=== PATIENT | female | born 1960 | race Caucasian/White ===

== ENCOUNTER 2019-12-24 09:25 | Outpatient (CLI) | payer MEDICARE, BC, SELFPAY ==
--- NOTE | 2019-12-24 | ECHO_ITS ---
Patient Info Name: Ronel Salinas Age: 59 years : 1960 Gender: Female Ht: 63 in Wt: 280 lbs BSA: 2.46 m2 HR: 52 bpm BP: 170 / 73 mmHg Heart Rhythm: Sinus Rhythm Technical Quality: Fair Exam Date: 12/24/2019 9:55 AM Exam Location: [facility] Patient Status: Outpatient Admit Date: 12/24/2019 Staff Ordering Physician: Fabián, Smiley AGUIRRE Receiver: Jessica Joseph RDCS Attending Provider: Willy, Smiley AGUIRRE Exam Type: CA echo doppler color flow Study Info Indications - chf on continuous 02 Complete two-dimensional, color flow and Doppler transthoracic echocardiogram is performed. Summary 1. Left ventricular chamber dimension is mildly enlarged. 2. Left ventricular systolic function is normal, estimated at Empty. 3. LV contraction is dyssynchronous due to intraventricular conduction delay/bundle branch block. 4. Left atrial chamber dimension is moderately enlarged. 5. There is mild aortic valve sclerosis. 6. There is mild mitral valve regurgitation. Left Ventricle Left ventricular chamber dimension is mildly enlarged. Left ventricular systolic function is normal, estimated at Empty. There is mild concentric increased left ventricular wall thickness. The left ventricular diastolic function is grade I diastolic dysfunction. LV contraction is dyssynchronous due to intraventricular conduction delay/bundle branch block. Right Ventricle Right ventricular chamber dimension is normal. Left Atria Left atrial chamber dimension is moderately enlarged. Right Atria Right atrial chamber dimension is normal. Aortic Valve The aortic valve is trileaflet. There is mild aortic valve sclerosis. Pulmonic Valve The pulmonic valve is not well visualized. Mitral Valve The mitral valve has normal leaflets. There is mild mitral valve regurgitation. Tricuspid Valve The tricuspid valve leaflets are normal. There is mild to moderate tricuspid valve regurgitation. Moderate pulmonary hypertension, estimated pulmonary arterial systolic pressure is 51 mmHg. Pericardium/Pleural The pericardium appears normal. Aorta The aortic root size at the sinus of Valsalva is normal. Left Ventricular Outflow Tract Name Value Normal LVOT 2D LVOT Diameter 2.0 cm LVOT Doppler LVOT Peak Gradient 5 mmHg LVOT Mean Gradient 3 mmHg LVOT VTI 20 cm LVOT VTI/AV VTI Ratio 0.7 LVOT Stroke Volume 62 ml LVOT CO 15.2 l/min LVOT CI 6.2 l/min/m2 Pulmonic Valve Name Value Normal PV Doppler PV Peak Gradient 4 mmHg Mitral Valve Name
== END 2019-12-24 09:26 | disposition home or self-care (01) ==
PROVIDERS: PCP Emergency Medicine; Visit Provider Nurse Practitioner
DX: I50.9 Heart failure, unspecified (principal); I34.0 Nonrheumatic mitral (valve) insufficiency
CPT/HCPCS: 93306

== ENCOUNTER 2019-12-24 10:34 | Emergency (ER) | payer MEDICARE, MEDICAID, SELFPAY ==
--- NOTE | ~2019-12-24 | XR_ITS ---
EXAMINATION: XR chest 2V EXAM DATE: 12/24/2019 11:19 INDICATION: Shortness of breath. TECHNIQUE: Portable AP frontal chest x-ray was obtained. Comparison is made to prior examination from 06/18/2019. FINDINGS: The lungs are clear. There are no pleural effusions. The cardiomediastinal silhouette is within normal limits. There is no pneumothorax suspected. The bones and soft tissues are unremarkab le. IMPRESSION: No acute cardiopulmonary findings. Reviewed, dictated and finalized at location A.
[2019-12-24 10:45] VITALS: BP 170/78; PULSE 77; RESP 24; TEMP 36.5; O2SAT 96
--- NOTE | 2019-12-24 10:55 | ECG_ITS ---
SINUS RHYTHM NORMAL ECG Electronically Signed On 12-24-2019 13:40:58 CDT by Rodrick Magallanes D.O. COMPARED TO ECG 06/18/2019 14:22:04 NO SIGNIFICANT CHANGES MTDD
--- NOTE | 2019-12-24 11:02 | ED.SOB ---
HPI - SOB/Dyspnea General Chief Complaint: Shortness of Breath/Dyspnea Stated Complaint: back and chest pain Time Seen by Provider: 12/24/19 11:02 Source: patient Mode of arrival: ambulatory Limitations: no limitations History of Present Illness HPI Narrative: A 59 y/o female, with a PMHx of COPD, presents to the ED with c/o increased SOB for 3 days. Pt states that she is on 3L of oxygen but her breathing has become more erratic . Pt's SOB is worse when laying flat, which is not normal for her. Pt had an echocardiogram scheduled for today so she figured she should come to the ED for evaluation while she is here. Pt also c/o chest heaviness, right rib pain, right-sided mid back pain, and left shoulder pain. Pt states that the rib pain and back pain are worse when laying down and alleviated when sitting up. She denies a cough, a fever, N/V, and a recent injury. Pertinent past history: COPD Onset (ago): day(s) (3) Exacerbating factors: lying flat Related Data Allergies Allergy/AdvReac Type Severity Reaction Status Date / Time Penicillins Allergy Unknown Verified 06/27/15 15:30 Review of Systems Review of Systems: All systems reviewed & are unremarkable except as noted in HPI and below Constitutional: Constitutional: Denies fever(s) Comments: Denies: a recent injury Cardiovascular: Comments: Reports: chest heaviness Respiratory: Respiratory: Denies cough and Reports dyspnea Gastrointestinal: Gastrointestinal: Denies nausea and Denies vomiting Musculoskeletal: Comments: Reports: right rib pain, right-sided mid back pain, left shoulder pain [facility] Past Medical History Medical History (Updated 12/24/19 @ 13:02 by Dwight Fernando MD) COPD (chronic obstructive pulmonary disease) Oxygen dependent 3L Family History Family History Father Cerebrovascular accident Mother Family history of malignant neoplasm of ovary Social History Social History Smoking status: Smoker, status unknown Alcohol intake: never Comments No PCP on file. Exam Const: General: no acute distress, alert and ill appearing chronically Orientation/consciousness: patient oriented x3 HENMT: Head: normal to inspection Chest: Chest palpation & inspection: tenderness (right inferiorlateral ) Resp: Effort & Inspection: normal respiratory effort Auscultation: wheezes Cardio: Rate: regular rate Rhythm: regular rhythm GI: GI Palp: Yes Soft to palpation and No Tenderness to palpation present (GI) Skin: General skin exam: normal color Neuro: General: patient oriented x3, moves all extremities and no focal motor deficits Speech: normal speech Extrem: General: no edema Course Vital Signs Vital signs: Vital Signs Temperature 36.5 C 12/24/19 10:45 Pulse Rate 77 12/24/19 10:45 Respiratory Rate 24 H 12/24/19 10:45 Blood Pressure 170/78 H 12/24/19 10:45 Pulse Oximetry 96 12/24/19 10:45 Temperature 36.5 C 12/24/19 10:45 Pulse Rate 77 12/24/19 13:20 Respiratory Rate 24 H 12/24/19 13:20 Blood Pressure 123/90 12/24/19 13:20 Pulse Oximetry 99 12/24/19 13:20 MDM - SOB/Dyspnea Medical Records Attestation: I reviewed the patient's medical records. Lab Data Attestation: I reviewed the patient's lab results. Result diagrams: 12/24/19 11:03 12/24/19 11:03 Labs: Lab Results 12/24/19 12/24/19 Range/Units 11:03 11:03 WBC 12.9 H (4.5-10.0) K/mm3 RBC 4.67 (4.2-5.4) M/mm3 Hgb 13.8 (12.0-15.0) g/dL Hct 43.7 (37.0-47.0) % MCV 93.6 (80-100) fl MCH 29.6 (26-34) pg MCHC 31.6 L (32-36) g/dl RDW 12.8 (11.5-14.5) % Plt Count 267 (150-375) k/mm3 MPV 11.2 H (7.4-10.4) fl Immature Gran % (Auto) 0.5 (0-0.5) % Neut % (Auto) 72.4 (45.5-73.1) % Lymph % (Auto) 14.5 L (18.3-44.2) % [place] % (Auto) 6.6 (2.6-8.5) % Eos % (Auto) 5.6 H
[2019-12-24 11:09] LABS: Basophils Absolute Auto 0.1 K/mm3 (0.0-0.1); Basophils Percent Auto 0.4 % (0.2-1.2); Eosinophils Absolute Auto 0.7 K/mm3 (0-0.3); Eosinophils Percent Auto 5.6 % (0-4.4); Hematocrit 43.7 % (37.0-47.0); Hemoglobin 13.8 g/dL (12.0-15.0); Immature Granulocyte Absolute 0.07 K/mm3 (0.00-0.031); Immature Granulocyte Percent A 0.5 % (0-0.5); Lymphocytes Absolute Auto 1.87 K/mm3 (0.9-3.2); Lymphocytes Percent Auto 14.5 % (18.3-44.2); Mean Corpuscular HGB Conc 31.6 g/dl (32-36); Mean Corpuscular Hemoglobin 29.6 pg (26-34); Mean Corpuscular Volume 93.6 fl (80-100); Mean Platelet Volume 11.2 fl (7.4-10.4); Monocytes Absolute Auto 0.9 K/mm3 (0.1-0.6); Monocytes Percent Auto 6.6 % (2.6-8.5); Neutrophils Absolute Auto 9.3 K/mm3 (1.3-6.7); Neutrophils Percent Auto 72.4 % (45.5-73.1); Platelet Count Result 267 k/mm3 (150-375); Red Blood Count 4.67 M/mm3 (4.2-5.4); Red Cell Distribution Width 12.8 % (11.5-14.5); White Blood Count 12.9 K/mm3 (4.5-10.0)
[2019-12-24 11:20] LABS: Blood Urea Nitrogen 10 mg/dL (7-17); Calcium 9.4 mg/dL (8.4-10.2); Carbon Dioxide 36 mmol/L (22-30); Chloride 102 mmol/L (98-107); Estimated CRCL calculation 134 ml/min; Estimated Glomerular Filt Rate > 60; Glucose 116 mg/dL (65-105); Potassium 4.2 mmol/L (3.4-5.0); Sodium 139 mmol/L (137-145)
[2019-12-24] MEDS: ALBUTEROL SULFATE NEB 2.5 MG/0.5 ML INH 5 MG INHALATION (11:30)
[2019-12-24 11:31] VITALS: PULSE 110; RESP 18
[2019-12-24] MEDS: IPRATROPIUM BR 0.02% INH SOLN 0.5 MG/2.5 ML VIAL INHALATION (11:31)
[2019-12-24 11:37] VITALS: PULSE 115; RESP 18
[2019-12-24 12:00] VITALS: BP 150/76; PULSE 77; RESP 24; O2SAT 98
[2019-12-24] MEDS: predniSONE 20 MG TABLET 60 MG PO (13:17)
[2019-12-24 13:20] VITALS: BP 123/90; PULSE 77; RESP 24; O2SAT 99
== END 2019-12-24 13:20 | disposition home or self-care (01) ==
PROVIDERS: Emergency Provider Emergency Medicine; PCP Emergency Medicine
DX: J44.1 Chronic obstructive pulmonary disease with (acute) exacerbation (principal); Z99.81 Dependence on supplemental oxygen
CPT/HCPCS: 36415; 71046; 80048; 85025; 93005; 93306; 94640; 99284; J7512

== ENCOUNTER 2020-03-27 16:51 | Outpatient (CLI) | payer MEDICARE, MEDICAID, SELFPAY ==
--- NOTE | ~2020-03-27 | CT_ITS ---
EXAMINATION: CT lung screening DATE: 03/27/2020 17:17 INDICATION: Personal history of nicotine dependence, prior smoker with 30 pack year history TECHNIQUE: Computed tomography (CT) of the chest was performed without intravenous contrast. The dose -length product (DLP) was 393.66 mGy-cm. 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 COMPARISON: 08/03/2018 FINDINGS: There is a stable 4 mm nodule of the right upper lobe on image 37. There are stable, adjace nt 6 mm and 4 mm nodules in the medial aspect of the right upper lobe on image 36. No new pulmonary n odule is identified. There is no pleural effusion or pneumothorax. Mild atelectasis is noted in the l ower lobes, lingula, and right middle lobe. No pathologically enlarged thoracic lymph nodes are ident ified. The heart size is normal. Calcified coronary artery atherosclerosis is noted. There is mild em physema. Punctate calcifications in an otherwise normal spleen likely represent healed granulomatous disease. Calcified pulmonary nodules and calcified left hilar lymph nodes are consistent with old gra nulomatous disease. There is mild thoracic spondylosis. IMPRESSION: 1. Lung-RADS category 2: Benign appearance or behavior. Continue annual screening with noncontrast lo w-dose chest CT in 12 months. Reviewed, dictated and finalized at location A. IMPRESSION: 1. Lung-RADS category 2: Benign appearance or behavior. Continue annual screeni ng with noncontrast low-dose chest CT in 12 months.
== END 2020-03-27 16:52 | disposition home or self-care (01) ==
PROVIDERS: PCP Emergency Medicine; Visit Provider Emergency Medicine
DX: Z12.2 Encounter for screening for malignant neoplasm of respiratory organs (principal); Z87.891 Personal history of nicotine dependence
CPT/HCPCS: G0297

== ENCOUNTER 2020-04-22 00:32 | Outpatient (CLI) | payer MEDICARE, MEDICAID, SELFPAY ==
[2020-04-22 18:31] LABS: SARS-CoV-2 RNA PCR Negative
== END 2020-04-22 00:33 | disposition home or self-care (01) ==
LOC: ANHCOVIDDT 00:32
PROVIDERS: PCP Emergency Medicine; Visit Provider Internal Medicine Cardiovascular Disease
DX: Z01.812 Encounter for preprocedural laboratory examination (principal); Z11.59 Encounter for screening for other viral diseases
CPT/HCPCS: 87635; C9803; U0003

== ENCOUNTER 2020-04-25 05:27 | Day surgery (SDC) | payer MEDICARE, MEDICAID, SELFPAY ==
[2020-04-24 16:30] VITALS: BMI 49.7
[2020-04-25] VITALS (9 sets, daily range): BP systolic 112–134; BP diastolic 56–80; PULSE 62–80; RESP 14–25; TEMP 36.6; O2SAT 91–100; BMI 51.5
[2020-04-25 10:12] LABS: Basophils Percent Auto 0.4 % (0.2-1.2); Eosinophils Absolute Auto 0.1 K/mm3 (0-0.3); Eosinophils Percent Auto 1.1 % (0-4.4); Immature Granulocyte Absolute 0.05 K/mm3 (0.00-0.031); Immature Granulocyte Percent A 0.5 % (0-0.5); Lymphocytes Absolute Auto 2.08 K/mm3 (0.9-3.2); Lymphocytes Percent Auto 19.2 % (18.3-44.2); Mean Corpuscular HGB Conc 32.6 g/dl (32-36); Mean Corpuscular Hemoglobin 30.4 pg (26-34); Mean Corpuscular Volume 93.1 fl (80-100); Mean Platelet Volume 11.2 fl (7.4-10.4); Monocytes Absolute Auto 0.9 K/mm3 (0.1-0.6); Monocytes Percent Auto 8.1 % (2.6-8.5); Neutrophils Absolute Auto 7.7 K/mm3 (1.3-6.7); Neutrophils Percent Auto 70.7 % (45.5-73.1); Platelet Count Result 340 k/mm3 (150-375); Red Blood Count 4.94 M/mm3 (4.2-5.4); White Blood Count 10.8 K/mm3 (4.5-10.0)
[2020-04-25 10:16] LABS: INR 0.9; Prothrombin Time 12.3 Seconds (11.1-14.7)
[2020-04-25 10:18] LABS: Blood Urea Nitrogen 20 mg/dL (7-17); Calcium 9.4 mg/dL (8.4-10.2); Carbon Dioxide 34 mmol/L (22-30); Chloride 98 mmol/L (98-107); Estimated CRCL calculation 102 ml/min; Estimated Glomerular Filt Rate > 60; Glucose 118 mg/dL (65-105); Sodium 138 mmol/L (137-145)
--- NOTE | 2020-04-25 10:46 | WPDMODSED ---
Moderate Sedation Note-Pt Data Patient Data Allergies Allergy/AdvReac Type Severity Reaction Status Date / Time Penicillins Allergy Unknown Swelling Verified 04/24/20 16:38 Home Medications Medication Instructions Recorded Confirmed Type Excedrin Migraine 2 tab-cap BYMOUTH PRN 04/24/20 04/24/20 History albuterol sulfate [Ventolin HFA] 2 puff INHALATION Q6H 04/24/20 04/24/20 History alprazolam 0.5 mg PO TID 04/24/20 04/24/20 History aspirin 325 mg PO DAILY 04/24/20 04/24/20 History baclofen 10 mg PO TID 04/24/20 04/24/20 History bupropion HCl 150 mg PO DAILY 04/24/20 04/24/20 History ergocalciferol (vitamin D2) 1 unit PO WEEKLY 04/24/20 04/24/20 History [Vitamin D2] escitalopram oxalate 10 mg PO DAILY 04/24/20 04/24/20 History fluticasone furoate-vilanterol 1 inh INHALATION DAILY 04/24/20 04/24/20 History [Breo Ellipta] furosemide 40 mg PO BID 04/24/20 04/24/20 History gabapentin 100 mg PO DIRECTED 04/24/20 04/24/20 History hydrocodone-acetaminophen 1 tablet PO Q6H PRN 04/24/20 04/24/20 History levothyroxine 1 mcg PO DAILY 04/24/20 04/24/20 History losartan 100 mg PO DAILY 04/24/20 04/24/20 History metformin 500 mg PO BIDPC 04/24/20 04/24/20 History omeprazole 20 mg PO BID 04/24/20 04/24/20 History promethazine 25 mg PO Q6H PRN 04/24/20 04/24/20 History roflumilast [Daliresp] 500 mcg PO DAILY 04/24/20 04/24/20 History rosuvastatin 20 mg PO DAILY 04/24/20 04/24/20 History tiotropium bromide [Spiriva with 1 cap INHALATION DAILY 04/24/20 04/24/20 History HandiHaler] verapamil 360 mg PO HS 04/24/20 04/24/20 History Current Medications: Active Medications Sodium Chloride (Normal Saline Iv) 500 mls @ 100 mls/hr IV CONT .Q5H PERLA Sedation/Anesthesia: No previous sedation/anesthesia problems (including family history). [facility] Past Medical History Medical History (Updated 12/25/19 @ 00:00 by Pardeep Esquivel) COPD (chronic obstructive pulmonary disease) Oxygen dependent 3L Social History Social History Years smoked: 48 Smoking status: Former smoker Tobacco type: cigarettes Second hand tobacco smoke exposure: Yes Alcohol intake: never Substance use: never Last use: 04/14/20 Living arrangements: with family Gender identity (if verbalized by the patient): Female Spiritual care concerns: No Mod Sed Physical Exam Physical Exam Pre Procedural Exam: Normal: Airway Hours since solid foods: 10 Hours since liquid intake: 10 Internal Medicine - PN: Obj Da Vital Signs Vital Signs: Vital Signs - 24 hr 04/25/20 09:49 Temperature 36.6 C Pulse Rate 80 Respiratory Rate 14 Blood Pressure 112/70 Pulse Oximetry 100 Meds/Results Medications: Active Medications Generic Name Dose Route Start Last Admin Trade Name Freq PRN Reason Stop Dose Admin Sodium Chloride 500 mls @ 100 mls/hr 04/25/20 06:00 Normal Saline Iv IV CONT .Q5H [facility] Labs CBC & Chem 7: 04/25/20 09:37 04/25/20 09:37 Labs: Laboratory Results - last 24 hr 04/25/20 04/25/20 04/25/20 09:37 09:37 09:37 WBC 10.8 H RBC 4.94 Hgb 15.0 Hct 46.0 MCV 93.1 MCH 30.4 MCHC 32.6 RDW 12.0 Plt Count 340 MPV 11.2 H Immature Gran % (Auto) 0.5 Neut % (Auto) 70.7 Lymph % (Auto) 19.2 [place] % (Auto) 8.1 Eos % (Auto) 1.1 Baso % (Auto) 0.4 Lymph # (Auto) 2.08 [place] # (Auto) 0.9 H Eos # (Auto) 0.1 Baso # (Auto) 0.0 Abs Immat Gran (auto) 0.05 H Absolute Neuts (auto) 7.7 H Absolute Nucleated RBC 0.0 Nucleated RBC % 0.0 PT 12.3 INR 0.9 Sodium 138 Potassium 4.0 Chloride 98 Carbon Dioxide 34 H BUN 20 H D Creatinine 0.70 Estim Creat Clear Calc 102 Estimated GFR > 60 Glucose 118 H Calcium 9.4 ASA Classification/Sedation ASA Classification/Sedation Risks: Risks, benefits and alternatives explained and patient/family accep
--- NOTE | 2020-04-25 10:54 | PM.IMHP ---
H&P: HPI History of Present Illness Chief complaint: Chest Pain,Abnormal Stress Test,SOB Narrative: Ronel Salinas is a 59 year old female with hypertension, CHF with preserved ejection fraction, diabetes mellitus, COPD, pulmonary hypertension, dyslipidemia, morbid obesity, obstructive sleep apnea, hypothyroidism on thyroxine replacement. Patient has ongoing dyspnea on exertion which is multifactorial from chronic respiratory failure from underlying COPD/emphysema, CHF with preserved ejection fraction based on recent echocardiogram, pulmonary hypertension, morbid obesity. She has also been experiencing episodes of chest discomfort and palpitations. She is being brought to the photographic laboratory technician for right and left heart catheterization in the setting of shortness of breath, chest discomfort and abnormal MPI which was performed on 02/23/2020, and reported LVEF 63%, chano-infarct ischemia at the apex particularly apical inferior wall, inferior perfusion defect in the mid-basal inferior wall. [facility] Past Medical History Medical History COPD (chronic obstructive pulmonary disease) Oxygen dependent 3L Family History Family History Father Cerebrovascular accident Mother Family history of malignant neoplasm of ovary Social History Social History Years smoked: 48 Smoking status: Former smoker Tobacco type: cigarettes Second hand tobacco smoke exposure: Yes Alcohol intake: never Substance use: never Last use: 04/14/20 Living arrangements: with family Gender identity (if verbalized by the patient): Female Spiritual care concerns: No Meds Home Medications and Allergies Home Medications Medication Instructions Recorded Confirmed Type Excedrin Migraine 2 tab-cap BYMOUTH PRN 04/24/20 04/24/20 History albuterol sulfate [Ventolin HFA] 2 puff INHALATION Q6H 04/24/20 04/24/20 History alprazolam 0.5 mg PO TID 04/24/20 04/24/20 History aspirin 325 mg PO DAILY 04/24/20 04/24/20 History baclofen 10 mg PO TID 04/24/20 04/24/20 History bupropion HCl 150 mg PO DAILY 04/24/20 04/24/20 History ergocalciferol (vitamin D2) 1 unit PO WEEKLY 04/24/20 04/24/20 History [Vitamin D2] escitalopram oxalate 10 mg PO DAILY 04/24/20 04/24/20 History fluticasone furoate-vilanterol 1 inh INHALATION DAILY 04/24/20 04/24/20 History [Breo Ellipta] furosemide 40 mg PO BID 04/24/20 04/24/20 History gabapentin 100 mg PO DIRECTED 04/24/20 04/24/20 History hydrocodone-acetaminophen 1 tablet PO Q6H PRN 04/24/20 04/24/20 History levothyroxine 1 mcg PO DAILY 04/24/20 04/24/20 History losartan 100 mg PO DAILY 04/24/20 04/24/20 History metformin 500 mg PO BIDPC 04/24/20 04/24/20 History omeprazole 20 mg PO BID 04/24/20 04/24/20 History promethazine 25 mg PO Q6H PRN 04/24/20 04/24/20 History roflumilast [Daliresp] 500 mcg PO DAILY 04/24/20 04/24/20 History rosuvastatin 20 mg PO DAILY 04/24/20 04/24/20 History tiotropium bromide [Spiriva with 1 cap INHALATION DAILY 04/24/20 04/24/20 History HandiHaler] verapamil 360 mg PO HS 04/24/20 04/24/20 History Allergies Allergy/AdvReac Type Severity Reaction Status Date / Time Penicillins Allergy Unknown Swelling Verified 04/24/20 16:38 Vital Signs Vital Signs - 24 hr 04/25/20 09:49 Temperature 36.6 C Pulse Rate 80 Respiratory Rate 14 Blood Pressure 112/70 Pulse Oximetry 100 Exam Const: General: no acute distress, alert, awake and other ( Obese) HENMT: Head: normocephalic and atraumatic Ears: hearing grossly normal bilaterally and external ears normal General nose exam: Normal external nose present and no epistaxis Face and sinus: normal facial exam and no ecchymosis Mouth: Yes tongue normal and Yes moist mucous membranes Teeth and gingiva: dentition normal Eyes: Conjunctivae: conjunctivae normal Sclera: sclerae normal Pupils: Equal, ro
--- NOTE | 2020-04-25 11:48 | WPDCARDPROC ---
Cardiac Cath Procedure Note Date of procedure:: 04/25/20 Performing physician:: Delbert Sparrow MD Procedure Procedure note:: LEFT AND RIGHT HEART CATHETERIZATION AND CORONARY ANGIOGRAM REPORT DATE OF PROCEDURE: 04/25/2020 INDICATION FOR PROCEDURE: SHORTNESS OF BREATH, CHEST PRESSURE, ABNORMAL MPI BRIEF CLINICAL HISTORY:59 year old female with hypertension, CHF with preserved ejection fraction, diabetes mellitus, COPD, pulmonary hypertension, dyslipidemia, morbid obesity, obstructive sleep apnea, hypothyroidism on thyroxine replacement. Patient has ongoing dyspnea on exertion which is multifactorial from chronic respiratory failure from underlying COPD/emphysema, CHF with preserved ejection fraction based on recent echocardiogram, pulmonary hypertension, morbid obesity. She has also been experiencing episodes of chest discomfort and palpitations. She is being brought to the labor relations consultant for right and left heart catheterization in the setting of shortness of breath, chest discomfort and abnormal MPI which was performed on 02/23/2020, and reported LVEF 63%, chano-infarct ischemia at the apex particularly apical inferior wall, inferior perfusion defect in the mid-basal inferior wall. Benefits and risks of the procedure were discussed with the patient in depth, and informed consent was obtained prior to the procedure. Risks of the procedure include but are not limited to vascular complications including groin hematoma, retroperitoneal bleed, vessel perforation; periprocedural DC, cardiac arrhythmias, stroke, contrast induced nephropathy, and . After discussing all the benefits, risks and alternatives, patient was willing to proceed with the procedure. PROCEDURES PERFORMED: 1. Left heart catheterization- Selective left and right coronary angiogram; left ventriculogram and hemodynamic assessment 2. Right heart catheterization with hemodynamic assessment 3. Selective right common femoral angiogram and deployment of Angio-Seal hemostatic device 4. Moderate sedation-CPT code 80214 MODERATE SEDATION: Midazolam 3 mg; fentanyl 75 mcg; Start time 1113 , Stop time 1139 ; Total [id number] time 26 minutes; Mireille Mcnair RN was trained observer for moderate sedation. ACCESS SITE: Right common femoral artery & vein PROCEDURE NOTE: After obtaining informed consent, patient was brought to catheterization lab and prepped and draped in a usual sterile manner. After local anesthesia with lidocaine, right common femoral artery access was taken with micropuncture needle followed by insertion of a 5 [place] sheath. Selective right common femoral venous access was taken micropuncture needle followed by insertion of a 7 [place] sheath. Right heart catheterization was performed using C [place] catheter under fluoroscopic guidance. Pressures were measured in the RA, RV, pulmonary artery and pulmonary capillary. O2 saturations were taken from the femoral artery, RA, RV, pulmonary artery. Cardiac output was measured using Wilman method. After completion of right heart catheterization, attention was shifted to the left heart catheterization. Selective left and right coronary angiogram was performed using 5 [place] JL4 and JR4 catheters respectively. Orthogonal views were taken. Next, 5 [place] JR catheter was advanced in the LV cavity and was flushed with normal saline. LV pressure measurement was performed. After this, left ventriculogram was performed. The catheter was flushed again, and gradient across the aortic valve was measured on the pullback of the catheter. Finally, selective right common femoral angiogram was performed followed by successful deployment of Angio-Seal vascular closure device. Patient tolerated procedure well without any immediate procedure related complications. FINDINGS: LEFT MAIN CORONARY: the left main coronary artery is a medium caliber vessel, no significant focal stenosis seen. LEFT ANTERIOR DESCENDING ARTERY: The LAD is a medium
--- NOTE | 2020-04-25 15:11 | SUR.PHASEII ---
04/25/20: 1445: up to bedside recliner. no hematoma or bleeding noted. pulses palpated strong. patient was instructed on what signs and symptoms to monitor for and when to call the nurse. call light and belongings within reach.
== END 2020-04-25 17:00 | disposition home or self-care (01) ==
PROVIDERS: PCP Emergency Medicine; Visit Provider Internal Medicine Cardiovascular Disease
PROC: 4A023N8 Measurement of Cardiac Sampling and Pressure, Bilateral, Percutaneous Approach (ICD-10-PCS; CPT 93453; principal; 2020-04-25 10:00)
DX: I25.10 Atherosclerotic heart disease of native coronary artery without angina pectoris (principal); R94.39 Abnormal result of other cardiovascular function study; R06.02 Shortness of breath; R07.89 Other chest pain; I27.20 Pulmonary hypertension, unspecified; J44.9 Chronic obstructive pulmonary disease, unspecified; Z79.82 Long term (current) use of aspirin; Z79.84 Long term (current) use of oral hypoglycemic drugs; Z99.81 Dependence on supplemental oxygen; Z87.891 Personal history of nicotine dependence; E66.01 Morbid (severe) obesity due to excess calories; Z68.43 Body mass index [BMI] 50.0-59.9, adult
CPT/HCPCS: 36415; 80048; 85025; 85610; 93460; C1760; C1769; C1887; C1894; G0269; J1644; J2250; J3010; J7040

== ENCOUNTER 2020-06-28 15:04 | Outpatient (CLI) | payer MEDICARE, MEDICAID, SELFPAY ==
--- NOTE | ~2020-06-28 | MM_ITS ---
EXAMINATION: MM screening lainey BI w adela HISTORY: Screening mammogram TECHNIQUE: Craniocaudal and mediolateral oblique 3-D tomosynthesis images were obtained and synthetic 2-D images were generated. CAD analysis was submitted and interpreted. COMPARISON: 02/15/2019, 07/29/2014 bilateral digital screening mammogram examinations BREAST PARENCHYMAL COMPOSITION: The breasts are almost entirely fatty. FINDINGS: There is no evidence of suspicious mass, calcification, or architectural distortion to sugg est malignancy in either breast. There has been no suspicious interval change. IMPRESSION: 1. No mammographic evidence of malignancy. 2. Recommend routine screening mammography in one year. BI-RADS Category 1: Negative Reviewed, dictated and finalized at location A.
== END 2020-06-28 15:05 | disposition home or self-care (01) ==
PROVIDERS: PCP Emergency Medicine; Visit Provider Emergency Medicine
DX: Z12.31 Encounter for screening mammogram for malignant neoplasm of breast (principal)
CPT/HCPCS: 77063; 77067

== ENCOUNTER 2020-08-15 15:23 | Outpatient (CLI) | payer MEDICARE, BC, SELFPAY ==
--- NOTE | ~2020-08-15 | DEXA_ITS ---
Bone Density Report Name: Ronel Salinas Age: 59 Sex: Female Ethnicity: White Date of : 1960 Indication: postmenopausal; height loss; Referring Provider: DEZ HERNANDEZ Study: Bone densitometry was performed. Exam Date: August 15, 2020 Accession number: [id number] Bone Density: Region BMD T-score Z-score Classification AP Spine (L1-L4) 0.949 -0.9 0.4 Normal Femoral Neck (Left) 0.700 -1.3 -0.2 Osteopenia Total Hip (Left) 0.886 -0.5 0.4 Normal Total Hip Bilateral Avg 0.883 -0.5 0.4 Normal Femoral Neck (Right) 0.704 -1.3 -0.1 Osteopenia Total Hip (Right) 0.880 -0.5 0.3 Normal World Health Organization criteria for BMD impression classify patients as: Normal (T-score at or above -1.0), Osteopenia (T-score between -1.0 and -2.5), or Osteoporosis (T-score at or below -2.5). 10-year Fracture Risk(1): Major Osteoporotic Fracture 5.8% Hip Fracture 0.6% Reported Risk Factors: [place] (), Neck BMD=0.704, BMI=47.3, smoking Input outside FRAX(R) limits. Adjusted to:Pfrnzb=558 kg (1) FRAX(R) Version 3.08. Fracture probability calculated for an untreated patient. Fracture probability may be lower if the patient has received treatment. Clinical Information Provided by Patient: Smokes Patient maximum height was 65 Menopause Age: 54 No regular weight bearing exercise Drinks caffeinated beverages Onset of menses at age 14 Number of children 3 Impression: The patient has low bone mass, based on the Left Femoral Neck T-score. The patient has an estimated ten-year risk of hip fracture of 0.6% and an estimated ten-year risk of major fracture of 5.8%, based on the WHO FRAX algorithm. The patient has risk factors, including: smoking. Discussion: BONE DENSITY IS LOW AT ONE OR MORE SKELETAL SITES. This patient's lowest T-score is low at one or more skeletal sites. It meets the World Health Organization's (WHO) criteria for ?low bone mass? (T-score between -1.0 and -2.5). The patient's 10-year risk of fracture as calculated by FRAX is less than the threshold where pharmacological therapy is recommended by the National Osteoporosis Foundation (NOF). However, all treatment decisions require clinical judgment and consideration of individual patient factors, including patient preferences, comorbidities, previous drug use, risk factors not captured in the FRAX model (e.g., frailty, falls, vitamin D deficiency, increased bone turnover, interval significant decline in bone density) and possible under or overestimation of fracture risk by FRAX. The patient should follow a healthful lifestyle (good nutrition with adequate calcium and vitamin D, and appropriate weight-bearing exercise). Follow-Up: Consider repeating this study in 2 to 3 years to reassess this patient's status, or sooner if there is some new clinical ind
== END 2020-08-15 15:24 | disposition home or self-care (01) ==
LOC: ANHIMG 15:24
PROVIDERS: PCP Emergency Medicine; Visit Provider Emergency Medicine
DX: Z78.0 Asymptomatic menopausal state (principal); M85.852 Other specified disorders of bone density and structure, left thigh; M85.851 Other specified disorders of bone density and structure, right thigh
CPT/HCPCS: 77080

== ENCOUNTER 2021-02-16 13:02 | Outpatient (CLI) | payer MEDICARE, MEDICAID, SELFPAY ==
[2021-02-16] VITALS (7 sets, daily range): O2SAT 87–92
--- NOTE | 2021-02-16 16:49 | WPDPFTINT ---
PFT Procedure Performed PFT Procedure Performed Spirometry with Pre/Post Bronchodilator Plethysmography (Lung Vol) Diffusing Cap (DLCO) Flow Vol Loop PFT Interpretation This is a pulmonary function test with pre and post-bronchodilator spirometry, plethysmography and diffusing capacity. The test was performed and results interpreted in accordance with the 2019 and 2005 ATS/ERS Task Force guidelines respectively using the Global Lung Function Initiative-2012 reference equations. Patient demonstrated good effort and cooperation. Reproducibility criteria were met. The quality of the pre bronchodilator spirometry maneuver was Grade B and post bronchodilator spirometry maneuver was Grade A. Findings: Spirometry: There is decreased maximal expiratory airflow at low lung volumes with concave expiratory flow tracing. The pre bronchodilator FVC is 1.57 L, 53% predicted. The pre bronchodilator FEV1 is 0.93 L, 39% predicted. The FEV1: FVC ratio is 59%. The post bronchodilator FVC is 1.63 L, representing a 4% increase. The post bronchodilator FEV1 is 1.02 L, representing a 10% increase. Plethysmography: The total lung capacity is 4.43 L, 94% predicted. Functional residual capacity is 3.13 L, 118% predicted. The residual volume is 2.86 L, 156% predicted. Diffusion capacity: The absolute diffusion capacity is 13.8, 66% predicted. The diffusing capacity corrected for alveolar volume is 4.43, 97% predicted. Impression: There is a severe obstructive abnormality without significant improvement after inhaling a single dose of albuterol. The increase in residual volume is consistent with air trapping from an obstructive abnormality. The absolute diffusing capacity is mildly decreased and normalizes when corrected for alveolar volume. There are no prior studies for comparison
--- NOTE | 2021-02-16 17:28 | HOMEO2EVAL ---
Evaluation was performed at [facility] Home Oxygen Evaluation RC: Home Oxygen (O2) Evaluation Start: 02/16/21 17:23 Freq: Status: Active Protocol: RPE Activity Type Activity Date Activity User E-Sign Co-Sign Detail Recorded Client Recorded Date Recorded By Document 02/16/21 13:30 ISABELLA [id number] 02/16/21 17:28 ISABELLA Document 02/16/21 13:31 ISABELLA [email or web address] 02/16/21 17:28 ISABELLA Document 02/16/21 13:32 ISABELLA [id number] 02/16/21 17:28 ISABELLA Document 02/16/21 13:33 ISABELLA [id number] 02/16/21 17:28 ISABELLA Document 02/16/21 13:35 ISABELLA [email or web address] 02/16/21 17:28 ISABELLA Document 02/16/21 13:37 ISABELLA [id number] 02/16/21 17:28 ISABELLA Document 02/16/21 13:45 ISABELLA [id number] 02/16/21 17:28 ISABELLA 02/16/21 02/16/21 02/16/21 13:30 13:31 13:32 Home O2 Evaluation Test Phase Resting Resting Resting Oxygen Delivery Room Air Nasal Cannula Nasal Cannula Oxygen Flow Rate (L/min) 1 2 Pulse Oximetry (90-100 %) 87 L 87 L 87 L Ambulation Distance (feet) Home Oxygen Evaluation Comments Treatment Charges O2 Evaluation - Inpatient 02/16/21 02/16/21 02/16/21 13:33 13:35 13:37 Home O2 Evaluation Test Phase Resting Exercise Exercise Oxygen Delivery Nasal Cannula Nasal Cannula Nasal Cannula Oxygen Flow Rate (L/min) 3 3 4 Pulse Oximetry (90-100 %) 91 87 L 89 L Ambulation Distance (feet) 300 Home Oxygen Evaluation Comments PT REQUIRES 3L PULSE DOSE O2 AT REST AND PULSE DOSE O2 AT 4L EXERTION. PT WALKED 6 MINUTES WITH 1 BREAK AND NO WALKING AIDS. Treatment Charges 02/16/21 13:45 Home O2 Evaluation Test Phase Resting Oxygen Delivery Nasal Cannula Oxygen Flow Rate (L/min) 3 Pulse Oximetry (90-100 %) 92 Ambulation Distance (feet) Home Oxygen Evaluation Comments Treatment Charges
== END 2021-02-16 13:03 | disposition home or self-care (01) ==
LOC: ANHPFT 13:06
PROVIDERS: PCP Emergency Medicine; Visit Provider Nurse Practitioner
DX: J44.9 Chronic obstructive pulmonary disease, unspecified (principal); R94.2 Abnormal results of pulmonary function studies
CPT/HCPCS: 94060; 94618; 94726; 94729

== ENCOUNTER 2021-02-26 14:36 | Outpatient (CLI) | payer MEDICARE, MEDICAID, SELFPAY ==
--- NOTE | ~2021-02-26 | CT_ITS ---
EXAMINATION: CT diagnostic chest wo con DATE: 02/26/2021 15:05 INDICATION: Lung nodule follow-up TECHNIQUE: Computed tomography (CT) of the chest was performed without intravenous contrast. The dose -length product was 591.15 mGy-cm. Automated exposure control and iterative reconstruction technique were employed. COMPARISON: CT dated 03/27/2020 FINDINGS: Stable 4 mm right upper lobe nodule. Stable 6 and 4 mm nodules medial aspect right upper lo be, image 32. No new pulmonary nodules or masses. There is a calcified granuloma the right middle lob e. Stable mildly enlarged mediastinal lymph nodes in the prevascular space and right paratracheal loc ations. Right paratracheal lymph node measures 1.4 cm short axis. These are likely reactive. Calcifie d granulomas of the spleen. Cardiomegaly. Trace pericardial effusion. No significant pleural effusion . There is coronary atherosclerosis. Mild emphysema. Mild thoracic spondylosis. IMPRESSION: 1. Stable pulmonary nodules of the right upper lobe, largest measuring 6 mm, likely benign. Follow-up CT chest in 12 months recommended. 2: Stable mediastinal lymphadenopathy, likely reactive. 3: Trace pericardial effusion. Reviewed, dictated and finalized at location A. IMPRESSION: 1. Stable pulmonary nodules of the right upper lobe, largest measuring 6 mm, li anupama benign. Follow-up CT chest in 12 months recommended. 2: Stable mediastinal lymphadenopathy, likely reactive. 3: Trace pericardial effusion.
== END 2021-02-26 14:37 | disposition home or self-care (01) ==
LOC: ANHIMG 14:39
PROVIDERS: PCP Emergency Medicine; Visit Provider Nurse Practitioner
DX: R91.1 Solitary pulmonary nodule (principal)
CPT/HCPCS: 71250

== ENCOUNTER 2021-09-26 08:43 | Emergency (ER) | payer MEDICARE, MEDICAID, SELFPAY ==
[2021-09-26] VITALS (15 sets, daily range): BP systolic 132–149; BP diastolic 77–79; PULSE 76–101; RESP 13–29; TEMP 36.2; O2SAT 92–95
--- NOTE | ~2021-09-26 | XR_ITS ---
EXAMINATION: XR chest 2V DATE: 09/26/2021 09:11 INDICATION: Shortness of breath. Chest pain. TECHNIQUE: Frontal and lateral views of the chest were obtained. COMPARISON: Chest 2 views 12/24/2019, chest CT 02/26/2021 FINDINGS: Sensitivity is decreased by obesity. There is a diffuse interstitial pattern in the lungs. No pleural effusion or pneumothorax. Cardiomegaly is noted. IMPRESSION: 1. Diffuse interstitial pattern in the lungs, consistent with mild pulmonary edema versus atypical pn eumonia. 2. Cardiomegaly. Reviewed, dictated and finalized at location A. MERCE MERCHANDISING MANAGER IMPRESSION: 1. Diffuse interstitial pattern in the lungs, consistent with mild pulmonary ed shona versus atypical pneumonia. 2. Cardiomegaly.
--- NOTE | 2021-09-26 08:53 | ECG_ITS ---
Measurements Intervals [place] Rate: 97 P: 64 CT: 160 QRS: 51 QRSD: 97 T: 48 QT: 358 QTc: 456 Interpretive Statements SINUS RHYTHM BORDERLINE ST-T WAVE ABNORMALITY- INF/LAT LEADS BASELINE WANDER- V1, V3 BORDERLINE ECG Electronically Signed On 09-26-2021 10:41:02 BALLROOM DANCER by Rodrick Magallanes D.O.
[2021-09-26 09:25] LABS: Basophils Percent Auto 0.3 % (0.2-1.2); Hemoglobin 14.6 g/dL (12.0-15.0); Immature Granulocyte Absolute 0.03 K/mm3 (0.00-0.031); Immature Granulocyte Percent A 0.4 % (0-0.5); Lymphocytes Absolute Auto 1.05 K/mm3 (0.9-3.2); Lymphocytes Percent Auto 13.3 % (18.3-44.2); Mean Corpuscular HGB Conc 31.1 g/dl (32-36); Mean Corpuscular Hemoglobin 29.6 pg (26-34); Mean Corpuscular Volume 95.1 fl (80-100); Mean Platelet Volume 10.8 fl (7.4-10.4); Monocytes Absolute Auto 0.6 K/mm3 (0.1-0.6); Monocytes Percent Auto 8.1 % (2.6-8.5); Neutrophils Absolute Auto 6.1 K/mm3 (1.3-6.7); Neutrophils Percent Auto 77.9 % (45.5-73.1); Platelet Count Result 239 k/mm3 (150-375); Red Blood Count 4.94 M/mm3 (4.2-5.4); Red Cell Distribution Width 12.8 % (11.5-14.5); White Blood Count 7.9 K/mm3 (4.5-10.0)
[2021-09-26 09:31] LABS: INR 0.9; Prothrombin Time 12.3 Seconds (11.1-14.7)
[2021-09-26] MEDS: ASPIRIN 81 MG CHEWABLE TABLET 324 MG PO (09:41)
--- NOTE | 2021-09-26 13:46 | ED.GENADULT ---
HPI - General Adult General Chief complaint: Shortness of Breath/Dyspnea <Anabela Duffy PA-C - Last Filed: 09/26/21 16:21> Stated complaint: sob <RODRIGO Sin Last Filed: 09/26/21 16:21> Time Seen by Provider: 09/26/21 13:44 <Anabela Duffy PA-C - Last Filed: 09/26/21 16:21> Source: patient <RODRIGO Sin Last Filed: 09/26/21 16:21> Mode of arrival: ambulatory <RODRIGO Sin Last Filed: 09/26/21 16:21> Limitations: no limitations <RODRIGO Sin Last Filed: 09/26/21 16:21> History of Present Illness HPI narrative: 52-year-old female who is here for evaluation of worsening shortness of breath. States that this episode began approximately 5 days ago. She called her physician she was prescribed steroids and an antibiotic, she is completed both of those and is no better she states that last night she became excessively short of breath while sleeping with her CPAP on and had to get out of bed moved to the couch, gave herself 2 breathing treatments in a row and increased her oxygen she felt a little bit better. She states that she is also had a low-grade fever at home sometimes up to 101. She is taking all of her home medications as prescribed. She is on baseline 3 L/min at home. She is fully vaccinated. <Anabela Duffy PA-C - Last Filed: 09/26/21 16:21> Onset (ago): day(s) <RODRIGO Sin Last Filed: 09/26/21 16:21> Related Data Home medications: Home Medications Medication Instructions Recorded Confirmed Breo Ellipta 1 inh INHALATION DAILY 04/24/20 04/24/20 Daliresp 500 mcg PO DAILY 04/24/20 04/24/20 Excedrin Migraine 2 tab-cap BYMOUTH PRN 04/24/20 04/24/20 Spiriva with HandiHaler 1 cap INHALATION DAILY 04/24/20 04/24/20 albuterol sulfate [Ventolin HFA] 2 puff INHALATION Q6H 04/24/20 04/24/20 alprazolam 0.5 mg PO TID 04/24/20 04/24/20 baclofen 10 mg PO TID 04/24/20 04/24/20 bupropion HCl 150 mg PO DAILY 04/24/20 04/24/20 ergocalciferol (vitamin D2) 1 unit PO WEEKLY 04/24/20 04/24/20 [Vitamin D2] escitalopram oxalate 10 mg PO DAILY 04/24/20 04/24/20 furosemide 40 mg PO BID 04/24/20 04/24/20 gabapentin 100 mg PO DIRECTED 04/24/20 04/24/20 hydrocodone-acetaminophen 1 tablet PO Q6H PRN 04/24/20 04/24/20 levothyroxine 1 mcg PO DAILY 04/24/20 04/24/20 losartan 100 mg PO DAILY 04/24/20 04/24/20 metformin 500 mg PO BIDPC 04/24/20 04/24/20 omeprazole 20 mg PO BID 04/24/20 04/24/20 promethazine 25 mg PO Q6H PRN 04/24/20 04/24/20 rosuvastatin 20 mg PO DAILY 04/24/20 04/24/20 verapamil 360 mg PO HS 04/24/20 04/24/20 <Anabela Duffy PA-C - Last Filed: 09/26/21 16:21> Allergies/adverse reactions: Allergies Allergy/AdvReac Type Severity Reaction Status Date / Time Penicillins Allergy Unknown Swelling Verified 04/24/20 16:38 <Anabela Duffy PA-C - Last Filed: 09/26/21 16:21> Review of Systems Review of Systems: All systems reviewed & are unremarkable except as noted in HPI and below <Anabela Duffy PA-C - Last Filed: 09/26/21 16:21> [facility] Past Medical History Medical History: Medical History (Updated 09/26/21 @ 16:11 by Anabela Duffy PA-C) COPD (chronic obstructive pulmonary disease) Oxygen dependent 3L <Anabela Duffy PA-C - Last Filed: 09/26/21 16:21> Family History Family History: Family History Father Cerebrovascular accident Mother Family history of malignant neoplasm of ovary <Anabela Duffy PA-C - Last Filed: 09/26/21 16:21> Social History Social History: Social History Years smoked: 48 Smoking status: Former smoker Tobacco type: cigarettes Second hand tobacco smoke exposure: Yes Alcohol intake: never Substance use: never Last use: 04/14/20 Gender identity (if verbalized by the patient): Female Spiritual care concerns: No <S
[2021-09-26] MEDS: ALBUTEROL SULFATE NEB 2.5 MG/0.5 ML INH 5 MG INHALATION (14:12)
[2021-09-26] MEDS: IPRATROPIUM BR 0.02% INH SOLN 0.5 MG/2.5 ML VIAL INHALATION (14:13)
[2021-09-26 14:14] LABS: Alanine Aminotransferase 22 U/L (4-35); Albumin Level 4.5 g/dL (3.5-5.1); Alkaline Phosphatase 91 U/L (38-126); Anion Gap 7 mmol/L (8-16); Aspartate Amino Transferase 32 U/L (14-36); Bilirubin,Total 0.3 mg/dL (0.2-1.3); Blood Urea Nitrogen 16 mg/dL (7-17); Carbon Dioxide 37 mmol/L (22-30); Chloride 91 mmol/L (98-107); Estimated CRCL calculation 118 ml/min; Estimated Glomerular Filt Rate > 60; Glucose 155 mg/dL (65-110); Lipase 49 U/L (23-300); Potassium 4.6 mmol/L (3.4-5.0); Sodium 135 mmol/L (137-145)
[2021-09-26] MEDS: FUROSEMIDE INJ 40 MG/4 ML VIAL IV PUSH (14:21)
[2021-09-26 14:25] LABS: Troponin I < 0.012 ng/mL (0.000-0.034)
[2021-09-26] MEDS: HYDROcodone/acetaminophen (*CRX) 7.5-325 MG TABLET 1 TAB PO (15:20)
== END 2021-09-26 17:39 | disposition home or self-care (01) ==
PROVIDERS: General Practice; Emergency Provider Family Medicine; PCP Emergency Medicine
DX: I50.9 Heart failure, unspecified (principal); J18.9 Pneumonia, unspecified organism; J44.9 Chronic obstructive pulmonary disease, unspecified; Z99.81 Dependence on supplemental oxygen; Z87.891 Personal history of nicotine dependence; R94.31 Abnormal electrocardiogram [ECG] [EKG]
CPT/HCPCS: 36415; 71046; 80053; 83690; 84484; 85025; 85610; 85730; 93005; 94640; 96374; 99284; A9270; J1940

== ENCOUNTER 2021-10-03 15:44 | Inpatient (IN) | payer MEDICARE, MEDICAID, SELFPAY ==
[2021-10-03] VITALS (19 sets, daily range): BP systolic 144–190; BP diastolic 75–137; PULSE 85–100; RESP 19–32; TEMP 36.5–37.2; O2SAT 90–100; BMI 50.5
--- NOTE | ~2021-10-03 | XR_ITS ---
EXAMINATION: XR chest 1V portable INDICATION: Increased shortness of breath TECHNIQUE: Portable AP chest at 1615 hours COMPARISON: 09/26/2021 FINDINGS: Patchy opacities persist throughout all lung zones with interval worsening. There is no ple ural effusion or pneumothorax. Cardiomegaly is noted. IMPRESSION: 1. Diffuse lung disease with interval worsening, in a pattern consistent with COVID 19 pneumonia. 2. Cardiomegaly. Reviewed, dictated and finalized at location F. TER IMPRESSION: 1. Diffuse lung disease with interval worsening, in a pattern consistent with C OVID 19 pneumonia. 2. Cardiomegaly.
--- NOTE | ~2021-10-03 | CT_ITS ---
EXAMINATION: CTA chest PE protocol DATE: 10/03/2021 17:46 INDICATION: Shortness of breath TECHNIQUE: Computed tomography angiography (CTA) of the chest was performed with 100 mL Omnipaque-350 intravenous contrast timed to evaluate the pulmonary arteries. Coronal maximum intensity projection 3D-reconstructions were created by the technologist. The dose-length product (DLP) was 1030.71 mGy-cm . Automated exposure control and iterative reconstruction technique were employed. COMPARISON: 02/26/2021 FINDINGS: The pulmonary arteries are well-opacified. Respiratory motion artifact limits the examinati on. No central pulmonary embolus is identified. There is no pleural effusion or pneumothorax. There a re patchy groundglass opacities throughout the lungs, right greater than left. Cardiomegaly is noted. There is mediastinal and bilateral hilar lymphadenopathy. A small pericardial effusion is noted. Pun ctate calcifications in otherwise normal appearing liver and spleen likely represent healed granuloma tous disease. A stable mass of the left adrenal gland is consistent with an adenoma. There is mild th oracic spondylosis. IMPRESSION: 1. Diffuse lung disease, right greater than left, in a pattern consistent with COVID 19 pneumonia. 2. No central pulmonary embolus identified, sensitivity limited by respiratory motion artifact. 3. Cardiomegaly. 4. Mediastinal and bilateral hilar lymphadenopathy, likely reactive. Reviewed, dictated and finalized at location F. ODIAGNOSTIC TECHNICIAN
--- NOTE | 2021-10-03 15:58 | ECG_ITS ---
Measurements Intervals [place] Rate: 92 P: 58 HI: 168 QRS: 50 QRSD: 93 T: 34 QT: 387 QTc: 480 Interpretive Statements SINUS RHYTHM BORDERLINE ST-T WAVE ABNORMALITY- INFERIOR LEADS BASELINE ARTIFACT- I, II, III, AVR, AVL, AVF, V1-V6 BORDERLINE ECG Electronically Signed On 10-03-2021 19:14:53 DEVELOPMENT ADMINISTRATOR by Rodrick Magallanes D.O.
[2021-10-03 16:11] LABS: Basophils Percent Auto 0.2 % (0.2-1.2); Eosinophils Absolute Auto 0.1 K/mm3 (0-0.3); Eosinophils Percent Auto 1.1 % (0-4.4); Hematocrit 42.3 % (37.0-47.0); Hemoglobin 13.3 g/dL (12.0-15.0); Immature Granulocyte Absolute 0.05 K/mm3 (0.00-0.031); Immature Granulocyte Percent A 0.5 % (0-0.5); Lymphocytes Absolute Auto 1.41 K/mm3 (0.9-3.2); Lymphocytes Percent Auto 13.1 % (18.3-44.2); Mean Corpuscular HGB Conc 31.4 g/dl (32-36); Mean Corpuscular Hemoglobin 29.6 pg (26-34); Mean Platelet Volume 10.8 fl (7.4-10.4); Monocytes Absolute Auto 0.9 K/mm3 (0.1-0.6); Monocytes Percent Auto 8.5 % (2.6-8.5); Neutrophils Absolute Auto 8.2 K/mm3 (1.3-6.7); Neutrophils Percent Auto 76.6 % (45.5-73.1); Platelet Count Result 285 k/mm3 (150-375); Red Cell Distribution Width 12.2 % (11.5-14.5); White Blood Count 10.8 K/mm3 (4.5-10.0)
[2021-10-03 16:22] LABS: Alanine Aminotransferase 21 U/L (4-35); Albumin Level 3.6 g/dL (3.5-5.1); Alkaline Phosphatase 93 U/L (38-126); Anion Gap 3 mmol/L (8-16); Aspartate Amino Transferase 23 U/L (14-36); Bilirubin,Total 0.4 mg/dL (0.2-1.3); Blood Urea Nitrogen 6 mg/dL (7-17); Carbon Dioxide 39 mmol/L (22-30); Chloride 98 mmol/L (98-107); Estimated CRCL calculation 150 ml/min; Estimated Glomerular Filt Rate > 60; Glucose 106 mg/dL (65-110); Sodium 140 mmol/L (137-145)
[2021-10-03 16:31] LABS: NT Pro B Type Natriuretic Pept 108 pg/mL (5-100)
[2021-10-03 17:12] LABS: Alveolar/Arterial O2 Gradient 111.5 mmHg; Base Excess ABG 6.9 mEq/l (+/-2.0); Fractional Inspired Oxygen 32 %; HCO3 ABG 33.4 mEq/l (22.0-26.0); Oxygen Content ABG 17.2 %vol (16.0-22.0); PCO2 ABG 54.7 mmHg (35.0-45.0); PO2 ABG 52.7 mmHg (80.0-100.0); PO2 FiO2 Ratio Arterial Blood 1.65 %; Total Hemoglobin 14.1 g/dL (12.0-18.0); pH ABG 7.403 (7.350-7.450)
[2021-10-03 17:14] LABS: Oxygen Saturation ABG 86.7 % (95.0-100.0)
[2021-10-03 17:15] LABS: Device NASAL CANNULA; Oxyhemoglobin 86.7 % THb (90.0-100.0); Site Drawn LEFT BRACHIAL
[2021-10-03 17:27] LABS: EDCOVIDSCREEN Negative (Negative)
[2021-10-03] MEDS: ALBUTEROL SULFATE NEB 2.5 MG/0.5 ML INH 5 MG INHALATION (18:00)
--- NOTE | 2021-10-03 18:02 | ED.GENADULT ---
HPI - General Adult General Chief complaint: Shortness of Breath/Dyspnea Stated complaint: SOB Time Seen by Provider: 10/03/21 16:30 Source: patient Limitations: no limitations History of Present Illness HPI narrative: Patient presents with increased shortness of breath over the last few days. Had a diagnosis of pneumonia 5 days ago, but her shortness of breath got worse over the last 2 to 3 days. History of COPD, CHF, patient on chronic 3 L nasal cannula. Last Covid vaccine February 2021. Related Data Home Medications Medication Instructions Recorded Confirmed Breo Ellipta 1 inh INHALATION DAILY 04/24/20 04/24/20 Daliresp 500 mcg PO DAILY 04/24/20 04/24/20 Excedrin Migraine 2 tab-cap BYMOUTH PRN 04/24/20 04/24/20 Spiriva with HandiHaler 1 cap INHALATION DAILY 04/24/20 04/24/20 albuterol sulfate [Ventolin HFA] 2 puff INHALATION Q6H 04/24/20 04/24/20 alprazolam 0.5 mg PO TID 04/24/20 04/24/20 baclofen 10 mg PO TID 04/24/20 04/24/20 bupropion HCl 150 mg PO DAILY 04/24/20 04/24/20 ergocalciferol (vitamin D2) 1 unit PO WEEKLY 04/24/20 04/24/20 [Vitamin D2] escitalopram oxalate 10 mg PO DAILY 04/24/20 04/24/20 furosemide 40 mg PO BID 04/24/20 04/24/20 gabapentin 100 mg PO DIRECTED 04/24/20 04/24/20 hydrocodone-acetaminophen 1 tablet PO Q6H PRN 04/24/20 04/24/20 levothyroxine 1 mcg PO DAILY 04/24/20 04/24/20 losartan 100 mg PO DAILY 04/24/20 04/24/20 metformin 500 mg PO BIDPC 04/24/20 04/24/20 omeprazole 20 mg PO BID 04/24/20 04/24/20 promethazine 25 mg PO Q6H PRN 04/24/20 04/24/20 rosuvastatin 20 mg PO DAILY 04/24/20 04/24/20 verapamil 360 mg PO HS 04/24/20 04/24/20 Allergies Allergy/AdvReac Type Severity Reaction Status Date / Time Penicillins Allergy Unknown Swelling Verified 04/24/20 16:38 Review of Systems Review of Systems: CONSTITUTIONAL: Denies fever, chills, or sweats. EYES: Denies visual changes, redness, or discharge. ENT: Denies rhinorrhea, congestion, sore throat, or otalgia. CARDIOVASCULAR: Denies chest pain, palpitations, or edema. RESPIRATORY: Denies cough or dyspnea. GASTROINTESTINAL: Denies abdominal pain, nausea, vomiting, or diarrhea. GENITOURINARY: Denies dysuria or hematuria. SKIN: Denies rash or itching. MUSCULOSKELETAL: Denies back pain, joint pain, or myalgia. NEUROLOGIC: Denies headache, numbness, or weakness. PSYCHIATRIC: Denies anxiety or depression. [facility] Past Medical History Medical History (Updated 10/03/21 @ 18:38 by Maryellen Wilson MD) COPD (chronic obstructive pulmonary disease) Oxygen dependent 3L Family History Family History Father Cerebrovascular accident Mother Family history of malignant neoplasm of ovary Social History Social History Years smoked: 48 Smoking status: Former smoker Tobacco type: cigarettes Second hand tobacco smoke exposure: Yes Alcohol intake: never Substance use: never Last use: 04/14/20 Gender identity (if verbalized by the patient): Female Spiritual care concerns: No Exam Narrative: General appearance: Well-developed, well-nourished Skin: Normal color Head: Normocephalic, nontraumatic Eyes: Clear conjunctiva ENT: Oropharynx normal, ears normal, nose normal Neck: Supple, nontender Chest and respiratory: Diminution of air entry bilaterally, few rhonchi and rales bilaterally Heart: Regular rate/rhythm Abdomen: Soft, nontender, no organomegaly, quiet bowel sounds Vascular: Normal peripheral pulses, normal capillary refill. Musculoskeletal: Normal range of motion, nontender back Neurologic: Alert and oriented ?3, Course Course Emergency Cour
[2021-10-03] MEDS: IPRATROPIUM BR 0.02% INH SOLN 0.5 MG/2.5 ML VIAL INHALATION (18:05)
[2021-10-03] MEDS: ONDANSETRON INJ 4 MG/2 ML VIAL 8 MG IV PUSH (18:35)
[2021-10-03] MEDS: methylPREDNISolone SOD SUCC 125 MG VIAL IV PUSH (19:14)
--- NOTE | 2021-10-03 21:00 | ADMGEN ---
This patient, Ronel Salinas, was admitted to 3 [facility] Room 305-02. Patient/family oriented to hospital policies and general routines including ID bracelet, bed and alarms, visiting hours, pain management, procedures, bathroom and other care routines, personal items, smoking policy, room service/diet, and visiting hours. Information on how to activate the Rapid Response Team has been discussed. Patient/Family are encouraged to report perceived risks to care and to ask questions if they do not understand what they are told or what they should do.
--- NOTE | 2021-10-03 21:07 | PM.IMHP ---
H&P: HPI History of Present Illness Date/Time: 10/03/21 21:07 Chief Complaint: Increased shortness of breath Narrative: 60-year-old female with history of chronic hypoxic hypercapnic respiratory failure since 2018, emphysema, CHF, pulmonary hypertension, morbid obesity with BMI greater than 60, diabetes mellitus and nonobstructive coronary artery disease who presented to the ER from home with increased shortness of breath for the last 2.5 days. The the patient reports that she was diagnosed with pneumonia 7 days ago and started on Levaquin on the and also received 5 days of prednisone. Despite these medications her symptoms have worsen. She reports that she has been having increased wheezing for the last 3 weeks. She has had new development of a productive cough over the last 7-10 days. Her cough is productive of white to yellowish sputum. She denies any recent ill contacts. She has not been having any known fevers or chills. She has been having generalized body aches and headache ?similar to when she has the flu.? She did have a couple of loose stools yesterday and started having some nausea with 1 episode of vomiting today will while in the ER. She denies any abdominal pain. She has had generalized decreased appetite has not been able to drink much in the way of fluids. She does report that she actually feels hungry now which is an improvement over the last 2-3 days. She noticed increased shortness of breath at night and actually increased her supplemental oxygen through her CPAP to 4 L nasal cannula. Despite doing this it did not help her shortness of breath. She did not increase her daytime insulin. She has been compliant with her home inhalers. She does have chronic diabetic neuropathy but her symptoms are unchanged. She has chronic urge urinary incontinence and wears depends at all times. She denies having any dysuria or hematuria. She denies having any chest pain but has been having progressive shortness of breath even at rest. She has not had any lower extremity edema. She does have a history of hypothyroidism and reports increased hair loss. She recently had outpatient labs including TSH and hemoglobin A1c sent to [facility]. She does not know what her results are as of yet. She is vaccinated against COVID with her last vaccine February 2021. She has also received her flu vaccine, pneumonia vaccine and shingles and pertussis vaccine. Review of Systems Review of Systems: 12 systems were reviewed with pertinent positives and negatives per HPI. Except as documented in the HPI, all other systems were reviewed and are negative. [facility] Past Medical History Medical History (Updated 10/03/21 @ 22:44 by Megha Nicole DO) Bipolar disorder Chronic respiratory failure with hypoxia and hypercapnia On chronic home O2 since 2012. With history of intubation November 2018 due to influenza associated pneumonia COPD (chronic obstructive pulmonary disease) Severe obstructive ventilatory disease noted on PFTs 02/2021 Diabetes mellitus Diabetic neuropathy Diastolic CHF Essential hypertension GERD (gastroesophageal reflux disease) With distant history of GI bleed Hyperlipidemia Hypothyroidism Kidney stones Major depressive disorder Migraines Moderate pulmonary hypertension Noted on cardiac catheterization April 2020 Normal colonoscopy (~2016) Obesity, morbid, BMI 50 or higher Obstructive sleep apnea (~2016) Uses CPAP of 13 even though her BP polysomnogram in 2016 demonstrated no evidence of obstructive sleep apnea. Oxygen dependent 3L Surgical History Surgical History (Updated 10/03/21 @ 22:46 by Megha Nicole DO) History of History of cardiac catheterization (04/2020) Mild coronary artery disease of ostial and proximal left circumflex, diffuse plaquing of the obtuse marginal 2 History of dilation and curettage History of laparoscopy History of tonsillectomy History of tubal ligation Status post cataract ex
[2021-10-04] VITALS (15 sets, daily range): BP systolic 145–177; BP diastolic 65–85; PULSE 75–100; RESP 17–28; TEMP 36.2–36.8; O2SAT 90–99
--- NOTE | 2021-10-04 | ECHO_ITS ---
Patient Info Name: Ronel Salinas Age: 60 years : 1960 Gender: Female Ht: 63 in Wt: 285 lbs BSA: 2.48 m2 HR: 98 bpm BP: 145 / 65 mmHg Heart Rhythm: Sinus Rhythm Technical Quality: Fair Exam Date: 10/04/2021 2:30 PM Exam Location: [facility] Pulmonary Patient Status: Inpatient Admit Date: 10/03/2021 Staff Ordering Physician: Garth Kelly MD Leather Cutter: Cheryl Shafer RDCS Attending Provider: Gerardo Blake MD Exam Type: CA echo doppler color flow Study Info Indications R06.02 - Shortness of breath - CHF Complete two-dimensional, color flow and Doppler transthoracic echocardiogram is performed. Summary 1. Complete two-dimensional, color flow and Doppler transthoracic echocardiogram is performed. 2. There is mild concentric increased left ventricular wall thickness. 3. Left ventricular systolic function is normal, estimated at 65-70%. 4. Right ventricular chamber dimension is normal. 5. Left atrial chamber dimension is moderately enlarged. 6. There is mild aortic valve sclerosis. 7. There is trace mitral valve regurgitation. Left Ventricle Left ventricular chamber dimension is normal. Left ventricular systolic function is normal, estimated at 65-70%. There is mild concentric increased left ventricular wall thickness. The left ventricular diastolic function is grade I diastolic dysfunction. Right Ventricle Right ventricular chamber dimension is normal. Left Atria Left atrial chamber dimension is moderately enlarged. Right Atria Right atrial chamber dimension is normal. Aortic Valve The aortic valve is trileaflet. There is mild aortic valve sclerosis. Pulmonic Valve The pulmonic valve is not well visualized. Mitral Valve The mitral valve has normal leaflets. There is trace mitral valve regurgitation. Tricuspid Valve The tricuspid valve leaflets are normal. Pericardium/Pleural The pericardium appears normal. Aorta The aortic root size at the sinus of Valsalva is normal. Left Ventricular Outflow Tract Name Value Normal LVOT 2D LVOT Diameter 2.0 cm LVOT Doppler LVOT Peak Gradient 7 mmHg LVOT Mean Gradient 4 mmHg LVOT VTI 29 cm LVOT VTI/AV VTI Ratio 1.1 LVOT Stroke Volume 93 ml LVOT CO 9.1 l/min LVOT CI 3.7 l/min/m2 Pulmonic Valve Name Value Normal RVOT Doppler RVOT Peak Gradient 5 mmHg PV Doppler PV Peak Gradient 7 mmHg Mitral Valve Name Value Normal
[2021-10-04] MEDS: methylPREDNISolone SOD SUCC 125 MG VIAL 60 MG IV PUSH ×3 (01:42→12:15)
[2021-10-04] MEDS: HYDROcodone/acetaminophen (*CRX) 5-325 MG TABLET 1 TAB PO ×2 (01:43→10:14)
[2021-10-04] MEDS: LEVOTHYROXINE SODIUM 50 MCG TABLET PO (06:56)
[2021-10-04 07:57] LABS: Hematocrit 43.1 % (37.0-47.0); Hemoglobin 13.5 g/dL (12.0-15.0); Mean Corpuscular HGB Conc 31.3 g/dl (32-36); Mean Corpuscular Hemoglobin 29.7 pg (26-34); Mean Corpuscular Volume 94.9 fl (80-100); Mean Platelet Volume 11.1 fl (7.4-10.4); Platelet Count Result 326 k/mm3 (150-375); Red Blood Count 4.54 M/mm3 (4.2-5.4); Red Cell Distribution Width 12.2 % (11.5-14.5); White Blood Count 6.8 K/mm3 (4.5-10.0)
[2021-10-04 08:12] LABS: Alanine Aminotransferase 21 U/L (4-35); Albumin Level 3.9 g/dL (3.5-5.1); Alkaline Phosphatase 98 U/L (38-126); Anion Gap 7 mmol/L (8-16); Aspartate Amino Transferase 19 U/L (14-36); Bilirubin,Total 0.3 mg/dL (0.2-1.3); Blood Urea Nitrogen 11 mg/dL (7-17); Calcium 9.2 mg/dL (8.4-10.2); Carbon Dioxide 36 mmol/L (22-30); Chloride 96 mmol/L (98-107); Estimated CRCL calculation 164 ml/min; Estimated Glomerular Filt Rate > 60; Glucose 287 mg/dL (65-110); Lactate Dehydrogenase 527 U/L (313-618); Potassium 4.5 mmol/L (3.4-5.0); Sodium 139 mmol/L (137-145)
[2021-10-04 08:25] LABS: CRP 11.1 mg/dL (<1.0)
[2021-10-04] MEDS: IPRATROPIUM BR 0.02% INH SOLN 0.5 MG/2.5 ML VIAL INHALATION (08:26)
[2021-10-04] MEDS: ALBUTEROL SULFATE NEB 2.5 MG/0.5 ML INH 5 MG INHALATION (08:26)
[2021-10-04 09:02] LABS: Glucose Point of Care 225 mg/dl (65-105)
[2021-10-04] MEDS: INSULIN ASPART (*BKC) 100 UNITS/ML SUB-Q ×3 (09:48→17:57)
[2021-10-04] MEDS: BACLOFEN 10 MG TABLET PO ×3 (09:50→17:55)
[2021-10-04] MEDS: ENOXAPARIN 40 MG/0.4 ML SYRINGE SUB-Q ×2 (09:50→21:29)
[2021-10-04] MEDS: ALPRAZolam (*CRX) 0.5 MG TABLET PO ×3 (09:50→21:26)
[2021-10-04] MEDS: ROSUVASTATIN 10 MG TABLET 20 MG PO (09:50)
[2021-10-04] MEDS: ACETAMINOPHEN/ASPIRIN/CAFFEINE 250-250-65 MG TABLET 2 TABLET BY MOUTH (09:50)
[2021-10-04] MEDS: GABAPENTIN 100 MG CAPSULE PO ×2 (09:52→17:55)
[2021-10-04] MEDS: buPROPion HCL XL (24 HR) 150 MG TABCR PO (09:52)
[2021-10-04] MEDS: LOSARTAN POTASSIUM 100 MG TABLET PO (09:52)
[2021-10-04] MEDS: ESCITALOPRAM OXALATE 10 MG TABLET PO (09:52)
[2021-10-04] MEDS: ASPIRIN 81 MG ENTERIC TABLET PO (09:52)
[2021-10-04] MEDS: ROFLUMILAST 500 MCG TABLET PO (09:52)
[2021-10-04] MEDS: PANTOPRAZOLE 40 MG TABLET PO ×2 (09:52→17:56)
[2021-10-04 12:27] LABS: SARS-CoV-2 RNA PCR Positive
[2021-10-04 12:41] LABS: Glucose Point of Care 341 mg/dl (65-105)
--- NOTE | 2021-10-04 13:15 | PM.IMPN ---
Progress Note: A&P Assessment and Plan (1) Acute on chronic respiratory failure with hypoxia and hypercapnia: Code(s): J96.21 - Acute and chronic respiratory failure with hypoxia; J96.22 - Acute and chronic respiratory failure with hypercapnia Status: Acute Assessment and Plan: Patient normally wears 3 L of oxygen at home. ABG 7.40/55/53 on 3 L. currently on 6 L. CTA of the chest was negative for PE but was consistent with COVID. Rapid COVID test was negative but the PCR was positive today. She was started on Solu-Medrol, Rocephin and azithromycin as well as nebulizer treatments. Will change her steroids to dexamethasone. Will add remdesivir. Change nebulizer treatments to inhalers. Wean oxygen as tolerated. Pulmonary consult. CRP is 11. Add baricitinib. Consider also a component of aspiration. ST to evaluate. Discussed with patient about the pros and cons of remdesivir and baricitinib. she was agreeable to start these medications. (2) Pneumonia due to COVID-19 virus: Code(s): U07.1 - COVID-19; J12.82 - Pneumonia due to coronavirus disease 2018 Status: Acute Assessment and Plan: Rapid COVID test was negative but PCR positive. Imaging consistent with COVID pneumonia. CRP 11. Ferritin and LDH are normal. As above. (3) Pneumonia: Qualifiers: Laterality: bilateral Lung location: unspecified part of lung Pneumonia type: due to unspecified organism Qualified Code(s): J18.9 - Pneumonia, unspecified organism Code(s): J18.9 - Pneumonia, unspecified organism Status: Acute Assessment and Plan: There is question the patient may have bacterial pneumonia although felt less likely. No fevers and white count essentially normal. Will stop antibiotics. (4) Acute exacerbation of chronic obstructive pulmonary disease (COPD): Code(s): J44.1 - Chronic obstructive pulmonary disease with (acute) exacerbation Status: Acute Assessment and Plan: Possible COPD exacerbation. Treatment as above. (5) Diabetes mellitus: Code(s): E11.9 - Type 2 diabetes mellitus without complications Status: Acute Assessment and Plan: The patient's blood glucose was reviewed on 10/04 Glucose values are higher related to the steroids. Continue AccuCheks covering with sliding scale. Hypoglycemia protocol available as needed. Continue to monitor (6) Diastolic CHF: Code(s): I50.30 - Unspecified diastolic (congestive) heart failure Status: Acute Assessment and Plan: Chest x-ray and CT scan more consistent with COVID pneumonia. BNP 100. Doubt CHF exacerbation. No recent echocardiogram. (7) Obstructive sleep apnea: Onset Date: ~2016 Code(s): G47.33 - Obstructive sleep apnea (adult) (pediatric) Status: Acute Assessment and Plan: Resume CPAP at night. (8) Pulmonary hypertension: Code(s): I27.20 - Pulmonary hypertension, unspecified Status: Acute Assessment and Plan: Right heart catheterization in April 2020 showing moderate pulmonary hypertension. Repeat echocardiogram today. (9) Morbid obesity: Code(s): E66.01 - Morbid (severe) obesity due to excess calories Status: Acute Assessment and Plan: BMI 50.6. Her morbid obesity is contributing to her other medical problems. Healthy lifestyle choices were encouraged. (10) DVT prophylaxis: Code(s): Z29.9 - Encounter for prophylactic measures, unspecified Status: Acute Assessment and Plan: Lovenox Additional Plan Patient has bilateral pneumonia noted on CT. CT is highly suspicious for COVID pneumonia. Patient's COVID antigen testing has been negative. COVID PCR is pending. The patient remains on isolation. The patient has been started on empiric antibiotic therapy with Rocephin and azithromycin for possible underlying bacterial pneumonia however bacterial pneumonia less likely. Th
--- NOTE | 2021-10-04 14:24 | PM.CNPUL ---
Assessment and Plan Assessment and plan (1) Pneumonia due to COVID-19 virus: Code(s): U07.1 - COVID-19; J12.82 - Pneumonia due to coronavirus disease 2019 Status: Acute Assessment and Plan: Patient tested positive for COVID-19 on and started on remdesivir, dexamethasone and baricitinib on 10/04 as she required BiPAP last night. - Remdesivir for 10 days Unless she should recover and tolerate her usual 3 L NC with rest, ambulation and while sleeping. - Dexamethasone 6 mg IV for 10 days - Prone positioning as tolerated. - Avoid any fluid overload. - Albuterol inhaler Q 4 and incruse ellipta for now, no wheezes. - Will check influenza swab. Keep saturations are 90-94% with nasal cannula up to 15 L, if fails then Airvo high flow nasal cannula and if fails then BiPAP and if fails then intubation during day. I discussed code status with patient and she does wish to be intubated if needed. At night she should wear BiPAP given her long history of obstructive sleep apnea and her blood gas of 7.40-50 5-53 on 3 L nasal cannula demonstrating some chronic hyper Sineff Walker be a. (2) Acute respiratory failure with hypoxia: Code(s): J96.01 - Acute respiratory failure with hypoxia Status: Acute Assessment and Plan: Etiology of hypoxic respiratory failure is likely COVID pneumonia. Echo pending 10/03 15:30 12 L NRB sats 98% 10/03 16:45 3 L NC sats 96%. ABG7.40/55/53 10/03 17:30 6L NC sats 94% 00:30 BiPAP 75% sats 97% 10/04 06:45 6 L NC sats 93% 10/04 12:00 6 L NC sats 91% Keep saturations are 90-94% as above Will follow with you. (3) Obstructive sleep apnea: Onset Date: ~2016 Code(s): G47.33 - Obstructive sleep apnea (adult) (pediatric) Status: Acute Assessment and Plan: Patient tells me she has obstructive sleep apnea and uses CPAP 13 at night with 3 L bleed in. I will attempt to obtain a download from her [employer], [employer] At this time I will use BiPAP rate of 16, pressures 14/8, inspiratory time 1.0 with 50% FiO2 when sleeping with titration of FiO2 to maintain sats greater than 90. Patient told me that the BiPAP pressures with a fullface mask felt comfortable and she would be able to sleep with the settings. History of Present Illness History of Present Illness Consult date: 10/04/21 Requesting physician: Garth Kelly MD Reason for consult: hypoxemia and other (COVID pneumonia) Chief complaint: Pneumonia,COPD exacerbation Narrative: this is a new pulmonary consult for COVID pneumonia with hypoxemic respiratory failure 60-year-old woman with a history of chronic hypoxemic and hypercarbic respiratory failure, COPD with severe obstruction on PFTs 02/26/21 (FEV1 0.93 L = 39% predicted with airtrapping), and mild apical predominant centrilobular and paraseptal emphysema on CT scan from 03/27/2020, Obstructive sleep apnea on CPAP, congestive heart failure, pulmonary hypertension, morbid obesity, diabetes who presented to the ER with 3 days worsening shortness of breath. Patient is at been having wheezing for 3 we weeks, a cough for 7-10 days and was treated with Levaquin and a 5 day prednisone taper. patient presented to the emergency department with a white blood cell count of 10.8, BNP 108, chest x-ray with diffuse interstitial infiltrates and a CT angiogram of the chest that was negative for PE but consistent with COVID pneumonia. Patient is COVID RT PCR test is positive and she was started on REM de severe, dexamethasone and baracitinib on 10/04. Patient developed worsening hypoxemia and was placed on BiPAP last night and I was consulted. 10/04 Patient states that overall she is improved from yesterday. Patient states that her breathing is better and she is able to eat and drink today which she could not do yesterday. Patient still has some shortness of breath. Patient is currently on 6 L nasal cannula oxygen with saturations 91% and has b
--- NOTE | 2021-10-04 15:26 | PCSTNOTE ---
Please refer to the Bedside Swallow Evaluation in the EMR. Please note, silent aspiration cannot be ruled out at bedside.
[2021-10-04] MEDS: BARICITINIB 2 MG TABLET 4 MG PO (15:54)
[2021-10-04] MEDS: guaiFENesin 12 HR 600 MG TABCR PO ×2 (15:57→21:26)
[2021-10-04 16:47] LABS: Prothrombin Time 13.5 Seconds (11.1-14.7)
[2021-10-04 17:47] LABS: Glucose Point of Care 370 mg/dl (65-105)
[2021-10-04] MEDS: REMDESIVIR 200 MG/NS 250 ML 200 MG/250 ML BAG 250 MG IVPB (18:17)
[2021-10-04] MEDS: ALBUTEROL SULFATE (*SP) AEROSOL 1 PUFF 2 PUFF INHALATION ×2 (18:17→20:28)
[2021-10-04] MEDS: FLUTICASONE/SALMETEROL 230-21 MCG INHALER 1 PUFF 2 PUFF INHALATION (20:28)
[2021-10-04 21:01] LABS: Glucose Point of Care 290 mg/dl (65-105)
[2021-10-04] MEDS: INSULIN GLARGINE (*BKC) 100 UNITS/ML 10 UNITS SUB-Q (21:22)
[2021-10-04] MEDS: GABAPENTIN 300 MG CAPSULE PO (21:27)
[2021-10-04] MEDS: VERAPAMIL HCL 180 MG TABLET ER 360 MG PO (21:27)
[2021-10-05] VITALS (7 sets, daily range): BP systolic 121–164; BP diastolic 64–86; PULSE 61–93; RESP 18–20; TEMP 36.1–36.6; O2SAT 90–95
[2021-10-05] MEDS: ALBUTEROL SULFATE (*SP) AEROSOL 1 PUFF 2 PUFF INHALATION (00:16)
[2021-10-05] MEDS: LEVOTHYROXINE SODIUM 50 MCG TABLET PO (06:45)
[2021-10-05 06:54] LABS: Basophils Percent Auto 0.2 % (0.2-1.2); Hemoglobin 12.9 g/dL (12.0-15.0); Immature Granulocyte Absolute 0.22 K/mm3 (0.00-0.031); Immature Granulocyte Percent A 1.3 % (0-0.5); Lymphocytes Absolute Auto 1.28 K/mm3 (0.9-3.2); Lymphocytes Percent Auto 7.6 % (18.3-44.2); Mean Corpuscular HGB Conc 31.5 g/dl (32-36); Mean Corpuscular Hemoglobin 29.7 pg (26-34); Mean Corpuscular Volume 94.3 fl (80-100); Mean Platelet Volume 11.2 fl (7.4-10.4); Monocytes Percent Auto 5.7 % (2.6-8.5); Neutrophils Absolute Auto 14.5 K/mm3 (1.3-6.7); Neutrophils Percent Auto 85.2 % (45.5-73.1); Platelet Count Result 401 k/mm3 (150-375); Red Blood Count 4.35 M/mm3 (4.2-5.4); Red Cell Distribution Width 11.9 % (11.5-14.5)
[2021-10-05 07:00] LABS: INR 1.2; Prothrombin Time 14.7 Seconds (11.1-14.7)
[2021-10-05 07:11] LABS: Alanine Aminotransferase 26 U/L (4-35); Albumin Level 3.5 g/dL (3.5-5.1); Alkaline Phosphatase 86 U/L (38-126); Aspartate Amino Transferase 23 U/L (14-36); Bilirubin,Total 0.2 mg/dL (0.2-1.3); Blood Urea Nitrogen 16 mg/dL (7-17); CRP 4.2 mg/dL (<1.0); Calcium 9.2 mg/dL (8.4-10.2); Carbon Dioxide > 40 mmol/L (22-30); Chloride 100 mmol/L (98-107); Estimated CRCL calculation 134 ml/min; Estimated Glomerular Filt Rate > 60; Glucose 231 mg/dL (65-110); Potassium 4.6 mmol/L (3.4-5.0); Sodium 139 mmol/L (137-145)
[2021-10-05 07:52] LABS: Glucose Point of Care 199 mg/dl (65-105)
--- NOTE | 2021-10-05 10:40 | PM.PNPUL ---
Progress Note: A&P Assessment and Plan (1) Pneumonia due to COVID-19 virus: Code(s): U07.1 - COVID-19; J12.82 - Pneumonia due to coronavirus disease 2019 Status: Acute Assessment and Plan: Patient tested positive for COVID-19 on and started on remdesivir, dexamethasone and baricitinib on 10/04 as she required BiPAP last night. - Remdesivir for 10 days Unless she should recover and tolerate her usual 3 L NC with rest, ambulation and while sleeping. - Dexamethasone 6 mg IV for 10 days - Prone positioning as tolerated. - Avoid any fluid overload. - Albuterol inhaler Q 4 and incruse ellipta for now, no wheezes. - Will check influenza swab. Keep saturations are 90-94% with nasal cannula up to 15 L, if fails then Airvo high flow nasal cannula and if fails then BiPAP and if fails then intubation during day. I discussed code status with patient and she does wish to be intubated if needed. At night she should wear BiPAP given her long history of obstructive sleep apnea and her blood gas of 7.40-50 5-53 on 3 L nasal cannula demonstrating some chronic hypercarbia. 10/05 patient tells me that her breathing is better, her cough is better her fatigue is the same. Patient wore no BiPAP last night and remains on 6 L nasal cannula saturations 95%. Prior to discharge patient should have formal home O2 assessment, An overnight oximetry and a chest x-ray to serve as a new baseline. Discussed with Dr. Kelly, we will sign off, call with questions. (2) Acute respiratory failure with hypoxia: Code(s): J96.01 - Acute respiratory failure with hypoxia Status: Acute Assessment and Plan: Etiology of hypoxic respiratory failure is likely COVID pneumonia. Echo pending 10/03 15:30 12 L NRB sats 98% 10/03 16:45 3 L NC sats 96%. ABG7.40/55/53 10/03 17:30 6L NC sats 94% : 00:30 BiPAP 75% sats 97% 10/04 06:45 6 L NC sats 93% 10/04 12:00 6 L NC sats 91% 10/04 20:00 6 L NC sats 92% 10/05 08:00 6 L NC sats 91% Keep saturations are 90-94% as above (3) Obstructive sleep apnea: Onset Date: ~2016 Code(s): G47.33 - Obstructive sleep apnea (adult) (pediatric) Status: Acute Assessment and Plan: 10/04 Patient tells me she has obstructive sleep apnea and uses CPAP 13 at night with 3 L bleed in. I will attempt to obtain a download from her [employer], [place]. patient tells me she is unable to bring her home machine to the hospital. 10/05 At this time I will use BiPAP rate of 16, pressures 14/8, inspiratory time 1.0 with 50% FiO2 when sleeping with titration of FiO2 to maintain sats greater than 90. Patient told me that the BiPAP pressures with a fullface mask felt comfortable and she would be able to sleep with the settings. Subjective Date/time seen: 10/05/21 10:41 Interval history: 10/04/21 Requesting physician: Garth Kelly MD Reason for consult: hypoxemia and other (COVID pneumonia) Chief complaint: Pneumonia,COPD exacerbation Narrative: this is a new pulmonary consult for COVID pneumonia with hypoxemic respiratory failure 60-year-old woman with a history of chronic hypoxemic and hypercarbic respiratory failure, COPD with severe obstruction on PFTs 02/26/21 (FEV1 0.93 L = 39% predicted with airtrapping), and mild apical predominant centrilobular and paraseptal emphysema on CT scan from 03/27/2020, Obstructive sleep apnea on CPAP, congestive heart failure, pulmonary hypertension, morbid obesity, diabetes who presented to the ER with 3 days worsening shortness of breath. Patient is at been having wheezing for 3 we weeks, a cough for 7-10 days and was treated with Levaquin and a 5 day prednisone taper. patient presented to the emergency department with a white blood cell count of 10.8, BNP 108, chest x-ray with diffuse interstitial infiltrates and a CT angiogram of the chest that was negative for PE but consistent with COVID pneumonia. Patient is COVID RT PCR test
[2021-10-05] MEDS: ALBUTEROL SULFATE (*SP) INHALER 2 PUFF INHALATION ×3 (11:27→19:20)
[2021-10-05] MEDS: ALPRAZolam (*CRX) 0.5 MG TABLET PO ×3 (11:38→16:55)
[2021-10-05] MEDS: ENOXAPARIN 40 MG/0.4 ML SYRINGE SUB-Q ×2 (11:38→21:29)
[2021-10-05] MEDS: ESCITALOPRAM OXALATE 10 MG TABLET PO (11:38)
[2021-10-05] MEDS: BARICITINIB 2 MG TABLET 4 MG PO (11:38)
[2021-10-05] MEDS: ASPIRIN 81 MG ENTERIC TABLET PO (11:39)
[2021-10-05] MEDS: ROSUVASTATIN 10 MG TABLET 20 MG PO (11:39)
[2021-10-05] MEDS: PANTOPRAZOLE 40 MG TABLET PO ×2 (11:39→16:53)
[2021-10-05] MEDS: BACLOFEN 10 MG TABLET PO ×3 (11:39→16:54)
[2021-10-05] MEDS: buPROPion HCL XL (24 HR) 150 MG TABCR PO (11:40)
[2021-10-05] MEDS: LOSARTAN POTASSIUM 100 MG TABLET PO (11:40)
[2021-10-05] MEDS: GABAPENTIN 100 MG CAPSULE PO ×2 (11:40→16:54)
[2021-10-05] MEDS: ROFLUMILAST 500 MCG TABLET PO (11:40)
[2021-10-05 13:01] LABS: Glucose Point of Care 233 mg/dl (65-105)
[2021-10-05] MEDS: INSULIN ASPART (*BKC) 100 UNITS/ML SUB-Q ×2 (13:37→16:53)
[2021-10-05] MEDS: guaiFENesin 12 HR 600 MG TABCR PO ×2 (13:38→21:28)
[2021-10-05 16:16] LABS: Glucose Point of Care 285 mg/dl (65-105)
--- NOTE | 2021-10-05 17:03 | PM.IMPN ---
Progress Note: A&P Assessment and Plan (1) Acute on chronic respiratory failure with hypoxia and hypercapnia: Code(s): J96.21 - Acute and chronic respiratory failure with hypoxia; J96.22 - Acute and chronic respiratory failure with hypercapnia Status: Acute Assessment and Plan: Patient normally wears 3 L of oxygen at home. ABG 7.40/55/53 on 3 L. currently on 6 L. CTA of the chest was negative for PE but was consistent with COVID. Rapid COVID test was negative but the PCR was positive today. She was started on Solu-Medrol, Rocephin and azithromycin as well as nebulizer treatments. Steroids changed to dexamethasone and abx stopped. Remdesivir and baricitinib added. Changed nebulizer treatments to inhalers. CRP better at 4.2. Elevated WBC from the steroids. ST evaluation okay. Pulmonary consult appreciated. Wean oxygen as tolerated. (2) Pneumonia due to COVID-19 virus: Code(s): U07.1 - COVID-19; J12.82 - Pneumonia due to coronavirus disease 2019 Status: Acute Assessment and Plan: Rapid COVID test was negative but PCR positive. Imaging consistent with COVID pneumonia. CRP down to 4.2. As above. (3) Pneumonia: Qualifiers: Laterality: bilateral Lung location: unspecified part of lung Pneumonia type: due to unspecified organism Qualified Code(s): J18.9 - Pneumonia, unspecified organism Code(s): J18.9 - Pneumonia, unspecified organism Status: Acute Assessment and Plan: There is question the patient may have bacterial pneumonia although felt less likely. No fevers and white count essentially normal. Antibiotics stopped. (4) Acute exacerbation of chronic obstructive pulmonary disease (COPD): Code(s): J44.1 - Chronic obstructive pulmonary disease with (acute) exacerbation Status: Acute Assessment and Plan: Possible COPD exacerbation. Treatment as above. (5) Diabetes mellitus: Code(s): E11.9 - Type 2 diabetes mellitus without complications Status: Acute Assessment and Plan: The patient's blood glucose was reviewed on 10/05 Glucose values are still elevated. Continue AccuCheks covering with sliding scale. Hypoglycemia protocol available as needed. Advance lantus (6) Diastolic CHF: Code(s): I50.30 - Unspecified diastolic (congestive) heart failure Status: Acute Assessment and Plan: Chest x-ray and CT scan more consistent with COVID pneumonia. BNP 100. Repeat echo 10/04 showing EF 65-70% with grade I diastolic dysfunction; the RVSP is normal. Doubt CHF exacerbation. (7) Obstructive sleep apnea: Onset Date: ~2016 Code(s): G47.33 - Obstructive sleep apnea (adult) (pediatric) Status: Acute Assessment and Plan: Tolerating CPAP at night. (8) Pulmonary hypertension: Code(s): I27.20 - Pulmonary hypertension, unspecified Status: Acute Assessment and Plan: Right heart catheterization in April 2020 showing moderate pulmonary hypertension. Echo as mentioned above (9) Morbid obesity: Code(s): E66.01 - Morbid (severe) obesity due to excess calories Status: Acute Assessment and Plan: BMI 50.6. Her morbid obesity is contributing to her other medical problems. Healthy lifestyle choices were encouraged. (10) DVT prophylaxis: Code(s): Z29.9 - Encounter for prophylactic measures, unspecified Status: Acute Assessment and Plan: Lovenox Subjective Date/time seen: 10/05/21 17:03 Interval history: 60yo female with chronic resp failure (3L), COPD and CHF here for cough and shortness of breath and found to have COVID. She is vaccinated against COVID with her last vaccine February 2021. She has also received her flu vaccine. No CP. SOB better. Slight lightheadedness with standing but better since admission. Exam Narrative: AF 97.2 145/75 64 20 93% 6L Gen - NARD siting up in bed Chest - distatn BS
[2021-10-05 21:15] LABS: Glucose Point of Care 315 mg/dl (65-105)
[2021-10-05] MEDS: GABAPENTIN 300 MG CAPSULE PO (21:28)
[2021-10-05] MEDS: VERAPAMIL HCL 180 MG TABLET ER 360 MG PO (21:28)
[2021-10-05] MEDS: REMDESIVIR 100 MG/NS 250 ML 100 MG/250 ML BAG 250 MG IVPB (21:28)
[2021-10-05] MEDS: INSULIN GLARGINE (*BKC) 100 UNITS/ML 14 UNITS SUB-Q (21:29)
[2021-10-06] VITALS (9 sets, daily range): BP systolic 116–176; BP diastolic 67–86; PULSE 68–97; RESP 18–20; TEMP 36.4–37.1; O2SAT 92–98
[2021-10-06] MEDS: LEVOTHYROXINE SODIUM 50 MCG TABLET PO (05:40)
[2021-10-06] MEDS: HYDROcodone/acetaminophen (*CRX) 5-325 MG TABLET 1 TAB PO ×2 (06:57→17:11)
[2021-10-06 07:08] LABS: Basophils Percent Auto 0.1 % (0.2-1.2); Hematocrit 41.9 % (37.0-47.0); Hemoglobin 12.8 g/dL (12.0-15.0); Immature Granulocyte Absolute 0.16 K/mm3 (0.00-0.031); Lymphocytes Absolute Auto 0.99 K/mm3 (0.9-3.2); Lymphocytes Percent Auto 6.1 % (18.3-44.2); Mean Corpuscular HGB Conc 30.5 g/dl (32-36); Mean Corpuscular Hemoglobin 29.2 pg (26-34); Mean Corpuscular Volume 95.4 fl (80-100); Mean Platelet Volume 10.6 fl (7.4-10.4); Monocytes Percent Auto 6.3 % (2.6-8.5); Neutrophils Percent Auto 86.5 % (45.5-73.1); Platelet Count Result 428 k/mm3 (150-375); Red Blood Count 4.39 M/mm3 (4.2-5.4); Red Cell Distribution Width 11.8 % (11.5-14.5); White Blood Count 16.2 K/mm3 (4.5-10.0)
[2021-10-06 07:16] LABS: INR 1.1; Prothrombin Time 13.9 Seconds (11.1-14.7)
[2021-10-06 07:35] LABS: Alanine Aminotransferase 27 U/L (4-35); Albumin Level 3.6 g/dL (3.5-5.1); Anion Gap 6 mmol/L (8-16); Aspartate Amino Transferase 22 U/L (14-36); Blood Urea Nitrogen 19 mg/dL (7-17); CRP 1.9 mg/dL (<1.0); Calcium 8.8 mg/dL (8.4-10.2); Carbon Dioxide 36 mmol/L (22-30); Chloride 96 mmol/L (98-107); Estimated CRCL calculation 114 ml/min; Estimated Glomerular Filt Rate > 60; Glucose 302 mg/dL (65-110); Lactate Dehydrogenase 455 U/L (313-618); Phosphorus 3.4 mg/dL (2.5-4.5); Potassium 4.1 mmol/L (3.4-5.0); Sodium 138 mmol/L (137-145)
[2021-10-06 09:00] LABS: Glucose Point of Care 222 mg/dl (65-105)
[2021-10-06] MEDS: ALBUTEROL SULFATE (*SP) INHALER 2 PUFF INHALATION ×2 (09:33→20:02)
[2021-10-06] MEDS: guaiFENesin 12 HR 600 MG TABCR PO ×2 (09:42→20:44)
[2021-10-06] MEDS: ASPIRIN 81 MG ENTERIC TABLET PO (09:42)
[2021-10-06] MEDS: LOSARTAN POTASSIUM 100 MG TABLET PO (09:42)
[2021-10-06] MEDS: GABAPENTIN 100 MG CAPSULE PO ×2 (09:42→17:12)
[2021-10-06] MEDS: ROSUVASTATIN 10 MG TABLET 20 MG PO (09:42)
[2021-10-06] MEDS: PANTOPRAZOLE 40 MG TABLET PO ×2 (09:42→17:11)
[2021-10-06] MEDS: ESCITALOPRAM OXALATE 10 MG TABLET PO (09:42)
[2021-10-06] MEDS: BARICITINIB 2 MG TABLET 4 MG PO (09:43)
[2021-10-06] MEDS: buPROPion HCL XL (24 HR) 150 MG TABCR PO (09:43)
[2021-10-06] MEDS: ROFLUMILAST 500 MCG TABLET PO (09:43)
[2021-10-06] MEDS: BACLOFEN 10 MG TABLET PO ×3 (09:43→17:11)
[2021-10-06] MEDS: ENOXAPARIN 40 MG/0.4 ML SYRINGE SUB-Q (09:44)
[2021-10-06] MEDS: INSULIN ASPART (*BKC) 100 UNITS/ML SUB-Q ×3 (09:44→17:12)
[2021-10-06] MEDS: ACETAMINOPHEN/ASPIRIN/CAFFEINE 250-250-65 MG TABLET 2 TABLET BY MOUTH (09:45)
[2021-10-06] MEDS: ALPRAZolam (*CRX) 0.5 MG TABLET PO ×3 (09:51→17:11)
--- NOTE | 2021-10-06 10:35 | PM.IMPN ---
Progress Note: A&P Assessment and Plan (1) Acute on chronic respiratory failure with hypoxia and hypercapnia: Code(s): J96.21 - Acute and chronic respiratory failure with hypoxia; J96.22 - Acute and chronic respiratory failure with hypercapnia Status: Acute Assessment and Plan: Patient normally wears 3 L of oxygen at home. ABG 7.40/55/53 on 3 L. CTA of the chest was negative for PE but was consistent with COVID. Rapid COVID test was negative but the PCR was positive. She was started on Solu-Medrol, Rocephin and azithromycin as well as nebulizer treatments. Steroids changed to dexamethasone and abx stopped once COVID test returned postive. Remdesivir and baricitinib added. Changed nebulizer treatments to inhalers. CRP better at 1.9 and LDH normal. Elevated WBC from the steroids. ST evaluation okay. Pulmonary consult appreciated. Wean oxygen as tolerated. (2) Pneumonia due to COVID-19 virus: Code(s): U07.1 - COVID-19; J12.82 - Pneumonia due to coronavirus disease 2018 Status: Acute Assessment and Plan: Rapid COVID test was negative but PCR positive. Imaging consistent with COVID pneumonia. CRP down to 1.9 and LDH remains normal. As above. (3) Pneumonia: Qualifiers: Laterality: bilateral Lung location: unspecified part of lung Pneumonia type: due to unspecified organism Qualified Code(s): J18.9 - Pneumonia, unspecified organism Code(s): J18.9 - Pneumonia, unspecified organism Status: Acute Assessment and Plan: There is question the patient may have bacterial pneumonia although felt less likely. No fevers and white count was essentially normal (higher now due to steroids). Antibiotics stopped. (4) Acute exacerbation of chronic obstructive pulmonary disease (COPD): Code(s): J44.1 - Chronic obstructive pulmonary disease with (acute) exacerbation Status: Acute Assessment and Plan: Possible COPD exacerbation. Treatment as above. (5) Diabetes mellitus: Code(s): E11.9 - Type 2 diabetes mellitus without complications Status: Acute Assessment and Plan: The patient's blood glucose was reviewed on 10/06 Glucose values are still elevated. Continue AccuCheks covering with sliding scale. Hypoglycemia protocol available as needed. Advance lantus again (6) Diastolic CHF: Code(s): I50.30 - Unspecified diastolic (congestive) heart failure Status: Acute Assessment and Plan: Chest x-ray and CT scan more consistent with COVID pneumonia. BNP 100. Repeat echo 10/04 showing EF 65-70% with grade I diastolic dysfunction; the RVSP is normal. Doubt CHF exacerbation. (7) Obstructive sleep apnea: Onset Date: ~2016 Code(s): G47.33 - Obstructive sleep apnea (adult) (pediatric) Status: Acute Assessment and Plan: Refusing noninvasive ventilation. (8) Pulmonary hypertension: Code(s): I27.20 - Pulmonary hypertension, unspecified Status: Acute Assessment and Plan: Right heart catheterization in April 2020 showing moderate pulmonary hypertension. Echo as mentioned above (9) Morbid obesity: Code(s): E66.01 - Morbid (severe) obesity due to excess calories Status: Acute Assessment and Plan: BMI 50.6. Her morbid obesity is contributing to her other medical problems. Healthy lifestyle choices were encouraged. (10) DVT prophylaxis: Code(s): Z29.9 - Encounter for prophylactic measures, unspecified Status: Acute Assessment and Plan: Lovenox but decrease to daily Subjective Date/time seen: 10/06/21 10:35 Interval history: 60yo female with chronic resp failure (3L), COPD and CHF here for cough and shortness of breath and found to have COVID. She is vaccinated against COVID with her last vaccine February 2021. She has also received her flu vaccine. No chest pain. Shortness of breath is better. She denies nausea or vom
[2021-10-06 13:44] LABS: Glucose Point of Care 234 mg/dl (65-105)
[2021-10-06 17:14] LABS: Glucose Point of Care 311 mg/dl (65-105)
--- NOTE | 2021-10-06 18:04 | PCRCNOTE ---
Window of time for administration has passed. See next scheduled administration.
[2021-10-06] MEDS: GABAPENTIN 300 MG CAPSULE PO (20:45)
[2021-10-06] MEDS: VERAPAMIL HCL 180 MG TABLET ER 360 MG PO (20:45)
[2021-10-06] MEDS: INSULIN GLARGINE (*BKC) 100 UNITS/ML 20 UNITS SUB-Q (20:46)
[2021-10-06] MEDS: INSULIN ASPART (*BKC) 100 UNITS/ML 10 UNITS SUB-Q (21:27)
[2021-10-06 21:43] LABS: Glucose Point of Care 393 mg/dl (65-105)
[2021-10-06] MEDS: REMDESIVIR 100 MG/NS 250 ML 100 MG/250 ML BAG 250 MG IVPB (22:43)
[2021-10-07] VITALS (9 sets, daily range): BP systolic 164–186; BP diastolic 79–94; PULSE 79–100; RESP 18–20; TEMP 36.2–36.7; O2SAT 93–96
[2021-10-07 00:15] LABS: Glucose Point of Care 311 mg/dl (65-105)
[2021-10-07] MEDS: LEVOTHYROXINE SODIUM 50 MCG TABLET PO (05:42)
[2021-10-07] MEDS: hydrALAZINE HCL 20 MG/ML VIAL 10 MG IV PUSH ×2 (05:43→21:03)
[2021-10-07 08:05] LABS: Basophils Percent Auto 0.2 % (0.2-1.2); Hematocrit 43.2 % (37.0-47.0); Hemoglobin 13.6 g/dL (12.0-15.0); Immature Granulocyte Absolute 0.08 K/mm3 (0.00-0.031); Immature Granulocyte Percent A 0.7 % (0-0.5); Lymphocytes Absolute Auto 1.07 K/mm3 (0.9-3.2); Lymphocytes Percent Auto 9.2 % (18.3-44.2); Mean Corpuscular HGB Conc 31.5 g/dl (32-36); Mean Corpuscular Hemoglobin 29.5 pg (26-34); Mean Corpuscular Volume 93.7 fl (80-100); Mean Platelet Volume 10.7 fl (7.4-10.4); Monocytes Absolute Auto 1.1 K/mm3 (0.1-0.6); Neutrophils Absolute Auto 9.4 K/mm3 (1.3-6.7); Neutrophils Percent Auto 80.9 % (45.5-73.1); Platelet Count Result 445 k/mm3 (150-375); Red Blood Count 4.61 M/mm3 (4.2-5.4); Red Cell Distribution Width 11.8 % (11.5-14.5); White Blood Count 11.6 K/mm3 (4.5-10.0)
[2021-10-07 08:07] LABS: Alanine Aminotransferase 28 U/L (4-35); Anion Gap 7 mmol/L (8-16); Aspartate Amino Transferase 21 U/L (14-36); Blood Urea Nitrogen 19 mg/dL (7-17); Calcium 8.6 mg/dL (8.4-10.2); Carbon Dioxide 38 mmol/L (22-30); Chloride 93 mmol/L (98-107); Estimated CRCL calculation 134 ml/min; Estimated Glomerular Filt Rate > 60; Glucose 202 mg/dL (65-110); Potassium 3.9 mmol/L (3.4-5.0); Sodium 138 mmol/L (137-145)
[2021-10-07 08:14] LABS: Glucose Point of Care 211 mg/dl (65-105)
[2021-10-07] MEDS: PANTOPRAZOLE 40 MG TABLET PO ×2 (08:25→17:36)
[2021-10-07] MEDS: buPROPion HCL XL (24 HR) 150 MG TABCR PO (08:25)
[2021-10-07] MEDS: LOSARTAN POTASSIUM 100 MG TABLET PO (08:25)
[2021-10-07] MEDS: BACLOFEN 10 MG TABLET PO ×3 (08:25→17:36)
[2021-10-07] MEDS: ASPIRIN 81 MG ENTERIC TABLET PO (08:25)
[2021-10-07] MEDS: guaiFENesin 12 HR 600 MG TABCR PO ×2 (08:25→20:07)
[2021-10-07] MEDS: BARICITINIB 2 MG TABLET 4 MG PO (08:25)
[2021-10-07] MEDS: GABAPENTIN 100 MG CAPSULE PO ×2 (08:25→17:36)
[2021-10-07] MEDS: ESCITALOPRAM OXALATE 10 MG TABLET PO (08:25)
[2021-10-07] MEDS: ROFLUMILAST 500 MCG TABLET PO (08:25)
[2021-10-07] MEDS: ENOXAPARIN 40 MG/0.4 ML SYRINGE SUB-Q (08:26)
[2021-10-07] MEDS: ROSUVASTATIN 10 MG TABLET 20 MG PO (08:26)
[2021-10-07] MEDS: INSULIN ASPART (*BKC) 100 UNITS/ML SUB-Q ×2 (08:28→17:34)
[2021-10-07] MEDS: ALPRAZolam (*CRX) 0.5 MG TABLET PO ×3 (08:28→17:37)
[2021-10-07] MEDS: HYDROcodone/acetaminophen (*CRX) 5-325 MG TABLET 1 TAB PO ×2 (08:41→17:43)
[2021-10-07 08:50] LABS: Prothrombin Time 13.1 Seconds (11.1-14.7)
[2021-10-07] MEDS: ALBUTEROL SULFATE (*SP) INHALER 2 PUFF INHALATION ×2 (10:23→13:45)
--- NOTE | 2021-10-07 11:43 | PM.IMPN ---
Progress Note: A&P Assessment and Plan (1) Acute on chronic respiratory failure with hypoxia and hypercapnia: Code(s): J96.21 - Acute and chronic respiratory failure with hypoxia; J96.22 - Acute and chronic respiratory failure with hypercapnia Status: Acute Assessment and Plan: Patient normally wears 3 L of oxygen at home. ABG 7.40/55/53 on 3 L. CTA of the chest was negative for PE but was consistent with COVID. Rapid COVID test was negative but the PCR was positive. She was started on Solu-Medrol, Rocephin and azithromycin as well as nebulizer treatments. Steroids changed to dexamethasone and abx stopped once COVID test returned postive. Remdesivir and baricitinib added. Changed nebulizer treatments to inhalers. CRP better at 1.9 and LDH normal. Elevated WBC from the steroids. ST evaluation okay. Pulmonary consult appreciated. Wean oxygen as tolerated. (2) Pneumonia due to COVID-19 virus: Code(s): U07.1 - COVID-19; J12.82 - Pneumonia due to coronavirus disease 2018 Status: Acute Assessment and Plan: Rapid COVID test was negative but PCR positive. Imaging consistent with COVID pneumonia. CRP down to 1.9 and LDH remains normal. As above. (3) Pneumonia: Qualifiers: Laterality: bilateral Lung location: unspecified part of lung Pneumonia type: due to unspecified organism Qualified Code(s): J18.9 - Pneumonia, unspecified organism Code(s): J18.9 - Pneumonia, unspecified organism Status: Acute Assessment and Plan: There is question the patient may have bacterial pneumonia although felt less likely. No fevers and white count was essentially normal (higher now due to steroids). Antibiotics stopped. (4) Acute exacerbation of chronic obstructive pulmonary disease (COPD): Code(s): J44.1 - Chronic obstructive pulmonary disease with (acute) exacerbation Status: Acute Assessment and Plan: Possible COPD exacerbation. Treatment as above. (5) Diabetes mellitus: Code(s): E11.9 - Type 2 diabetes mellitus without complications Status: Acute Assessment and Plan: The patient's blood glucose was reviewed on 10/06 Glucose values are still elevated. Continue AccuCheks covering with sliding scale. Hypoglycemia protocol available as needed. Advance lantus again (6) Diastolic CHF: Code(s): I50.30 - Unspecified diastolic (congestive) heart failure Status: Acute Assessment and Plan: Chest x-ray and CT scan more consistent with COVID pneumonia. BNP 100. Repeat echo 10/04 showing EF 65-70% with grade I diastolic dysfunction; the RVSP is normal. Doubt CHF exacerbation. (7) Obstructive sleep apnea: Onset Date: ~2016 Code(s): G47.33 - Obstructive sleep apnea (adult) (pediatric) Status: Acute Assessment and Plan: Refusing noninvasive ventilation. (8) Pulmonary hypertension: Code(s): I27.20 - Pulmonary hypertension, unspecified Status: Acute Assessment and Plan: Right heart catheterization in April 2020 showing moderate pulmonary hypertension. Echo as mentioned above (9) Morbid obesity: Code(s): E66.01 - Morbid (severe) obesity due to excess calories Status: Acute Assessment and Plan: BMI 50.6. Her morbid obesity is contributing to her other medical problems. Healthy lifestyle choices were encouraged. (10) DVT prophylaxis: Code(s): Z29.9 - Encounter for prophylactic measures, unspecified Status: Acute Assessment and Plan: Lovenox but decrease to daily Additional Plan October 07, 2021 Patient is gradually improving. Breathing is better. Plan is to continue current treatment. Monitor oxygen. Weaned off oxygen as tolerated. Will continue with remdesivir and steroids. Last dose of remdesivir is on 10/08/2021 Subjective Date/time seen: 10/07/21 11:43 Patient was seen during the morning rounds today. 5
[2021-10-07 12:22] LABS: Glucose Point of Care 221 mg/dl (65-105)
[2021-10-07 16:45] LABS: Glucose Point of Care 342 mg/dl (65-105)
[2021-10-07] MEDS: INSULIN GLARGINE (*BKC) 100 UNITS/ML 20 UNITS SUB-Q (20:06)
[2021-10-07] MEDS: VERAPAMIL HCL 180 MG TABLET ER 360 MG PO (20:07)
[2021-10-07] MEDS: GABAPENTIN 300 MG CAPSULE PO (20:09)
[2021-10-07 20:31] LABS: Glucose Point of Care 306 mg/dl (65-105)
[2021-10-07] MEDS: REMDESIVIR 100 MG/NS 250 ML 100 MG/250 ML BAG 250 MG IVPB (21:03)
[2021-10-07 22:46] LABS: Glucose Point of Care 222 mg/dl (65-105)
--- NOTE | 2021-10-07 23:30 | PCRCNOTE ---
Window of time for administration has passed. See next scheduled administration.
[2021-10-08] VITALS (11 sets, daily range): BP systolic 128–174; BP diastolic 61–87; PULSE 68–106; RESP 18–22; TEMP 36.1–36.7; O2SAT 93–99
[2021-10-08] MEDS: hydrALAZINE HCL 20 MG/ML VIAL 10 MG IV PUSH (05:10)
[2021-10-08] MEDS: HYDROcodone/acetaminophen (*CRX) 5-325 MG TABLET 1 TAB PO ×3 (05:13→22:15)
[2021-10-08] MEDS: LEVOTHYROXINE SODIUM 50 MCG TABLET PO (05:14)
[2021-10-08 07:58] LABS: Glucose Point of Care 151 mg/dl (65-105)
[2021-10-08] MEDS: PANTOPRAZOLE 40 MG TABLET PO ×2 (08:31→17:09)
[2021-10-08] MEDS: ENOXAPARIN 40 MG/0.4 ML SYRINGE SUB-Q (08:31)
[2021-10-08] MEDS: LOSARTAN POTASSIUM 100 MG TABLET PO (08:31)
[2021-10-08] MEDS: ROFLUMILAST 500 MCG TABLET PO (08:31)
[2021-10-08] MEDS: ALPRAZolam (*CRX) 0.5 MG TABLET PO ×3 (08:31→17:09)
[2021-10-08] MEDS: ASPIRIN 81 MG ENTERIC TABLET PO (08:31)
[2021-10-08] MEDS: buPROPion HCL XL (24 HR) 150 MG TABCR PO (08:31)
[2021-10-08] MEDS: GABAPENTIN 100 MG CAPSULE PO ×2 (08:31→17:09)
[2021-10-08] MEDS: BACLOFEN 10 MG TABLET PO ×3 (08:31→17:09)
[2021-10-08] MEDS: ROSUVASTATIN 10 MG TABLET 20 MG PO (08:31)
[2021-10-08] MEDS: guaiFENesin 12 HR 600 MG TABCR PO ×2 (08:31→22:12)
[2021-10-08] MEDS: ESCITALOPRAM OXALATE 10 MG TABLET PO (08:31)
[2021-10-08] MEDS: BARICITINIB 2 MG TABLET 4 MG PO (08:34)
[2021-10-08] MEDS: ALBUTEROL SULFATE (*SP) INHALER 2 PUFF INHALATION ×4 (08:40→23:50)
[2021-10-08 09:50] LABS: Basophils Percent Auto 0.1 % (0.2-1.2); Eosinophils Percent Auto 0.1 % (0-4.4); Hematocrit 44.9 % (37.0-47.0); Hemoglobin 14.3 g/dL (12.0-15.0); Immature Granulocyte Absolute 0.11 K/mm3 (0.00-0.031); Immature Granulocyte Percent A 0.8 % (0-0.5); Lymphocytes Absolute Auto 1.89 K/mm3 (0.9-3.2); Lymphocytes Percent Auto 12.9 % (18.3-44.2); Mean Corpuscular HGB Conc 31.8 g/dl (32-36); Mean Corpuscular Hemoglobin 29.5 pg (26-34); Mean Corpuscular Volume 92.8 fl (80-100); Mean Platelet Volume 10.5 fl (7.4-10.4); Monocytes Percent Auto 6.6 % (2.6-8.5); Neutrophils Absolute Auto 11.6 K/mm3 (1.3-6.7); Neutrophils Percent Auto 79.5 % (45.5-73.1); Platelet Count Result 475 k/mm3 (150-375); Red Blood Count 4.84 M/mm3 (4.2-5.4); White Blood Count 14.6 K/mm3 (4.5-10.0)
[2021-10-08 10:05] LABS: INR 1.1; Prothrombin Time 13.6 Seconds (11.1-14.7)
[2021-10-08 10:18] LABS: Alanine Aminotransferase 31 U/L (4-35); Aspartate Amino Transferase 29 U/L (14-36); Estimated CRCL calculation 114 ml/min; Estimated Glomerular Filt Rate > 60
[2021-10-08 12:18] LABS: Glucose Point of Care 222 mg/dl (65-105)
[2021-10-08] MEDS: INSULIN ASPART (*BKC) 100 UNITS/ML SUB-Q ×2 (12:30→17:09)
--- NOTE | 2021-10-08 13:26 | PM.IMPN ---
Progress Note: A&P Assessment and Plan (1) Acute on chronic respiratory failure with hypoxia and hypercapnia: Code(s): J96.21 - Acute and chronic respiratory failure with hypoxia; J96.22 - Acute and chronic respiratory failure with hypercapnia Status: Acute Assessment and Plan: Patient normally wears 3 L of oxygen at home. ABG 7.40/55/53 on 3 L. CTA of the chest was negative for PE but was consistent with COVID. Rapid COVID test was negative but the PCR was positive. She was started on Solu-Medrol, Rocephin and azithromycin as well as nebulizer treatments. Steroids changed to dexamethasone and abx stopped once COVID test returned postive. Remdesivir and baricitinib added. Changed nebulizer treatments to inhalers. CRP better at 1.9 and LDH normal. Elevated WBC from the steroids. ST evaluation okay. (2) Pneumonia due to COVID-19 virus: Code(s): U07.1 - COVID-19; J12.82 - Pneumonia due to coronavirus disease 2018 Status: Acute Assessment and Plan: Rapid COVID test was negative but PCR positive. Imaging consistent with COVID pneumonia. CRP down to 1.9 and LDH remains normal. As above. (3) Pneumonia: Qualifiers: Laterality: bilateral Lung location: unspecified part of lung Pneumonia type: due to unspecified organism Qualified Code(s): J18.9 - Pneumonia, unspecified organism Code(s): J18.9 - Pneumonia, unspecified organism Status: Acute Assessment and Plan: There is question the patient may have bacterial pneumonia although felt less likely. No fevers and white count was essentially normal (higher now due to steroids). Antibiotics stopped. (4) Acute exacerbation of chronic obstructive pulmonary disease (COPD): Code(s): J44.1 - Chronic obstructive pulmonary disease with (acute) exacerbation Status: Acute Assessment and Plan: Possible COPD exacerbation. Treatment as above. (5) Diabetes mellitus: Code(s): E11.9 - Type 2 diabetes mellitus without complications Status: Acute Assessment and Plan: The patient's blood glucose was reviewed on 10/06 Glucose values are still elevated. Continue AccuCheks covering with sliding scale. Hypoglycemia protocol available as needed. Advance lantus again. Accu-Cheks are improving in the 151-260 range. (6) Diastolic CHF: Code(s): I50.30 - Unspecified diastolic (congestive) heart failure Status: Acute Assessment and Plan: Chest x-ray and CT scan more consistent with COVID pneumonia. BNP 100. Repeat echo 10/04 showing EF 65-70% with grade I diastolic dysfunction; the RVSP is normal. Doubt CHF exacerbation. (7) Obstructive sleep apnea: Onset Date: ~2016 Code(s): G47.33 - Obstructive sleep apnea (adult) (pediatric) Status: Acute Assessment and Plan: Refusing noninvasive ventilation. Encourage BiPAP at night. And with naps. (8) Pulmonary hypertension: Code(s): I27.20 - Pulmonary hypertension, unspecified Status: Acute Assessment and Plan: Right heart catheterization in April 2020 showing moderate pulmonary hypertension. Echo as mentioned above (9) Morbid obesity: Code(s): E66.01 - Morbid (severe) obesity due to excess calories Status: Acute Assessment and Plan: BMI 50.6. Her morbid obesity is contributing to her other medical problems. Healthy lifestyle choices were encouraged. (10) DVT prophylaxis: Code(s): Z29.9 - Encounter for prophylactic measures, unspecified Status: Acute Assessment and Plan: Lovenox but decrease to daily Additional Plan Patient is stable. The continue remdesivir steroid. Encourage out of bed to chair. Subjective Date/time seen: 10/08/21 14:21 S: Patient was seen and examined at the bedside. She complains of nasal congestion. She reports cough. Currently oxygen requirement down from 6 L to 5 L. Interval history: 5
[2021-10-08 16:38] LABS: Glucose Point of Care 260 mg/dl (65-105)
[2021-10-08] MEDS: FLUTICASONE PROPIONATE 0.05% NA SPR 16 GM BTL (*BKC) 2 SPRAY NASAL (18:36)
[2021-10-08] MEDS: BENZONATATE 100 MG CAPSULE 200 MG PO (18:36)
[2021-10-08] MEDS: VERAPAMIL HCL 180 MG TABLET ER 360 MG PO (22:12)
[2021-10-08] MEDS: GABAPENTIN 300 MG CAPSULE PO (22:12)
[2021-10-08] MEDS: REMDESIVIR 100 MG/NS 250 ML 100 MG/250 ML BAG 250 MG IVPB (22:13)
[2021-10-08] MEDS: INSULIN GLARGINE (*BKC) 100 UNITS/ML 20 UNITS SUB-Q (22:13)
[2021-10-09] VITALS (8 sets, daily range): BP systolic 127–152; BP diastolic 56–78; PULSE 57–95; RESP 18–21; TEMP 36.3–36.6; O2SAT 92–99
[2021-10-09 03:54] LABS: Glucose Point of Care 323 mg/dl (65-105)
[2021-10-09 03:54] LABS: Glucose Point of Care 421 mg/dl (65-105)
[2021-10-09] MEDS: LEVOTHYROXINE SODIUM 50 MCG TABLET PO (06:38)
[2021-10-09] MEDS: HYDROcodone/acetaminophen (*CRX) 5-325 MG TABLET 1 TAB PO ×2 (06:41→20:41)
[2021-10-09 07:23] LABS: Aspartate Amino Transferase 24 U/L (14-36)
[2021-10-09 07:34] LABS: Basophils Percent Auto 0.1 % (0.2-1.2); Hematocrit 44.7 % (37.0-47.0); Hemoglobin 13.8 g/dL (12.0-15.0); Immature Granulocyte Percent A 1.5 % (0-0.5); Lymphocytes Absolute Auto 1.33 K/mm3 (0.9-3.2); Lymphocytes Percent Auto 9.9 % (18.3-44.2); Mean Corpuscular HGB Conc 30.9 g/dl (32-36); Mean Corpuscular Hemoglobin 29.4 pg (26-34); Mean Corpuscular Volume 95.1 fl (80-100); Mean Platelet Volume 10.7 fl (7.4-10.4); Monocytes Absolute Auto 1.1 K/mm3 (0.1-0.6); Monocytes Percent Auto 7.9 % (2.6-8.5); Neutrophils Absolute Auto 10.8 K/mm3 (1.3-6.7); Neutrophils Percent Auto 80.6 % (45.5-73.1); Platelet Count Result 481 k/mm3 (150-375); Red Cell Distribution Width 12.2 % (11.5-14.5); White Blood Count 13.4 K/mm3 (4.5-10.0)
[2021-10-09] MEDS: ALBUTEROL SULFATE (*SP) INHALER 2 PUFF INHALATION ×4 (08:45→21:15)
[2021-10-09 09:11] LABS: Alanine Aminotransferase 33 U/L (4-35); Estimated CRCL calculation 114 ml/min; Estimated Glomerular Filt Rate > 60
[2021-10-09] MEDS: ALPRAZolam (*CRX) 0.5 MG TABLET PO ×3 (09:12→18:03)
[2021-10-09] MEDS: INSULIN ASPART (*BKC) 100 UNITS/ML SUB-Q ×4 (09:12→18:02)
[2021-10-09] MEDS: BACLOFEN 10 MG TABLET PO ×3 (09:13→18:04)
[2021-10-09] MEDS: BARICITINIB 2 MG TABLET 4 MG PO (09:14)
[2021-10-09] MEDS: ENOXAPARIN 40 MG/0.4 ML SYRINGE SUB-Q (09:14)
[2021-10-09] MEDS: FLUTICASONE PROPIONATE 0.05% NA SPR 16 GM BTL (*BKC) 2 SPRAY NASAL (09:14)
[2021-10-09] MEDS: BENZONATATE 100 MG CAPSULE 200 MG PO ×3 (09:14→18:03)
[2021-10-09] MEDS: buPROPion HCL XL (24 HR) 150 MG TABCR PO (09:15)
[2021-10-09] MEDS: ROFLUMILAST 500 MCG TABLET PO (09:15)
[2021-10-09] MEDS: LOSARTAN POTASSIUM 100 MG TABLET PO (09:15)
[2021-10-09] MEDS: PANTOPRAZOLE 40 MG TABLET PO ×2 (09:15→18:04)
[2021-10-09 10:21] LABS: Glucose Point of Care 106 mg/dl (65-105)
[2021-10-09] MEDS: ASPIRIN 81 MG ENTERIC TABLET PO (11:21)
[2021-10-09] MEDS: guaiFENesin 12 HR 600 MG TABCR PO ×2 (11:21→20:34)
[2021-10-09] MEDS: ROSUVASTATIN 10 MG TABLET 20 MG PO (11:21)
[2021-10-09] MEDS: GABAPENTIN 100 MG CAPSULE PO ×2 (11:21→18:04)
[2021-10-09] MEDS: ESCITALOPRAM OXALATE 10 MG TABLET PO (11:21)
--- NOTE | 2021-10-09 11:26 | PM.IMPN ---
Progress Note: A&P Assessment and Plan (1) Acute on chronic respiratory failure with hypoxia and hypercapnia: Code(s): J96.21 - Acute and chronic respiratory failure with hypoxia; J96.22 - Acute and chronic respiratory failure with hypercapnia Status: Acute Assessment and Plan: Patient normally wears 3 L of oxygen at home. Home O2 evaluation in a.m. CTA of the chest was negative for PE but was consistent with COVID. Rapid COVID test was negative but the PCR was positive. She was started on Solu-Medrol, Rocephin and azithromycin as well as nebulizer treatments. Steroids changed to dexamethasone and abx stopped once COVID test returned postive. Remdesivir and steroids were completed. Changed nebulizer treatments to inhalers. CRP better at 1.9 and LDH normal. Elevated WBC from the steroids. ST evaluation okay. (2) Pneumonia due to COVID-19 virus: Code(s): U07.1 - COVID-19; J12.82 - Pneumonia due to coronavirus disease 2018 Status: Acute Assessment and Plan: Rapid COVID test was negative but PCR positive. Imaging consistent with COVID pneumonia. CRP down to 1.9 and LDH remains normal. As above. (3) Pneumonia: Qualifiers: Laterality: bilateral Lung location: unspecified part of lung Pneumonia type: due to unspecified organism Qualified Code(s): J18.9 - Pneumonia, unspecified organism Code(s): J18.9 - Pneumonia, unspecified organism Status: Acute Assessment and Plan: There is question the patient may have bacterial pneumonia although felt less likely. No fevers and white count was essentially normal (higher now due to steroids). Antibiotics stopped. (4) Acute exacerbation of chronic obstructive pulmonary disease (COPD): Code(s): J44.1 - Chronic obstructive pulmonary disease with (acute) exacerbation Status: Acute Assessment and Plan: Possible COPD exacerbation. Treatment as above. (5) Diabetes mellitus: Code(s): E11.9 - Type 2 diabetes mellitus without complications Status: Acute Assessment and Plan: The patient's blood glucose was reviewed on 10/06 Glucose values are improving. Continue AccuCheks covering with sliding scale. Hypoglycemia protocol available as needed. Advance lantus again. Accu-Cheks are improving in the 106-189 range. (6) Diastolic CHF: Code(s): I50.30 - Unspecified diastolic (congestive) heart failure Status: Acute Assessment and Plan: Chest x-ray and CT scan more consistent with COVID pneumonia. BNP 100. Repeat echo 10/04 showing EF 65-70% with grade I diastolic dysfunction; the RVSP is normal. Doubt CHF exacerbation. (7) Obstructive sleep apnea: Onset Date: ~2016 Code(s): G47.33 - Obstructive sleep apnea (adult) (pediatric) Status: Acute Assessment and Plan: Refusing noninvasive ventilation. Encourage BiPAP at night. And with naps. (8) Pulmonary hypertension: Code(s): I27.20 - Pulmonary hypertension, unspecified Status: Acute Assessment and Plan: Right heart catheterization in April 2020 showing moderate pulmonary hypertension. Echo as mentioned above (9) Morbid obesity: Code(s): E66.01 - Morbid (severe) obesity due to excess calories Status: Acute Assessment and Plan: BMI 50.6. Her morbid obesity is contributing to her other medical problems. Healthy lifestyle choices were encouraged. (10) DVT prophylaxis: Code(s): Z29.9 - Encounter for prophylactic measures, unspecified Status: Acute Assessment and Plan: Lovenox. Additional Plan Patient is stable. She is saturating well on 5 L. wean oxygen today. Encourage out of bed to chair. Subjective Date/time seen: 10/09/21 14:56 S: Patient seen examined at the bedside. She is looking better. She is constantly hungry and is asking for extra food. She is on a regular diet at home without portion control
[2021-10-09 11:55] LABS: Glucose Point of Care 189 mg/dl (65-105)
[2021-10-09 16:46] LABS: Glucose Point of Care 279 mg/dl (65-105)
[2021-10-09] MEDS: VERAPAMIL HCL 180 MG TABLET ER 360 MG PO (20:32)
[2021-10-09] MEDS: GABAPENTIN 300 MG CAPSULE PO (20:33)
[2021-10-09] MEDS: INSULIN GLARGINE (*BKC) 100 UNITS/ML 20 UNITS SUB-Q (22:17)
[2021-10-09 23:09] LABS: Glucose Point of Care 294 mg/dl (65-105)
[2021-10-09] MEDS: ACETAMINOPHEN/ASPIRIN/CAFFEINE 250-250-65 MG TABLET 2 TABLET BY MOUTH (23:13)
[2021-10-10] VITALS (10 sets, daily range): BP systolic 123–147; BP diastolic 57–70; PULSE 58–86; RESP 16–20; TEMP 36.2–36.5; O2SAT 92–99
[2021-10-10] MEDS: LEVOTHYROXINE SODIUM 50 MCG TABLET PO (06:29)
[2021-10-10] MEDS: HYDROcodone/acetaminophen (*CRX) 5-325 MG TABLET 1 TAB PO ×3 (06:45→20:28)
[2021-10-10 07:13] LABS: Alanine Aminotransferase 35 U/L (4-35); Aspartate Amino Transferase 35 U/L (14-36); Estimated CRCL calculation 134 ml/min; Estimated Glomerular Filt Rate > 60
[2021-10-10 07:15] LABS: Basophils Percent Auto 0.1 % (0.2-1.2); Hematocrit 43.6 % (37.0-47.0); Hemoglobin 13.4 g/dL (12.0-15.0); Immature Granulocyte Absolute 0.19 K/mm3 (0.00-0.031); Immature Granulocyte Percent A 1.3 % (0-0.5); Lymphocytes Absolute Auto 1.34 K/mm3 (0.9-3.2); Lymphocytes Percent Auto 9.3 % (18.3-44.2); Mean Corpuscular HGB Conc 30.7 g/dl (32-36); Mean Corpuscular Hemoglobin 29.6 pg (26-34); Mean Corpuscular Volume 96.5 fl (80-100); Mean Platelet Volume 10.6 fl (7.4-10.4); Monocytes Percent Auto 6.6 % (2.6-8.5); Neutrophils Percent Auto 82.7 % (45.5-73.1); Platelet Count Result 438 k/mm3 (150-375); Red Blood Count 4.52 M/mm3 (4.2-5.4); Red Cell Distribution Width 12.4 % (11.5-14.5); White Blood Count 14.5 K/mm3 (4.5-10.0)
[2021-10-10] MEDS: FLUTICASONE PROPIONATE 0.05% NA SPR 16 GM BTL (*BKC) 2 SPRAY NASAL (07:39)
[2021-10-10] MEDS: ALPRAZolam (*CRX) 0.5 MG TABLET PO ×3 (08:21→17:42)
[2021-10-10 08:22] LABS: Glucose Point of Care 104 mg/dl (65-105)
[2021-10-10] MEDS: BACLOFEN 10 MG TABLET PO ×3 (08:23→17:42)
[2021-10-10] MEDS: INSULIN ASPART (*BKC) 100 UNITS/ML SUB-Q ×4 (08:23→17:41)
[2021-10-10] MEDS: BARICITINIB 2 MG TABLET 4 MG PO (08:23)
[2021-10-10] MEDS: PANTOPRAZOLE 40 MG TABLET PO ×2 (08:24→17:42)
[2021-10-10] MEDS: ROFLUMILAST 500 MCG TABLET PO (08:24)
[2021-10-10] MEDS: buPROPion HCL XL (24 HR) 150 MG TABCR PO (08:24)
[2021-10-10] MEDS: ASPIRIN 81 MG ENTERIC TABLET PO (08:24)
[2021-10-10] MEDS: ESCITALOPRAM OXALATE 10 MG TABLET PO (08:24)
[2021-10-10] MEDS: GABAPENTIN 100 MG CAPSULE PO ×2 (08:24→17:42)
[2021-10-10] MEDS: guaiFENesin 12 HR 600 MG TABCR PO ×2 (08:24→20:29)
[2021-10-10] MEDS: ENOXAPARIN 40 MG/0.4 ML SYRINGE SUB-Q (08:25)
[2021-10-10] MEDS: LOSARTAN POTASSIUM 100 MG TABLET PO (08:26)
[2021-10-10] MEDS: BENZONATATE 100 MG CAPSULE 200 MG PO ×3 (08:26→17:42)
[2021-10-10] MEDS: ROSUVASTATIN 10 MG TABLET 20 MG PO (08:26)
[2021-10-10] MEDS: ALBUTEROL SULFATE (*SP) INHALER 2 PUFF INHALATION ×3 (08:52→20:53)
--- NOTE | 2021-10-10 11:14 | PCNWS ---
Weekly nutritional screen. Pt screened in for 7 day length of stay. Patient is tolerating current diet with adequate intake. No weight loss reported. No nutritional needs at this time.
--- NOTE | 2021-10-10 11:15 | PM.IMPN ---
Progress Note: A&P Assessment and Plan (1) Acute on chronic respiratory failure with hypoxia and hypercapnia: Code(s): J96.21 - Acute and chronic respiratory failure with hypoxia; J96.22 - Acute and chronic respiratory failure with hypercapnia Status: Acute Assessment and Plan: Patient normally wears 3 L of oxygen at home. Home O2 evaluation in a.m. CTA of the chest was negative for PE but was consistent with COVID. Rapid COVID test was negative but the PCR was positive. She was started on Solu-Medrol, Rocephin and azithromycin as well as nebulizer treatments. Steroids changed to dexamethasone and abx stopped once COVID test returned postive. Remdesivir and steroids were completed. Changed nebulizer treatments to inhalers. CRP better at 1.9 and LDH normal. Elevated WBC from the steroids. ST evaluation okay. (2) Pneumonia due to COVID-19 virus: Code(s): U07.1 - COVID-19; J12.82 - Pneumonia due to coronavirus disease 2018 Status: Acute Assessment and Plan: Rapid COVID test was negative but PCR positive. Imaging consistent with COVID pneumonia. CRP down to 1.9 and LDH remains normal. As above. (3) Pneumonia: Qualifiers: Laterality: bilateral Lung location: unspecified part of lung Pneumonia type: due to unspecified organism Qualified Code(s): J18.9 - Pneumonia, unspecified organism Code(s): J18.9 - Pneumonia, unspecified organism Status: Acute Assessment and Plan: There is question the patient may have bacterial pneumonia although felt less likely. No fevers and white count was essentially normal (higher now due to steroids). Antibiotics stopped. (4) Acute exacerbation of chronic obstructive pulmonary disease (COPD): Code(s): J44.1 - Chronic obstructive pulmonary disease with (acute) exacerbation Status: Acute Assessment and Plan: Possible COPD exacerbation. Treatment as above. (5) Diabetes mellitus: Code(s): E11.9 - Type 2 diabetes mellitus without complications Status: Acute Assessment and Plan: The patient's blood glucose was reviewed on 10/06 Glucose values are improving. Continue AccuCheks covering with sliding scale. Hypoglycemia protocol available as needed. Advance lantus again. Accu-Cheks are improving in the 104-255 range. (6) Diastolic CHF: Code(s): I50.30 - Unspecified diastolic (congestive) heart failure Status: Acute Assessment and Plan: Chest x-ray and CT scan more consistent with COVID pneumonia. BNP 100. Repeat echo 10/04 showing EF 65-70% with grade I diastolic dysfunction; the RVSP is normal. Doubt CHF exacerbation. (7) Obstructive sleep apnea: Onset Date: ~2016 Code(s): G47.33 - Obstructive sleep apnea (adult) (pediatric) Status: Acute Assessment and Plan: Refusing noninvasive ventilation. Encourage BiPAP at night. And with naps. (8) Pulmonary hypertension: Code(s): I27.20 - Pulmonary hypertension, unspecified Status: Acute Assessment and Plan: Right heart catheterization in April 2020 showing moderate pulmonary hypertension. Echo as mentioned above (9) Morbid obesity: Code(s): E66.01 - Morbid (severe) obesity due to excess calories Status: Acute Assessment and Plan: BMI 50.6. Her morbid obesity is contributing to her other medical problems. Healthy lifestyle choices were encouraged. (10) DVT prophylaxis: Code(s): Z29.9 - Encounter for prophylactic measures, unspecified Status: Acute Assessment and Plan: Lovenox. Additional Plan Patient is stable. She is saturating well on 5 L. wean oxygen today. Encourage out of bed to chair. Subjective Date/time seen: 10/10/21 11:15 S: Patient was seen examined at the bedside. She denies any complaints. She is asking for more food. Review of Systems Review of Systems: All systems reviewed & are unrema
[2021-10-10 13:13] LABS: Glucose Point of Care 123 mg/dl (65-105)
[2021-10-10 17:06] LABS: Glucose Point of Care 255 mg/dl (65-105)
--- NOTE | 2021-10-10 18:11 | PCRCNOTE ---
Window of time for administration has passed. See next scheduled administration.
[2021-10-10] MEDS: GABAPENTIN 300 MG CAPSULE PO (20:29)
[2021-10-10] MEDS: VERAPAMIL HCL 180 MG TABLET ER 360 MG PO (20:29)
[2021-10-10 21:40] LABS: Glucose Point of Care 205 mg/dl (65-105)
[2021-10-10] MEDS: INSULIN GLARGINE (*BKC) 100 UNITS/ML 20 UNITS SUB-Q (21:46)
[2021-10-11] VITALS (15 sets, daily range): BP systolic 108–158; BP diastolic 52–84; PULSE 50–83; RESP 14–28; TEMP 35.7–36.6; O2SAT 87–97
[2021-10-11] MEDS: HYDROcodone/acetaminophen (*CRX) 5-325 MG TABLET 1 TAB PO ×3 (03:52→18:03)
[2021-10-11] MEDS: LEVOTHYROXINE SODIUM 50 MCG TABLET PO (06:28)
[2021-10-11 06:33] LABS: Basophils Percent Auto 0.1 % (0.2-1.2); Eosinophils Percent Auto 0.1 % (0-4.4); Hematocrit 43.5 % (37.0-47.0); Hemoglobin 13.4 g/dL (12.0-15.0); Immature Granulocyte Absolute 0.17 K/mm3 (0.00-0.031); Immature Granulocyte Percent A 0.9 % (0-0.5); Lymphocytes Absolute Auto 1.25 K/mm3 (0.9-3.2); Lymphocytes Percent Auto 6.7 % (18.3-44.2); Mean Corpuscular HGB Conc 30.8 g/dl (32-36); Mean Corpuscular Hemoglobin 29.6 pg (26-34); Mean Corpuscular Volume 96.2 fl (80-100); Mean Platelet Volume 10.5 fl (7.4-10.4); Monocytes Absolute Auto 1.2 K/mm3 (0.1-0.6); Monocytes Percent Auto 6.1 % (2.6-8.5); Neutrophils Absolute Auto 16.2 K/mm3 (1.3-6.7); Neutrophils Percent Auto 86.1 % (45.5-73.1); Platelet Count Result 430 k/mm3 (150-375); Red Blood Count 4.52 M/mm3 (4.2-5.4); Red Cell Distribution Width 12.3 % (11.5-14.5); White Blood Count 18.8 K/mm3 (4.5-10.0)
[2021-10-11 06:42] LABS: Alanine Aminotransferase 36 U/L (4-35); Aspartate Amino Transferase 21 U/L (14-36); Estimated CRCL calculation 99 ml/min; Estimated Glomerular Filt Rate > 60
[2021-10-11] MEDS: BACLOFEN 10 MG TABLET PO ×3 (08:18→18:03)
[2021-10-11] MEDS: ALPRAZolam (*CRX) 0.5 MG TABLET PO ×3 (08:18→18:03)
[2021-10-11] MEDS: BENZONATATE 100 MG CAPSULE 200 MG PO ×3 (08:20→18:03)
[2021-10-11] MEDS: ASPIRIN 81 MG ENTERIC TABLET PO (08:20)
[2021-10-11] MEDS: FLUTICASONE PROPIONATE 0.05% NA SPR 16 GM BTL (*BKC) 2 SPRAY NASAL (08:20)
[2021-10-11] MEDS: ENOXAPARIN 40 MG/0.4 ML SYRINGE SUB-Q (08:20)
[2021-10-11] MEDS: ROFLUMILAST 500 MCG TABLET PO (08:21)
[2021-10-11] MEDS: GABAPENTIN 100 MG CAPSULE PO ×2 (08:21→18:02)
[2021-10-11] MEDS: BARICITINIB 2 MG TABLET 4 MG PO (08:21)
[2021-10-11] MEDS: LOSARTAN POTASSIUM 100 MG TABLET PO (08:21)
[2021-10-11] MEDS: PANTOPRAZOLE 40 MG TABLET PO ×2 (08:21→18:02)
[2021-10-11] MEDS: ROSUVASTATIN 10 MG TABLET 20 MG PO (08:21)
[2021-10-11] MEDS: guaiFENesin 12 HR 600 MG TABCR PO ×2 (08:22→21:42)
[2021-10-11] MEDS: ESCITALOPRAM OXALATE 10 MG TABLET PO (08:22)
[2021-10-11] MEDS: buPROPion HCL XL (24 HR) 150 MG TABCR PO (08:22)
[2021-10-11] MEDS: ALBUTEROL SULFATE (*SP) INHALER 2 PUFF INHALATION ×2 (08:25→13:26)
[2021-10-11] MEDS: INSULIN ASPART (*BKC) 100 UNITS/ML SUB-Q ×3 (08:30→17:13)
[2021-10-11 09:17] LABS: Glucose Point of Care 94 mg/dl (65-105)
[2021-10-11 12:10] LABS: Glucose Point of Care 179 mg/dl (65-105)
--- NOTE | 2021-10-11 14:02 | HOMEO2EVAL ---
Evaluation was performed at [facility] Home Oxygen Evaluation RC: Home Oxygen (O2) Evaluation Start: 10/11/21 09:16 Freq: ONCE Status: Active Protocol: RPE Activity Type Activity Date Activity User E-Sign Co-Sign Detail Recorded Client Recorded Date Recorded By Document 10/11/21 13:30 [email or web address] [email or web address] 10/11/21 14:02 ISABELLA Document 10/11/21 13:33 ISABELLA [email or web address] 10/11/21 14:02 ISABELLA Document 10/11/21 13:34 ISABELLA [email or web address] 10/11/21 14:02 ISABELLA Document 10/11/21 13:35 ISABELLA [email or web address] 10/11/21 14:02 ISABELLA Document 10/11/21 13:40 ISABELLA [email or web address] 10/11/21 14:02 ISABELLA Document 10/11/21 13:42 ISABELLA [email or web address] 10/11/21 14:02 ISABELLA Document 10/11/21 13:50 [email or web address] [email or web address] 10/11/21 14:02 ISABELLA 10/11/21 10/11/21 10/11/21 13:30 13:33 13:34 Home O2 Evaluation Test Phase Resting Resting Resting Oxygen Delivery Room Air Nasal Cannula Nasal Cannula Oxygen Flow Rate (L/min) 2 3 Pulse Oximetry (90-100 %) 87 L 87 L 87 L Home Oxygen Evaluation Comments 10/11/21 10/11/21 10/11/21 13:35 13:40 13:42 Home O2 Evaluation Test Phase Resting Exercise Exercise Oxygen Delivery Nasal Cannula Nasal Cannula Nasal Cannula Oxygen Flow Rate (L/min) 4 4 5 Pulse Oximetry (90-100 %) 92 87 L 89 L Home Oxygen Evaluation Comments PT REQUIRES 4 L AT REST AND 5 L WITH ACTIVITY 10/11/21 13:50 Home O2 Evaluation Test Phase Resting Oxygen Delivery Nasal Cannula Oxygen Flow Rate (L/min) 4 Pulse Oximetry (90-100 %) 92 Home Oxygen Evaluation Comments
--- NOTE | 2021-10-11 14:02 | PCRCNOTE ---
HOME O2 EVAL DONE, 4 L AT REST AND 5 L WITH ACTIVITY. PT HAS HOME O2 WITH [facility]. PT HAS A POC AND HOME CONCENTRATOR, PT HAS ALL HOME O2 NEEDS MET ON WITH 4 L REST/ 5L ACTIVITY.
--- NOTE | 2021-10-11 14:56 | PM.IMPN ---
Progress Note: A&P Assessment and Plan (1) Acute on chronic respiratory failure with hypoxia and hypercapnia: Code(s): J96.21 - Acute and chronic respiratory failure with hypoxia; J96.22 - Acute and chronic respiratory failure with hypercapnia Status: Acute Assessment and Plan: Patient normally wears 3 L of oxygen at home. Home O2 evaluation: She needs 4 L of oxygen at rest and 5 L with activity. CTA of the chest was negative for PE but was consistent with COVID. Rapid COVID test was negative but the PCR was positive. She was started on Solu-Medrol, Rocephin and azithromycin as well as nebulizer treatments. Steroids changed to dexamethasone and abx stopped once COVID test returned postive. Remdesivir and steroids courses were completed. Changed nebulizer treatments to inhalers. CRP better at 1.9 and LDH normal. Elevated WBC from the steroids. ST evaluation okay. (2) Pneumonia due to COVID-19 virus: Code(s): U07.1 - COVID-19; J12.82 - Pneumonia due to coronavirus disease 2019 Status: Acute Assessment and Plan: Rapid COVID test was negative but PCR positive. Imaging consistent with COVID pneumonia. CRP down to 1.9 and LDH remains normal. As above. (3) Pneumonia: Qualifiers: Laterality: bilateral Lung location: unspecified part of lung Pneumonia type: due to unspecified organism Qualified Code(s): J18.9 - Pneumonia, unspecified organism Code(s): J18.9 - Pneumonia, unspecified organism Status: Acute Assessment and Plan: There is question the patient may have bacterial pneumonia although felt less likely. No fevers and white count was essentially normal (higher now due to steroids). Antibiotics stopped. (4) Acute exacerbation of chronic obstructive pulmonary disease (COPD): Code(s): J44.1 - Chronic obstructive pulmonary disease with (acute) exacerbation Status: Acute Assessment and Plan: Possible COPD exacerbation. Treatment as above. (5) Diabetes mellitus: Code(s): E11.9 - Type 2 diabetes mellitus without complications Status: Acute Assessment and Plan: The patient's blood glucose was reviewed on 10/06 Glucose values are improving. Continue AccuCheks covering with sliding scale. Hypoglycemia protocol available as needed. Continue lantus. Accu-Cheks are improving in the 94-187 range. (6) Diastolic CHF: Code(s): I50.30 - Unspecified diastolic (congestive) heart failure Status: Acute Assessment and Plan: Chest x-ray and CT scan more consistent with COVID pneumonia. BNP 100. Repeat echo 10/04 showing EF 65-70% with grade I diastolic dysfunction; the RVSP is normal. Doubt CHF exacerbation. (7) Obstructive sleep apnea: Onset Date: ~2016 Code(s): G47.33 - Obstructive sleep apnea (adult) (pediatric) Status: Acute Assessment and Plan: Refusing noninvasive ventilation. Encourage BiPAP at night. And with naps. (8) Pulmonary hypertension: Code(s): I27.20 - Pulmonary hypertension, unspecified Status: Acute Assessment and Plan: Right heart catheterization in April 2020 showing moderate pulmonary hypertension. Echo as mentioned above (9) Morbid obesity: Code(s): E66.01 - Morbid (severe) obesity due to excess calories Status: Acute Assessment and Plan: BMI 50.6. Her morbid obesity is contributing to her other medical problems. Healthy lifestyle choices were encouraged. (10) DVT prophylaxis: Code(s): Z29.9 - Encounter for prophylactic measures, unspecified Status: Acute Assessment and Plan: Lovenox. Additional Plan Patient is stable. She is saturating well on 5 L. wean oxygen today. Encourage out of bed to chair. Subjective Date/time seen: 10/11/21 14:56 S: Was examined at the bedside. No active complaints. Home O2 evaluation was done. Review of Systems Review of Systems:
[2021-10-11] MEDS: ACETAMINOPHEN/ASPIRIN/CAFFEINE 250-250-65 MG TABLET 2 TABLET BY MOUTH (15:46)
[2021-10-11 16:58] LABS: Glucose Point of Care 187 mg/dl (65-105)
[2021-10-11] MEDS: GABAPENTIN 300 MG CAPSULE PO (21:42)
[2021-10-11] MEDS: VERAPAMIL HCL 180 MG TABLET ER 360 MG PO (21:42)
[2021-10-11] MEDS: INSULIN GLARGINE (*BKC) 100 UNITS/ML 20 UNITS SUB-Q (21:43)
[2021-10-12] VITALS: BP 159/58; PULSE 71; RESP 20; TEMP 36.9; O2SAT 97
[2021-10-12] MEDS: ALBUTEROL SULFATE (*SP) INHALER 2 PUFF INHALATION ×3 (00:07→12:06)
[2021-10-12] MEDS: HYDROcodone/acetaminophen (*CRX) 5-325 MG TABLET 1 TAB PO ×2 (00:13→06:07)
[2021-10-12 00:24] LABS: Glucose Point of Care 288 mg/dl (65-105)
[2021-10-12 04:00] VITALS: BP 141/68; PULSE 56; RESP 20; TEMP 36.6; O2SAT 100
[2021-10-12] MEDS: ACETAMINOPHEN/ASPIRIN/CAFFEINE 250-250-65 MG TABLET 2 TABLET BY MOUTH (05:07)
[2021-10-12] MEDS: LEVOTHYROXINE SODIUM 50 MCG TABLET PO (06:07)
[2021-10-12 06:56] LABS: Basophils Percent Auto 0.1 % (0.2-1.2); Hematocrit 42.8 % (37.0-47.0); Immature Granulocyte Absolute 0.16 K/mm3 (0.00-0.031); Lymphocytes Absolute Auto 1.44 K/mm3 (0.9-3.2); Lymphocytes Percent Auto 8.6 % (18.3-44.2); Mean Corpuscular HGB Conc 30.4 g/dl (32-36); Mean Corpuscular Hemoglobin 29.4 pg (26-34); Mean Corpuscular Volume 96.8 fl (80-100); Mean Platelet Volume 11.1 fl (7.4-10.4); Monocytes Absolute Auto 1.2 K/mm3 (0.1-0.6); Neutrophils Percent Auto 83.3 % (45.5-73.1); Platelet Count Result 414 k/mm3 (150-375); Red Blood Count 4.42 M/mm3 (4.2-5.4); Red Cell Distribution Width 12.3 % (11.5-14.5); White Blood Count 16.8 K/mm3 (4.5-10.0)
[2021-10-12 07:12] LABS: Alanine Aminotransferase 29 U/L (4-35); Aspartate Amino Transferase 26 U/L (14-36); Estimated CRCL calculation 114 ml/min; Estimated Glomerular Filt Rate > 60
[2021-10-12 07:59] LABS: Glucose Point of Care 161 mg/dl (65-105)
[2021-10-12 08:00] VITALS: BP 136/82; PULSE 57; RESP 14; TEMP 36.6; O2SAT 91; O2SAT 98
[2021-10-12 08:34] VITALS: O2SAT 94
[2021-10-12] MEDS: PANTOPRAZOLE 40 MG TABLET PO (08:40)
[2021-10-12] MEDS: GABAPENTIN 100 MG CAPSULE PO (08:40)
[2021-10-12] MEDS: BARICITINIB 2 MG TABLET 4 MG PO (08:40)
[2021-10-12] MEDS: ROFLUMILAST 500 MCG TABLET PO (08:40)
[2021-10-12] MEDS: ROSUVASTATIN 10 MG TABLET 20 MG PO (08:40)
[2021-10-12] MEDS: BENZONATATE 100 MG CAPSULE 200 MG PO (08:40)
[2021-10-12] MEDS: FLUTICASONE PROPIONATE 0.05% NA SPR 16 GM BTL (*BKC) 2 SPRAY NASAL (08:41)
[2021-10-12] MEDS: BACLOFEN 10 MG TABLET PO (08:41)
[2021-10-12] MEDS: guaiFENesin 12 HR 600 MG TABCR PO (08:41)
[2021-10-12] MEDS: ENOXAPARIN 40 MG/0.4 ML SYRINGE SUB-Q (08:41)
[2021-10-12] MEDS: LOSARTAN POTASSIUM 100 MG TABLET PO (08:41)
[2021-10-12] MEDS: ESCITALOPRAM OXALATE 10 MG TABLET PO (08:41)
[2021-10-12] MEDS: buPROPion HCL XL (24 HR) 150 MG TABCR PO (08:41)
[2021-10-12] MEDS: ASPIRIN 81 MG ENTERIC TABLET PO (08:41)
[2021-10-12] MEDS: INSULIN ASPART (*BKC) 100 UNITS/ML SUB-Q (08:42)
[2021-10-12] MEDS: ALPRAZolam (*CRX) 0.5 MG TABLET PO (08:54)
--- NOTE | 2021-10-12 10:26 | PM.DS ---
DS: Admitting Diagnosis Discharge Date 10/12/2021 Admitting Diagnosis Acute on chronic respiratory failure. COVID-19 pneumonia. DS: Discharge Diagnosis Discharge Diagnosis (1) Acute on chronic respiratory failure with hypoxia and hypercapnia: Code(s): J96.21 - Acute and chronic respiratory failure with hypoxia; J96.22 - Acute and chronic respiratory failure with hypercapnia Status: Acute Assessment and Plan: Patient normally wears 3 L of oxygen at home. Home O2 evaluation: She needs 4 L of oxygen at rest and 5 L with activity. CTA of the chest was negative for PE but was consistent with COVID. Rapid COVID test was negative but the PCR was positive. She was started on Solu-Medrol, Rocephin and azithromycin as well as nebulizer treatments. Steroids changed to dexamethasone and abx stopped once COVID test returned postive. Remdesivir and steroids courses were completed. Changed nebulizer treatments to inhalers. CRP better at 1.9 and LDH normal. Elevated WBC from the steroids. ST evaluation okay. (2) Pneumonia due to COVID-19 virus: Code(s): U07.1 - COVID-19; J12.82 - Pneumonia due to coronavirus disease 2018 Status: Acute Assessment and Plan: Rapid COVID test was negative but PCR positive. Imaging consistent with COVID pneumonia. CRP down to 1.9 and LDH remains normal. As above. (3) Pneumonia: Qualifiers: Laterality: bilateral Lung location: unspecified part of lung Pneumonia type: due to unspecified organism Qualified Code(s): J18.9 - Pneumonia, unspecified organism Code(s): J18.9 - Pneumonia, unspecified organism Status: Acute Assessment and Plan: There is question the patient may have bacterial pneumonia although felt less likely. No fevers and white count was essentially normal (higher now due to steroids). Antibiotics stopped. (4) Acute exacerbation of chronic obstructive pulmonary disease (COPD): Code(s): J44.1 - Chronic obstructive pulmonary disease with (acute) exacerbation Status: Acute Assessment and Plan: Possible COPD exacerbation. Treatment as above. (5) Diabetes mellitus: Code(s): E11.9 - Type 2 diabetes mellitus without complications Status: Acute Assessment and Plan: The patient's blood glucose was reviewed on 10/06 Glucose values are improving. Continue AccuCheks covering with sliding scale. Hypoglycemia protocol available as needed. Continue lantus. Accu-Cheks are improving in the 94-187 range. (6) Diastolic CHF: Code(s): I50.30 - Unspecified diastolic (congestive) heart failure Status: Acute Assessment and Plan: Chest x-ray and CT scan more consistent with COVID pneumonia. BNP 100. Repeat echo 10/04 showing EF 65-70% with grade I diastolic dysfunction; the RVSP is normal. Doubt CHF exacerbation. (7) Obstructive sleep apnea: Onset Date: ~2016 Code(s): G47.33 - Obstructive sleep apnea (adult) (pediatric) Status: Acute Assessment and Plan: Refusing noninvasive ventilation. Encourage BiPAP at night. And with naps. (8) Pulmonary hypertension: Code(s): I27.20 - Pulmonary hypertension, unspecified Status: Acute Assessment and Plan: Right heart catheterization in April 2020 showing moderate pulmonary hypertension. Echo as mentioned above (9) Morbid obesity: Code(s): E66.01 - Morbid (severe) obesity due to excess calories Status: Acute Assessment and Plan: BMI 50.6. Her morbid obesity is contributing to her other medical problems. Healthy lifestyle choices were encouraged. (10) DVT prophylaxis: Code(s): Z29.9 - Encounter for prophylactic measures, unspecified Status: Acute Assessment and Plan: Lovenox. DS: Summary Hospital Course Reason for hospitalization: Worsening shortness of breath. Hospital Course: Please refer to admission H& P. Briefly, this is a
== END 2021-10-12 11:15 | disposition home or self-care (01) | DRG 177 ==
LOC: ANHED 18:38 → ANH3MEDSUR 10-04 11:34
PROVIDERS: Emergency Medicine; Internal Medicine; Admitting Provider Internal Medicine; Emergency Provider Emergency Medicine; PCP Emergency Medicine; Visit Provider Internal Medicine
DX: U07.1 COVID-19 (principal); J96.21 Acute and chronic respiratory failure with hypoxia; J12.82 Pneumonia due to coronavirus disease 2019; J96.22 Acute and chronic respiratory failure with hypercapnia; I50.32 Chronic diastolic (congestive) heart failure; Z68.43 Body mass index [BMI] 50.0-59.9, adult; I11.0 Hypertensive heart disease with heart failure; I27.20 Pulmonary hypertension, unspecified; J43.9 Emphysema, unspecified; Z99.81 Dependence on supplemental oxygen; E66.01 Morbid (severe) obesity due to excess calories; G47.33 Obstructive sleep apnea (adult) (pediatric); F31.9 Bipolar disorder, unspecified; E11.40 Type 2 diabetes mellitus with diabetic neuropathy, unspecified; K21.9 Gastro-esophageal reflux disease without esophagitis; I25.10 Atherosclerotic heart disease of native coronary artery without angina pectoris; N39.41 Urge incontinence; E03.9 Hypothyroidism, unspecified; Z79.84 Long term (current) use of oral hypoglycemic drugs; Z79.899 Other long term (current) drug therapy; Z87.891 Personal history of nicotine dependence
CPT/HCPCS: 36415; 36600; 71045; 71275; 80048; 80053; 80069; 82565; 82728; 82805; 82948; 83615; 83880; 84450; 84460; 85025; 85027; 85610; 86140; 87040; 87426; 92610; 93005; 93306; 94002; 94003; 94640; 96374; 97110; 97162; 97165; 97530; 97535; 99285; A9270; C9803; J0360; J0456; J0696; J1100; J1650; J1815; J2405; J2930; Q9967; U0003; U0005

== ENCOUNTER 2022-02-08 14:38 | Inpatient (IN) | payer MEDICARE, MEDICAID, SELFPAY ==
[2022-02-08] VITALS (19 sets, daily range): BP systolic 122–148; BP diastolic 68–90; PULSE 83–98; RESP 20–31; TEMP 36.5–36.8; O2SAT 93–99; BMI 52.2
--- NOTE | ~2022-02-08 | XR_ITS ---
XR chest 2V DATE: 02/08/2022 15:11 INDICATION: Chest pain for 2 days, left side. History of CHF and pneumonia. TECHNIQUE: AP and lateral views COMPARISON: 10/03/2021 CT pulmonary scan 10/03/2021 portable AP chest FINDINGS: There is interval resolution of bilateral pulmonary infiltrates since 10/03/2021. Cardiomegaly. No pleural effusion is evident. No pneumothorax. IMPRESSION: Diffuse osteopenia. Resolution bilateral pulmonary infiltrates since 10/03/2021 Cardiomegaly Osteopenia Reviewed, dictated and finalized at location A.
--- NOTE | ~2022-02-08 | CT_ITS ---
EXAMINATION: CTA chest PE protocol DATE: 02/08/2022 17:15 INDICATION: Chest pain. Dyspnea. TECHNIQUE: Computed tomography angiography (CTA) of the chest was performed with 100 mL Omnipaque-350 intravenous contrast timed to evaluate the pulmonary arteries. Coronal maximum intensity projection 3D-reconstructions were created by the technologist. Automated exposure control and iterative reconst ruction technique were employed. The dose-length product was 968.48 mGy-cm. COMPARISON: Chest CT 10/03/2021 FINDINGS: There is mild emphysema. There is mild atelectasis bilaterally. There is smooth septal thic kening in the lungs, consistent with mild pulmonary edema. There are trace right and small left pleur al effusions. The heart size is normal. There is a moderate-sized pericardial effusion. There are cor onary artery calcifications. Calcified left hilar and mediastinal lymph nodes are consistent with old granulomatous disease. There is no pulmonary embolus. There is mild thoracic spondylosis. There is m ild chronic anterior wedging of T12. IMPRESSION: 1. No pulmonary embolus. 2. Mild pulmonary edema with trace right and small left pleural effusions. 3. Mild emphysema. 4. Moderate-sized pericardial effusion. Reviewed, dictated and finalized at location A.
--- NOTE | ~2022-02-08 | US_ITS ---
EXAMINATION: US venous doppler [facility] DATE: 02/14/2022 11:44 INDICATION: Lower limb swelling TECHNIQUE: Sunshine scale images without and with compression and Doppler images of the bilateral lower e xtremity veins were obtained. COMPARISON: 11/28/2015 FINDINGS: The right common femoral vein, profunda femoral vein, femoral vein, popliteal vein, peroneal trunk, p osterior tibial veins, and greater saphenous vein are patent. The left common femoral vein, profunda femoral vein, femoral vein, popliteal vein, peroneal trunk, po sterior tibial veins, and greater saphenous vein are patent. IMPRESSION: 1. Patent bilateral lower extremity veins. No evidence of deep venous thrombosis. Reviewed, dictated and finalized at location A. IMPRESSION: 1. Patent bilateral lower extremity veins. No evidence of deep venous thrombosi s.
--- NOTE | 2022-02-08 14:41 | ECG_ITS ---
Measurements Intervals [place] Rate: 0 P: ME: 0 QRS: QRSD: 0 T: QT: 0 QTc: 0 Interpretive Statements SINUS TACHYCARDIA ATRIAL AND VENTRICULAR PREMATURE COMPLEXES BASELINE ARTIFACT- I, III, AVL, AVF BORDERLINE ECG Electronically Signed On 02-08-2022 15:07:33 CDT by Rodrick Magallanes D.O.
[2022-02-08 15:00] LABS: Hematocrit 41.7 % (37.0-47.0); Hemoglobin 13.5 g/dL (12.0-15.0); Mean Corpuscular HGB Conc 32.4 g/dl (32-36); Mean Corpuscular Hemoglobin 30.5 pg (26-34); Mean Corpuscular Volume 94.1 fl (80-100); Platelet Count Result 341 k/mm3 (150-375); Red Blood Count 4.43 M/mm3 (4.2-5.4); Red Cell Distribution Width 12.5 % (11.5-14.5); White Blood Count 20.1 K/mm3 (4.5-10.0)
[2022-02-08 15:01] LABS: Mean Platelet Volume 10.9 fl (7.4-10.4)
[2022-02-08 15:12] LABS: Alanine Aminotransferase 13 U/L (4-35); Alkaline Phosphatase 88 U/L (38-126); Anion Gap 5 mmol/L (8-16); Aspartate Amino Transferase 19 U/L (14-36); Bilirubin,Total 0.5 mg/dL (0.2-1.3); Blood Urea Nitrogen 15 mg/dL (7-17); Calcium 9.1 mg/dL (8.4-10.2); Carbon Dioxide 33 mmol/L (22-30); Chloride 97 mmol/L (98-107); Estimated CRCL calculation 134 ml/min; Estimated Glomerular Filt Rate > 60; Glucose 169 mg/dL (65-110); Lipase 40 U/L (23-300); Potassium 4.2 mmol/L (3.4-5.0); Sodium 135 mmol/L (137-145)
[2022-02-08 15:13] LABS: INR 1.2; Prothrombin Time 14.4 Seconds (11.1-14.7)
[2022-02-08 15:14] LABS: Partial Thromboplastin Time 36.9 SECONDS (22.3-36.8)
[2022-02-08 15:22] LABS: Troponin I < 0.012 ng/mL (0.000-0.034)
[2022-02-08 15:53] LABS: Atypical Lymphocytes Present; Band Neutrophils Percent 3 % (0-6); Monocytes Percent Manual 2 % (3-9); Neutrophils Absolute Manual 18.49 K/mm3 (1.7-7.2); Neutrophils Percent Manual 89 % (46-73); Platelet Estimate Adequate (Adequate); Total Cells Counted 100
[2022-02-08 16:14] LABS: NT Pro B Type Natriuretic Pept 172 pg/mL (5-100)
[2022-02-08 16:48] LABS: D Dimer 0.65 ug/mL (<0.48)
--- NOTE | 2022-02-08 16:51 | ED.CHESTPAIN ---
HPI - Chest Pain General Chief Complaint: Chest Pain Stated Complaint: chest pain Time Seen by Provider: 02/08/22 14:47 Source: RN notes reviewed History of Present Illness HPI narrative: Patient presents emerged department from home for chest pain. Patient states symptoms began last night and worsened this morning the pain is located left superior chest and radiates down the left arm and into the left neck pain is described as sharp and stabbing in nature is worse with movement of the torso and deep inspiration as well as laying down flat patient states that she does have mild shortness of breath with that she states she is normally on 4 L nasal cannula at all times she states that she does have a history of having COVID in October. She denies any fevers or chills abdominal pain nausea vomiting or any other symptoms patient was given aspirin and nitro by EMS in route does note mild improvement with the nitro Related Data Home Medications Medication Instructions Recorded Confirmed Breo Ellipta 1 inh INHALATION DAILY 04/24/20 10/03/21 Daliresp 500 mcg PO DAILY 04/24/20 10/03/21 Excedrin Migraine 2 tab-cap BYMOUTH TID PRN 04/24/20 10/03/21 Spiriva with HandiHaler 1 cap INHALATION DAILY 04/24/20 10/03/21 albuterol sulfate [Ventolin HFA] 2 puff INHALATION Q6H 04/24/20 10/03/21 alprazolam 0.5 mg PO TID 04/24/20 10/03/21 baclofen 10 mg PO TID 04/24/20 10/03/21 bupropion HCl 150 mg PO DAILY 04/24/20 10/03/21 ergocalciferol (vitamin D2) 1 unit PO WEEKLY 04/24/20 10/03/21 [Vitamin D2] escitalopram oxalate 10 mg PO DAILY 04/24/20 10/03/21 furosemide 40 mg PO BID 04/24/20 10/03/21 gabapentin 100 mg PO USEASDIRECTD 04/24/20 10/03/21 hydrocodone-acetaminophen 1 tablet PO Q6H PRN 04/24/20 10/03/21 levothyroxine 50 mcg PO DAILY 04/24/20 10/03/21 losartan 100 mg PO DAILY 04/24/20 10/03/21 omeprazole 20 mg PO BID 04/24/20 10/03/21 promethazine 25 mg PO Q6H PRN 04/24/20 10/03/21 rosuvastatin 20 mg PO DAILY 04/24/20 10/03/21 verapamil 360 mg PO HS 04/24/20 10/03/21 albuterol sulfate 02/08/22 biotin 300 mcg PO DAILY 02/08/22 budesonide-formoterol 2 puff INHALATION Q12H 02/08/22 Allergies Allergy/AdvReac Type Severity Reaction Status Date / Time Penicillins Allergy Unknown Swelling Verified 02/08/22 14:47 Review of Systems Review of Systems: Gen.: Denies fevers or chills ENT: Denies congestion Respiratory: Ports mild shortness of breath denies cough CV: See HPI GI: Denies abdominal pain nausea, emesis or diarrhea Musculoskeletal: Denies back pain or muscle pain Neuro: Denies numbness, tingling, weakness or focal weakness Skin: Denies rash Except as documented, all other systems reviewed and negative PMFSH Past Medical History Medical History Bipolar disorder Chronic respiratory failure with hypoxia and hypercapnia On chronic home O2 since 2012. With history of intubation November 2018 due to influenza associated pneumonia COPD (chronic obstructive pulmonary disease) Severe obstructive ventilatory disease noted on PFTs 02/2021 Diabetes mellitus Diabetic neuropathy Diastolic CHF Essential hypertension GERD (gastroesophageal reflux disease) With distant history of GI bleed Hyperlipidemia Hypothyroidism Kidney stones Major depressive disorder Migraines Moderate pulmonary hypertension Noted on cardiac catheterization April 2020 Normal colonoscopy (~2016) Obesity, morbid, BMI 50 or higher Obstructive sleep apnea (~2017) Uses CPAP of 13 even though her BP polysomnogram in 2016 demonstrated no evidence of obstructive sleep apnea. Oxygen dependent 3L Surgical History Surgical History (Updated 10/03/21 @ 22:46 by Megha Nicole DO) History of History of cardiac catheterization (04/2020) Mild coronary artery disease of ostial and proximal left circumflex, diffuse plaquing of the obtuse marginal 2 History of dilation and curettage History of laparoscopy History
[2022-02-08] MEDS: MORPHINE SULFATE (*CRX) 2 MG/ML INJ IV PUSH (18:07)
[2022-02-08 18:27] LABS: Troponin I < 0.012 ng/mL (0.000-0.034)
--- NOTE | 2022-02-08 19:10 | PC.NURSE ---
Assuming care of pt.
--- NOTE | 2022-02-08 19:52 | PM.IMHP ---
H&P: HPI History of Present Illness Date/Time: 02/08/22 19:53 Chief Complaint: Shortness of breath. Narrative: This is a 61-year-old female with past medical history significant for chronic hypoxic respiratory failure the patient is on 4 L of supplemental oxygen by nasal cannula at rest and 6 L with activity, COPD/emphysema, obstructive sleep apnea on BiPAP at nighttime, morbid obesity, tobacco dependence, hypothyroidism, type 2 diabetes mellitus, bipolar disorder, gastroesophageal reflux disease, diabetic neuropathy, diastolic heart failure, moderate pulmonary hypertension. Patient presents to the emergency room due to retrosternal chest pain and shortness of breath for the last day and a half or so also has been having right-sided epistaxis. Patient noticed worsening bilateral lower extremity swelling as well and over all shortness of breath worsening with PND and orthopnea for the last couple of weeks. Patient denies any fevers ,any rigors, any chills, has had is sputum production which is scanty aunt clear to brownish in color. Patient denies any nausea, vomiting, abdominal pain, diarrhea, patient denies hemoptysis. Preliminary workup was significant for CT angiogram of the chest for moderate size pericardial effusion. Patient is been admitted for further evaluation ,management and treatment. Review of Systems Review of Systems: Chest pain, shortness of breath, leg swelling, cough productive of scanty sputum. Constitutional: Constitutional: Denies chills, Reports fatigue, Denies fever(s) and Denies night sweats Eyes: Eyes: Denies change in vision ENT: Denies dysphagia, Denies vertigo, Reports epistaxis, Denies nasal congestion, Denies nasal discharge and Denies nasal obstruction Cardiovascular: Cardiovascular: Reports chest pain, Reports pedal edema, Reports leg edema, Denies radiating jaw, neck or arm pain, Denies palpitations, Reports dyspnea on exertion and Reports orthopnea Respiratory: Respiratory: Reports change in phlegm color, Reports cough, Reports pain on inspiration and Reports dyspnea Comments: Sputum is scanty Gastrointestinal: Gastrointestinal: Denies abdominal pain, Denies coffee ground emesis, Denies dyspepsia, Denies heartburn, Denies diarrhea, Reports nausea and Denies vomiting Genitourinary: Genitourinary: Denies dysuria Musculoskeletal: Musculoskeletal: Denies arthralgias and Denies limited range of motion Integumentary/Breasts: Skin/Breast: Denies rash Neurologic: Denies focal weakness and Denies Sensory deficit (Neuro) Psychiatric: Psychiatric: Reports no additional psychiatric complaints and Reports as per HPI Endocrine: Endocrine: Denies cold intolerance, Denies heat intolerance, Denies polyphagia, Denies polydipsia and Denies palpitations Hematologic/Lymphatic: Hematologic/Lymphatic: Reports no additional hematologic/lymphatic complaints and Reports as per HPI Allergic/Immunologic: Allergic/Immunologic: Reports no additional allergic/immunologic complaints and Reports as per HPI [facility] Past Medical History Medical History (Updated 02/09/22 @ 03:11 by Marietta Smith MD) Bipolar disorder Chronic respiratory failure with hypoxia and hypercapnia On chronic home O2 since 2012. With history of intubation November 2018 due to influenza associated pneumonia COPD (chronic obstructive pulmonary disease) Severe obstructive ventilatory disease noted on PFTs 02/2021 Diabetes mellitus Diabetic neuropathy Diastolic CHF Essential hypertension GERD (gastroesophageal reflux disease) With distant history of GI bleed Hyperlipidemia Hypothyroidism Kidney stones Major depressive disorder Migraines Moderate pulmonary hypertension Noted on cardiac catheterization April 2020 Normal colonoscopy (~2016) Obesity, morbid, BMI 50 or higher Obstructive sleep apnea (~2016) Uses CPAP of 13 even though her BP polysomnogram in 2017 demonstrated no evidence of obstructive sleep apnea. Oxygen dependent 3L Surgical Histor
--- NOTE | 2022-02-08 20:40 | ADMGEN ---
This patient, Ronel Salinas, was admitted to IMU Room 206-02 at 2020 on 02/08/22. Patient/family oriented to hospital policies and general routines including ID bracelet, bed and alarms, visiting hours, pain management, procedures, bathroom and other care routines, personal items, smoking policy, room service/diet, and visiting hours. Information on how to activate the Rapid Response Team has been discussed. Patient/Family are encouraged to report perceived risks to care and to ask questions if they do not understand what they are told or what they should do.
[2022-02-08 21:14] LABS: Troponin I < 0.012 ng/mL (0.000-0.034)
[2022-02-08 22:04] LABS: SARS-CoV-2 RNA PCR Negative
[2022-02-08 22:10] LABS: Glucose Point of Care 139 mg/dl (65-105)
[2022-02-09] VITALS (19 sets, daily range): BP systolic 125–141; BP diastolic 57–67; PULSE 62–91; RESP 18–32; TEMP 36.2–36.7; O2SAT 90–96
[2022-02-09] MEDS: HYDROcodone/acetaminophen (*CRX) 5-325 MG TABLET 1 TAB PO ×2 (01:31→08:21)
[2022-02-09] MEDS: VERAPAMIL HCL 180 MG TABLET ER 360 MG PO ×2 (01:33→20:20)
[2022-02-09 05:27] LABS: Basophils Absolute Auto 0.1 K/mm3 (0.0-0.1); Basophils Percent Auto 0.3 % (0.2-1.2); Eosinophils Absolute Auto 0.1 K/mm3 (0-0.3); Eosinophils Percent Auto 0.5 % (0-4.4); Hematocrit 43.6 % (37.0-47.0); Hemoglobin 13.2 g/dL (12.0-15.0); Immature Granulocyte Absolute 0.09 K/mm3 (0.00-0.031); Immature Granulocyte Percent A 0.5 % (0-0.5); Lymphocytes Absolute Auto 2.63 K/mm3 (0.9-3.2); Lymphocytes Percent Auto 14.8 % (18.3-44.2); Mean Corpuscular HGB Conc 30.3 g/dl (32-36); Mean Corpuscular Hemoglobin 29.8 pg (26-34); Mean Corpuscular Volume 98.4 fl (80-100); Mean Platelet Volume 10.8 fl (7.4-10.4); Monocytes Absolute Auto 1.9 K/mm3 (0.1-0.6); Monocytes Percent Auto 10.7 % (2.6-8.5); Neutrophils Percent Auto 73.2 % (45.5-73.1); Platelet Count Result 314 k/mm3 (150-375); Red Blood Count 4.43 M/mm3 (4.2-5.4); Red Cell Distribution Width 12.7 % (11.5-14.5); White Blood Count 17.8 K/mm3 (4.5-10.0)
[2022-02-09 05:42] LABS: Alanine Aminotransferase 12 U/L (4-35); Alkaline Phosphatase 93 U/L (38-126); Anion Gap 5 mmol/L (8-16); Aspartate Amino Transferase 14 U/L (14-36); Bilirubin,Total 0.4 mg/dL (0.2-1.3); Blood Urea Nitrogen 12 mg/dL (7-17); Calcium 9.8 mg/dL (8.4-10.2); Carbon Dioxide 35 mmol/L (22-30); Chloride 96 mmol/L (98-107); Estimated CRCL calculation 136 ml/min; Estimated Glomerular Filt Rate > 60; Glucose 134 mg/dL (65-110); Potassium 3.9 mmol/L (3.4-5.0); Sodium 136 mmol/L (137-145)
[2022-02-09] MEDS: methylPREDNISolone SOD SUCC 125 MG VIAL 60 MG IV PUSH ×3 (06:28→17:49)
[2022-02-09] MEDS: LEVOTHYROXINE SODIUM 50 MCG TABLET PO (06:29)
[2022-02-09] MEDS: IPRATROPIUM BR 0.02% INH SOLN 0.5 MG/2.5 ML VIAL INHALATION ×4 (06:38→19:55)
[2022-02-09] MEDS: ALBUTEROL SULFATE NEB 2.5 MG/0.5 ML INH INHALATION ×4 (06:38→19:55)
[2022-02-09] MEDS: FLUTICASONE/SALMETEROL 230-21 MCG INHALER 1 PUFF 2 PUFF INHALATION ×2 (06:47→19:58)
[2022-02-09] MEDS: ALPRAZolam (*CRX) 0.5 MG TABLET PO ×3 (08:21→17:47)
[2022-02-09] MEDS: ASPIRIN 81 MG ENTERIC TABLET PO (08:22)
[2022-02-09] MEDS: buPROPion HCL XL (24 HR) 150 MG TABCR PO (08:22)
[2022-02-09] MEDS: ESCITALOPRAM OXALATE 10 MG TABLET PO (08:22)
[2022-02-09] MEDS: ENOXAPARIN 40 MG/0.4 ML SYRINGE SUB-Q (08:22)
[2022-02-09] MEDS: BACLOFEN 10 MG TABLET PO ×3 (08:22→17:48)
[2022-02-09] MEDS: ROSUVASTATIN 10 MG TABLET 20 MG PO (08:23)
[2022-02-09] MEDS: ROFLUMILAST 500 MCG TABLET PO (08:23)
[2022-02-09] MEDS: FUROSEMIDE INJ 40 MG/4 ML VIAL IV PUSH ×2 (08:23→17:48)
[2022-02-09] MEDS: PANTOPRAZOLE 40 MG TABLET PO ×2 (08:23→17:49)
[2022-02-09] MEDS: LOSARTAN POTASSIUM 100 MG TABLET PO (08:23)
[2022-02-09] MEDS: UMECLIDINIUM BROMIDE 62.5 MCG ELLIPTA 1 PUFF INHALATION (08:25)
[2022-02-09] MEDS: PROMETHAZINE HCL 25 MG TABLET PO (08:29)
[2022-02-09] MEDS: HYDROcodone/acetaminophen (*CRX) 7.5-325 MG TABLET 1 TAB PO ×2 (12:29→20:19)
[2022-02-09] MEDS: ACETAMINOPHEN/ASPIRIN/CAFFEINE 250-250-65 MG TABLET 2 TABLET BY MOUTH (13:21)
[2022-02-09 17:50] LABS: Glucose Point of Care 392 mg/dl (65-105)
--- NOTE | 2022-02-09 18:48 | PM.IMPN ---
Progress Note: A&P Assessment and Plan (1) Chest pain: Code(s): R07.9 - Chest pain, unspecified Status: Acute (2) Pericardial effusion: Code(s): I31.3 - Pericardial effusion (noninflammatory) Status: Acute (3) COPD (chronic obstructive pulmonary disease): Code(s): J44.9 - Chronic obstructive pulmonary disease, unspecified Status: Acute (4) Diastolic CHF: Code(s): I50.30 - Unspecified diastolic (congestive) heart failure Status: Acute (5) Morbid obesity: Code(s): E66.01 - Morbid (severe) obesity due to excess calories Status: Acute Additional Plan # acute respiratory failure with chronic hypoxia # congestive heart failure with preserved ejection fraction # moderate pulmonary hypertension -patient chronically on 4 L oxygen rest, 6 L with activity - patient and increased work of breathing, will continue diuresis - she appears volume overloaded continue Lasix IV b.i.d. 40 mg - she has diminished lung sounds in history of COPD may have COPD exacerbation continue steroids - no sign of infection at this time holding off on antibiotics # COPD/ emphysema - continue umeclidinium, Daliresp, fluticasone/salmeterol, albuterol rescue inhaler - steroids: Solu-Medrol 60 mg q.6 hours - nebs: Continue DuoNebs q.i.d. #other chronic conditions -obstructive sleep apnea: continue home BiPAP 19/05 - hypothyroidism: Continue Synthroid - type 2 diabetes: Diabetic diet, Accu-Cheks a.c. HS, sliding scale insulin, hypoglycemia protocol, checking hemoglobin A1c - bipolar disorder: Lexapro, bupropion, Xanax -GERD: Protonix -diabetic neuropathy : Baclofen - hyperlipidemia: Continue Crestor, aspirin - essential hypertension: Continue Cozaar Diet: diabetic diet DVT prophylaxis: Lovenox Code status: Full code Disposition: Pending clinical course, transfer to med/surg Time Spent With Patient Time with patient: 25 - 35 minutes Subjective Date/time seen: 02/09/22 18:48 Patient seen examined. She appears to be volume overloaded which we will continue diuresis. Her baseline is pretty significant oxygen requirements of 4 L at rest and 6 L with activity. Last night she was not on BiPAP she states her home setting is 19/05. Patient is clinically stable and we will downgrade her from IMU to [facility]. She has known pericardial effusion with no signs of tamponade. she denies fever, chills, nausea, vomiting, diarrhea. She endorses shortness of breath. Review of Systems Review of Systems: All systems reviewed & are unremarkable except as noted in HPI and below Exam Narrative: - GENERAL: Pleasant morbidly obese woman in respiratory distress - EYES: EOMI. Anicteric. - HENT: Moist mucous membranes. - LUNGS: diminished breath sounds, difficult to auscultate. labored respirations on 4 L of oxygen which is her home level. increased work of breathing - CARDIOVASCULAR: Regular rate and rhythm. No murmur. No JVD. - ABDOMEN: Soft, non-tender and non-distended. No palpable masses. - EXTREMITIES: 3+ nonpitting edema. Non-tender. - NEUROLOGIC: No focal neurological deficits. CN II-XII grossly intact. - PSYCHIATRIC: Awake, Alert and oriented x 3. Appropriate mood and affect. - SKIN: No rashes or lesions. Warm. - LYMPH: No cervical lymphadenopathy. Objective Data Vital Signs Vital Signs: Vital Signs - 24 hr 02/08/22 19:39 02/08/22 20:09 02/08/22 20:20 Temperature 36.5 C Pulse Rate 83 83 87 Respiratory Rate 20 20 30 H Blood Pressure 142/90 H 139/85 148/82 H Pulse Oximetry 98 97 96 02/08/22 22:00 02/08/22 23:40 02/09/22 00:00 Temperature 36.5 C Pulse Rate 88 88 91 Respiratory Rate 26 H Blood Pressure 132/68 Pulse Oximetry 93 02/09/22 02:00 02/09/22 04:00 02/09/22 04:35 Temperature 36.2 C L Pulse Rate 86 76 Respiratory Rate 22 H Blood Pressure 140/66 Pulse Oximetry 96 96 02/09/22 06:00 02/09/22 06:30 02/09/22 06:48 Temperature Pulse Rate 70 71 76 Res
[2022-02-09 18:56] LABS: Hemoglobin A1C 6.2 % (<5.7)
[2022-02-09 20:51] LABS: Glucose Point of Care 445 mg/dl (65-105)
[2022-02-09] MEDS: INSULIN ASPART (*BKC) 100 UNITS/ML 8 UNITS SUB-Q (23:21)
[2022-02-10] VITALS (16 sets, daily range): BP systolic 122–152; BP diastolic 56–70; PULSE 66–93; RESP 19–24; TEMP 36.4–36.6; O2SAT 91–94
[2022-02-10] MEDS: methylPREDNISolone SOD SUCC 125 MG VIAL 60 MG IV PUSH ×4 (00:48→18:29)
--- NOTE | 2022-02-10 01:19 | PC.NURSE ---
Pain med, Farnam 7.5-325 mg one tab was given at 2019 by ZOIE Narvaez while KN was accidently still logged into the [employer] computer.
[2022-02-10] MEDS: HYDROcodone/acetaminophen (*CRX) 7.5-325 MG TABLET 1 TAB PO ×4 (02:22→21:56)
[2022-02-10] MEDS: LEVOTHYROXINE SODIUM 50 MCG TABLET PO (05:44)
[2022-02-10 06:35] LABS: Basophils Percent Auto 0.1 % (0.2-1.2); Hematocrit 41.9 % (37.0-47.0); Hemoglobin 13.4 g/dL (12.0-15.0); Immature Granulocyte Absolute 0.22 K/mm3 (0.00-0.031); Immature Granulocyte Percent A 0.9 % (0-0.5); Lymphocytes Percent Auto 3.8 % (18.3-44.2); Mean Corpuscular Hemoglobin 29.8 pg (26-34); Mean Corpuscular Volume 93.3 fl (80-100); Mean Platelet Volume 11.1 fl (7.4-10.4); Monocytes Percent Auto 4.1 % (2.6-8.5); Neutrophils Absolute Auto 21.3 K/mm3 (1.3-6.7); Neutrophils Percent Auto 91.1 % (45.5-73.1); Platelet Count Result 297 k/mm3 (150-375); Red Blood Count 4.49 M/mm3 (4.2-5.4); Red Cell Distribution Width 12.1 % (11.5-14.5); White Blood Count 23.4 K/mm3 (4.5-10.0)
[2022-02-10 06:44] LABS: Anion Gap 4 mmol/L (8-16); Blood Urea Nitrogen 18 mg/dL (7-17); Calcium 9.6 mg/dL (8.4-10.2); Carbon Dioxide 36 mmol/L (22-30); Chloride 94 mmol/L (98-107); Estimated CRCL calculation 136 ml/min; Estimated Glomerular Filt Rate > 60; Glucose 304 mg/dL (65-110); Magnesium 2.1 mg/dL (1.6-2.3); Potassium 4.1 mmol/L (3.4-5.0); Sodium 134 mmol/L (137-145)
[2022-02-10] MEDS: IPRATROPIUM BR 0.02% INH SOLN 0.5 MG/2.5 ML VIAL INHALATION ×4 (08:02→21:29)
[2022-02-10] MEDS: FLUTICASONE/SALMETEROL 230-21 MCG INHALER 1 PUFF 2 PUFF INHALATION ×2 (08:02→21:29)
[2022-02-10] MEDS: ALBUTEROL SULFATE NEB 2.5 MG/0.5 ML INH INHALATION ×4 (08:02→21:29)
[2022-02-10 08:28] LABS: Glucose Point of Care 318 mg/dl (65-105)
[2022-02-10] MEDS: ENOXAPARIN 40 MG/0.4 ML SYRINGE SUB-Q (08:47)
[2022-02-10] MEDS: ESCITALOPRAM OXALATE 10 MG TABLET PO (08:48)
[2022-02-10] MEDS: BACLOFEN 10 MG TABLET PO ×3 (08:48→17:36)
[2022-02-10] MEDS: PANTOPRAZOLE 40 MG TABLET PO ×2 (08:48→18:30)
[2022-02-10] MEDS: buPROPion HCL XL (24 HR) 150 MG TABCR PO (08:48)
[2022-02-10] MEDS: ALPRAZolam (*CRX) 0.5 MG TABLET PO ×3 (08:48→17:36)
[2022-02-10] MEDS: LOSARTAN POTASSIUM 100 MG TABLET PO (08:48)
[2022-02-10] MEDS: ROFLUMILAST 500 MCG TABLET PO (08:48)
[2022-02-10] MEDS: FUROSEMIDE INJ 40 MG/4 ML VIAL IV PUSH ×2 (08:48→18:28)
[2022-02-10] MEDS: ASPIRIN 81 MG ENTERIC TABLET PO (08:48)
[2022-02-10] MEDS: ROSUVASTATIN 10 MG TABLET 20 MG PO (08:48)
[2022-02-10] MEDS: INSULIN ASPART (*BKC) 100 UNITS/ML SUB-Q ×3 (08:51→17:29)
[2022-02-10 11:55] LABS: Glucose Point of Care 398 mg/dl (65-105)
--- NOTE | 2022-02-10 12:03 | PM.CNCAR ---
Assessment and Plan Additional Plan Assessment SOB likely related to COPD exacerbation. Pericardial effusion with no clinical signs of tamponade Plan TTE and further evaluation afterwards . History of Present Illness History of Present Illness Consult date/time: 02/10/22 12:03 Consult reason: Other (percardial effusion ) Reason For Visit: chest pain Narrative: 61 Yrs old female with HX of COPD on home O2, presented with 2 weeks Hx of progressive SOB, present with mild activity and rest, associated with sever cough, dry, with LE swelling, in ER she noted to have pericardil effusion in CT scan. Review of Systems Review of Systems: All systems reviewed & are unremarkable except as noted in HPI and below PMFSH Past Medical History Medical History (Updated 02/09/22 @ 03:11 by Marietta Smith MD) Bipolar disorder Chronic respiratory failure with hypoxia and hypercapnia On chronic home O2 since 2012. With history of intubation November 2018 due to influenza associated pneumonia COPD (chronic obstructive pulmonary disease) Severe obstructive ventilatory disease noted on PFTs 02/2021 Diabetes mellitus Diabetic neuropathy Diastolic CHF Essential hypertension GERD (gastroesophageal reflux disease) With distant history of GI bleed Hyperlipidemia Hypothyroidism Kidney stones Major depressive disorder Migraines Moderate pulmonary hypertension Noted on cardiac catheterization April 2020 Normal colonoscopy (~2016) Obesity, morbid, BMI 50 or higher Obstructive sleep apnea (~2016) Uses CPAP of 13 even though her BP polysomnogram in 2016 demonstrated no evidence of obstructive sleep apnea. Oxygen dependent 3L Surgical History Surgical History (Updated 10/03/21 @ 22:46 by Megha Nicole DO) History of History of cardiac catheterization (04/2020) Mild coronary artery disease of ostial and proximal left circumflex, diffuse plaquing of the obtuse marginal 2 History of dilation and curettage History of laparoscopy History of tonsillectomy History of tubal ligation Status post cataract extraction and insertion of intraocular lens of left eye Family History Family History Father Cerebrovascular accident Mother Family history of malignant neoplasm of ovary Social History Social History Social History: She lives in her own apartment with her 19-year-old grandson. She smoked between 1-3 packs of cigarettes per day for 48 years. She quit smoking in November 2015. 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 Primary care physician: Dr. Kalpesh Carr Code status: Full code Surrogate decision maker: Sister Smoking packs per day: 1 Smoking cigarettes per day: 20.0 Years smoked: 48 Smoking pack-years: 48.00 Smoking status: Former smoker Second hand tobacco smoke exposure: Yes Alcohol intake: never Substance use: never Last use: 04/14/20 Gender identity (if verbalized by the patient): Female Spiritual care concerns: No Meds Home Medications and Allergies Home Medications Medication Instructions Recorded Confirmed Type Breo Ellipta 1 inh INHALATION DAILY 04/24/20 02/08/22 History Daliresp 500 mcg PO DAILY 04/24/20 02/08/22 History Excedrin Migraine 2 tab-cap BYMOUTH TID PRN 04/24/20 02/08/22 History Spiriva with HandiHaler 1 cap INHALATION DAILY 04/24/20 02/08/22 History albuterol sulfate [Ventolin HFA] 2 puff INHALATION Q6H 04/24/20 02/08/22 History alprazolam 0.5 mg PO TID 04/24/20 02/08/22 History baclofen 10 mg PO TID 04/24/20 02/08/22 History bupropion HCl 150 mg PO DAILY 04/24/20 02/08/22 History ergocalciferol (vitamin D2) 1 unit PO WEEKLY 04/24/20 02/08/22 History [Vitamin D2] escitalopram oxalate 10 mg PO DAILY 04/24/20 02/08/22 History furosemide 40 mg PO BID 04/24/20 02/08/22 History hydrocodone-acetaminophe
[2022-02-10] MEDS: guaiFENesin 600 MG/DEXTROMETHORPHAN 30 MG SR TAB 12 HR 1 TAB PO ×2 (12:42→22:03)
--- NOTE | 2022-02-10 14:37 | PC.NURSE ---
SBAR faxed to 3 med-surg at [phone].
--- NOTE | 2022-02-10 15:11 | PC.NURSE ---
Report given to ZOIE Sorto with 3 med-surg at 1511. Patient to go to room 330.
--- NOTE | 2022-02-10 15:40 | PC.NURSE ---
Patient transferred from IMU to Room 330. Patient is in stable condition.
[2022-02-10 17:32] LABS: Glucose Point of Care 398 mg/dl (65-105)
--- NOTE | 2022-02-10 17:49 | PM.IMPN ---
Progress Note: A&P Assessment and Plan (1) Chest pain: Code(s): R07.9 - Chest pain, unspecified Status: Acute (2) Epistaxis: Code(s): R04.0 - Epistaxis Status: Acute (3) Pericardial effusion: Code(s): I31.3 - Pericardial effusion (noninflammatory) Status: Acute (4) COPD (chronic obstructive pulmonary disease): Code(s): J44.9 - Chronic obstructive pulmonary disease, unspecified Status: Acute (5) Chest pain: Code(s): R07.9 - Chest pain, unspecified Status: Acute Additional Plan # acute respiratory failure with chronic hypoxia # congestive heart failure with preserved ejection fraction # moderate pulmonary hypertension # Likely chronic pericardial effusion -patient chronically on 4 L oxygen rest, 6 L with activity - patient and increased work of breathing, will continue diuresis - she appears volume overloaded continue Lasix IV b.i.d. 40 mg, net -1 L fluid output, will continue diuresis - likely has COPD exacerbation, patient states since her COVID 19 diagnosis in October she has not been back to her normal function. She feels much better with the steroids, will keep steroids 60 mg q.6 hours for now ( Patient was reluctant to start weaning today) - Will give azithromycin for anti-inflammatory properties - start scheduled Mucinex - will stop telemetry - awaiting echocardiogram for further recommendations from Cardiology for the pericardial effusion. patient is not any signs of tamponade at this time # COPD/ emphysema - continue umeclidinium, Daliresp, fluticasone/salmeterol, albuterol rescue inhaler - steroids: Solu-Medrol 60 mg q.6 hours - nebs: Continue DuoNebs q.i.d. - adding azithromycin # history of COVID-19 - was diagnosed in October of this year, patient states she has not been back to her normal breathing function # epistaxis - patient states she has ear bleeding postnasal drip - will consult ENT however her hemoglobin is stable #other chronic conditions -obstructive sleep apnea: continue home BiPAP 19/05 - hypothyroidism: Continue Synthroid - type 2 diabetes: Diabetic diet, Accu-Cheks a.c. HS, sliding scale insulin, hypoglycemia protocol, Hgb A1c 6.2 - bipolar disorder: Lexapro, bupropion, Xanax -GERD: Protonix -diabetic neuropathy : Baclofen - hyperlipidemia: Continue Crestor, aspirin - essential hypertension: Continue Cozaar Diet: diabetic diet DVT prophylaxis: Lovenox Code status: Full code Disposition: Pending clinical course, transfer to med/surg Time Spent With Patient Time with patient: 15 - 25 minutes Subjective Date/time seen: 02/10/22 17:49 Patient seen examined. She feels better today than yesterday. She is moving more air however still tachypneic. She has net -1 L fluid output however unchanged swelling. Will continue steroids and diuresis. we may need to start weaning steroids tomorrow. Patient complains of epistaxis and postnasal dripping on the right side, consulting ENT. Patient has significant cough as well, will start Mucinex b.i.d.. Patient denies fever, chills, nausea, vomiting or diarrhea. She endorses cough, dyspnea. Review of Systems Review of Systems: All systems reviewed & are unremarkable except as noted in HPI and below Exam Narrative: - GENERAL: Pleasant morbidly obese woman in respiratory distress - EYES: EOMI. Anicteric. - HENT: Moist mucous membranes. - LUNGS: diminished breath sounds, difficult to auscultate. labored respirations on 4 L of oxygen which is her home level. increased work of breathing - CARDIOVASCULAR: Regular rate and rhythm. No murmur. - ABDOMEN: Soft, non-tender and non-distended. No palpable masses. - EXTREMITIES: 3+ nonpitting edema. Non-tender. unchanged swelling - NEUROLOGIC: No focal neurological deficits. CN II-XII grossly intact. - PSYCHIATRIC: Awake, Alert and oriented x 3. Appropriate mood and affect. - SKIN: No rashes or lesions. Warm. - LYMPH: No cervical lymphadenopathy
[2022-02-10] MEDS: AZITHROMYCIN 250 MG TABLET 500 MG PO (18:29)
[2022-02-10] MEDS: VERAPAMIL HCL 180 MG TABLET ER 360 MG PO (22:00)
[2022-02-11] VITALS (14 sets, daily range): BP systolic 128–136; BP diastolic 48–57; PULSE 54–92; RESP 19–22; TEMP 35.7–36.9; O2SAT 92–96
--- NOTE | 2022-02-11 | ECHO_ITS ---
Patient Info Name: Ronel Salinas Age: 61 years : 1960 Gender: Female Ht: 63 in Wt: 294 lbs BSA: 2.52 m2 HR: 54 bpm BP: 129 / 57 mmHg Heart Rhythm: Sinus Rhythm Technical Quality: Poor Exam Date: 02/11/2022 4:00 PM Exam Location: [facility] Pulmonary Exam Room: 330 Patient Status: Inpatient Admit Date: 02/11/2022 Staff Ordering Physician: Marietta Smith MD Server: Jessica Joseph RDCS Attending Provider: Pedro Shipman M.A., MD Referring Physician: Sarah OAKES; Exam Type: CA echo dop color flow w con Study Info Indications - pericardial effusion Complete two-dimensional, color flow and Doppler transthoracic echocardiogram is performed with contrast to opacify the left ventricle and to improve the deliniation of the left ventricle endocardial borders. Contrast/Agitated Saline Contrast/Ag. Saline: Definity Amount: 2.00 ml Administered By: Jessica Joseph [facility] Existing IV Access: Yes IV Access Condition: patent with no signs of infiltration Reason for Poor Study: patient body habitus Summary 1. Technically difficult study with limited views. Regional wall motion assessment limited despite administration of Definity contrast. 2. Left ventricular chamber dimension is normal. 3. Left ventricular systolic function is normal, estimated at 65-70%. 4. There is mildly increased left ventricular wall thickness. 5. The left ventricular diastolic function is grade I diastolic dysfunction. 6. There is no aortic valve stenosis. 7. There is mild mitral valve regurgitation. 8. Mild pulmonary hypertension, estimated pulmonary arterial systolic pressure is 36 mmHg. 9. There is trace tricuspid valve regurgitation. 10. There is a moderate to large pericardial effusion up to 1.8 cm anteriorly with fibrous material within the pericardial space. No evidence for tamponade physiology of the limited assessment given poor visualization of the pericardium in several views and right-sided chambers. No invagination of the right atrial free wall noted. 11. Normal inferior vena cava with >50% collapse upon inspiration consistent with normal right atrial pressure, 5 mmHg. Left Ventricle Technically difficult study with limited views. Regional wall motion assessment limited despite administration of Definity contrast. Left ventricular chamber dimension is normal. Left ventricular systolic function is normal, estimated at 65-70%. There is mildly increased left ventricular wall thickness. The left ventricular diastolic function is grade I diastolic dysfunction. Right Ventricle Right ventricular chamber dimension is not well visualized. Left Atria Left atrial chamber dimension is mildly enlarged. Right Atria Right atrial chamber dimension is mildly enlarged. Aortic Valve The aortic valve is not well visualized. There is no aortic valve stenosis. There is no aortic valve regurgitation. Pulmonic Valve The pulmonic valve is not well visualized. Mitral Valve The mitral valve has normal leaflets. There is mild mitral valve regurgitation. The mitral valve annulus is moderately calcified. Tricuspid Valve The tricuspid valve leaflets are not well visualized. There is trace tricuspid valve regurgitation. Mild pulmonary hypertension, estimated pulmonary arterial systolic pressure is 36 mmHg. Pericardium/Pleural The pericardium appears normal. There is a moderate to large pericardial effusion up to 1.8 cm ante
[2022-02-11] MEDS: INSULIN ASPART (*BKC) 100 UNITS/ML 16 UNITS SUB-Q ×2 (03:06→23:21)
[2022-02-11] MEDS: ACETAMINOPHEN/ASPIRIN/CAFFEINE 250-250-65 MG TABLET 2 TABLET BY MOUTH (03:08)
--- NOTE | 2022-02-11 03:13 | PCRCNOTE ---
Pt uses the BiPAP independently. Both she and the nurse report that she has used it off and on throughout the night. It is currently on standby but is ready for use with O2 bled in and water in the humidifier.
[2022-02-11] MEDS: methylPREDNISolone SOD SUCC 125 MG VIAL 60 MG IV PUSH ×3 (03:44→13:25)
[2022-02-11 05:41] LABS: Glucose Point of Care 440 mg/dl (65-105)
[2022-02-11 05:41] LABS: Glucose Point of Care 429 mg/dl (65-105)
[2022-02-11 06:36] LABS: Hemoglobin 13.1 g/dL (12.0-15.0); Mean Corpuscular Hemoglobin 30.1 pg (26-34); Mean Corpuscular Volume 94.3 fl (80-100); Mean Platelet Volume 11.3 fl (7.4-10.4); Platelet Count Result 351 k/mm3 (150-375); Red Blood Count 4.35 M/mm3 (4.2-5.4); Red Cell Distribution Width 12.2 % (11.5-14.5); White Blood Count 25.2 K/mm3 (4.5-10.0)
[2022-02-11 07:02] LABS: Anion Gap 4 mmol/L (8-16); Blood Urea Nitrogen 34 mg/dL (7-17); Calcium 9.4 mg/dL (8.4-10.2); Carbon Dioxide 37 mmol/L (22-30); Chloride 92 mmol/L (98-107); Estimated CRCL calculation 101 ml/min; Estimated Glomerular Filt Rate > 60; Glucose 311 mg/dL (65-110); Potassium 4.8 mmol/L (3.4-5.0); Sodium 133 mmol/L (137-145)
[2022-02-11 07:36] LABS: Glucose Point of Care 302 mg/dl (65-105)
[2022-02-11] MEDS: LEVOTHYROXINE SODIUM 50 MCG TABLET PO (08:01)
[2022-02-11] MEDS: INSULIN ASPART (*BKC) 100 UNITS/ML SUB-Q ×2 (08:25→12:00)
[2022-02-11] MEDS: FUROSEMIDE INJ 40 MG/4 ML VIAL IV PUSH ×2 (08:36→17:06)
[2022-02-11] MEDS: ALPRAZolam (*CRX) 0.5 MG TABLET PO ×2 (08:36→17:06)
[2022-02-11] MEDS: HYDROcodone/acetaminophen (*CRX) 7.5-325 MG TABLET 1 TAB PO ×3 (08:36→23:07)
[2022-02-11] MEDS: ERGOCALCIFEROL 50,000 UNIT CAPSULE 50000 UNITS PO (08:37)
[2022-02-11] MEDS: BACLOFEN 10 MG TABLET PO ×3 (08:37→17:36)
[2022-02-11] MEDS: ENOXAPARIN 40 MG/0.4 ML SYRINGE SUB-Q (08:37)
[2022-02-11] MEDS: LOSARTAN POTASSIUM 100 MG TABLET PO (08:37)
[2022-02-11] MEDS: ASPIRIN 81 MG ENTERIC TABLET PO (08:38)
[2022-02-11] MEDS: AZITHROMYCIN 250 MG TABLET 500 MG PO (08:38)
[2022-02-11] MEDS: buPROPion HCL XL (24 HR) 150 MG TABCR PO (08:38)
[2022-02-11] MEDS: ESCITALOPRAM OXALATE 10 MG TABLET PO (08:38)
[2022-02-11] MEDS: PANTOPRAZOLE 40 MG TABLET PO ×2 (08:38→17:07)
[2022-02-11] MEDS: guaiFENesin 600 MG/DEXTROMETHORPHAN 30 MG SR TAB 12 HR 1 TAB PO ×2 (08:39→20:25)
[2022-02-11] MEDS: ROSUVASTATIN 10 MG TABLET 20 MG PO (08:39)
[2022-02-11] MEDS: ROFLUMILAST 500 MCG TABLET PO (08:40)
[2022-02-11] MEDS: ALBUTEROL SULFATE NEB 2.5 MG/0.5 ML INH INHALATION ×4 (08:50→21:06)
[2022-02-11] MEDS: FLUTICASONE/SALMETEROL 230-21 MCG INHALER 1 PUFF 2 PUFF INHALATION ×2 (08:50→21:05)
[2022-02-11] MEDS: IPRATROPIUM BR 0.02% INH SOLN 0.5 MG/2.5 ML VIAL INHALATION ×4 (08:50→21:06)
[2022-02-11] MEDS: UMECLIDINIUM BROMIDE 62.5 MCG ELLIPTA 1 PUFF INHALATION (08:52)
[2022-02-11 09:23] LABS: Appearance Urine Cloudy (Clear); Bilirubin Urine Negative (Negative); Blood Urine 1+ (Negative); Color Urine Yellow (Yellow); Glucose Urine UA Negative (Negative); Ketones Urine Negative (Negative); Leukocyte Esterase Ur Trace LEU/UL (Negative); Nitrate Urine Negative (Negative); Protein Urine Trace mg/dL (Negative); Specific Grav Ur >= 1.030 (1.001-1.035); Urobilinogen Urine 0.2 mg/dL (<2.0)
[2022-02-11 09:27] LABS: Mucus Urine Rare /lpf; RBC Urine 21-50 /hpf (0-2); Squamous Epithelial Cell Urine Occasional /hpf (Few)
[2022-02-11 09:36] LABS: Add Urine Microscopic? YES
[2022-02-11 11:30] LABS: Glucose Point of Care 377 mg/dl (65-105)
--- NOTE | 2022-02-11 11:51 | PM.PNCARD ---
Progress Note: A&P Assessment and Plan (1) Pericardial effusion: Code(s): I31.3 - Pericardial effusion (noninflammatory) Status: Acute Assessment and Plan: Very unlikely be involved with present admission. History of small pericardial effusion by CT September 2021. Moderate by CTA this admission. 2D echo pending. Recommendation follow. No hemodynamic suggestion of tamponade physiology. Most likely incidental finding with chronic pericardial effusion. Lengthy discussion held with the patient. All questions answered to her satisfaction. (2) Acute on chronic respiratory failure with hypoxia and hypercapnia: Code(s): J96.21 - Acute and chronic respiratory failure with hypoxia; J96.22 - Acute and chronic respiratory failure with hypercapnia Status: Acute Assessment and Plan: Per primary service. Chronic home O2 use with severe underlying COPD, BiPAP with COPD exacerbation (3) Acute exacerbation of chronic obstructive pulmonary disease (COPD): Code(s): J44.1 - Chronic obstructive pulmonary disease with (acute) exacerbation Status: Acute Assessment and Plan: Bronchodilator therapy antibiotics O2 and supportive care per pulmonology and primary service. (4) Diastolic CHF: Qualifiers: Heart failure chronicity: acute on chronic Qualified Code(s): I50.33 - Acute on chronic diastolic (congestive) heart failure Code(s): I50.30 - Unspecified diastolic (congestive) heart failure Status: Acute Assessment and Plan: Mild contribution continue IV Lasix today, will assess transition to oral regimen tomorrow as appropriate. Accurate input and output, daily weight. Lifestyle modification, low-sodium intake. Monitor renal function electrolytes. (5) Chest pain: Qualifiers: Chest pain type: other chest pain Qualified Code(s): R07.89 - Other chest pain Code(s): R07.9 - Chest pain, unspecified Status: Acute Assessment and Plan: Atypical most likely musculoskeletal/pleuritic with suggestion of spastic component unlikely to be secondary to myocardial ischemia. She remains on aspirin daily, clinical indication remains uncertain. (6) Hypertension: Code(s): I10 - Essential (primary) hypertension Status: Acute Assessment and Plan: Fair control, variable. Remains on losartan 100 mg daily. Verapamil may be contributing to lower extremity edema as well. Subjective Date/time seen: Date of service: 02/11/22 11:51 Follow-up for pericardial effusion, chest pain, shortness of breath Thin little better but still notes intermittent chest pain sounds spastic acute, sharp worse with deep breathing, ongoing shortness of breath with coughing resulting in significant wheezing. Very long discussion held with patient with regards to her history of COVID, pneumonia, COPD, lower extremity edema with legs in dependent position resolving overnight history of nitroglycerin use for chest pain follow-up with her surveyor hydrographic and non destructive evaluation specialist. She also admits she was never the same after having COVID in his chronically felt unwell with onset of chest pain since then including memory loss, difficulty finding her words at times. Review of Systems Review of Systems: All systems reviewed & are unremarkable except as noted in HPI and below Constitutional: Constitutional: Reports as per HPI, Reports no additional constitutional complaints, Reports fatigue, Reports lethargy and Reports weakness Eyes: Eyes: Reports as per HPI and Reports no additional eye complaints ENT: Reports system reviewed and no additional complaints, except as documented and Reports as per HPI Cardiovascular: Cardiovascular: Reports as per HPI, Reports no additional cardiovascular complaints, Reports chest pain, Reports pedal edema, Reports leg edema and Denies palpitations Respiratory: Respiratory: Reports as per HPI, Reports no additional respiratory complaints, Reports cou
--- NOTE | 2022-02-11 15:24 | PM.IMPN ---
Progress Note: A&P Assessment and Plan (1) Chest pain: Qualifiers: Chest pain type: other chest pain Qualified Code(s): R07.89 - Other chest pain Code(s): R07.9 - Chest pain, unspecified Status: Acute Assessment and Plan: Pleuritic in nature. CXR showing CMG. CTA chest showing mild pulmonary edema and moderate-sized pericardial effusion. Troponin x3 negative. EKG with no acute ST segment or T-wave changes. Cardiology consulted. Chest pain better with treatment for COPD and CHF exacerbation. Currently on 4L. (2) Diastolic CHF: Qualifiers: Heart failure chronicity: acute on chronic Qualified Code(s): I50.33 - Acute on chronic diastolic (congestive) heart failure Code(s): I50.30 - Unspecified diastolic (congestive) heart failure Status: Acute Assessment and Plan: Patient presents with SOB but no change in her chronic hypoxia. CTA does show mild pulmonary edema and she was also having pedal edema. Echo showing EF 65-70% with Grade I diastolic dysfunction. She is -2.7L but weight is about the same. Renal function okay. Continue IV Lasix today but change to oral tomorrow. (3) COPD (chronic obstructive pulmonary disease): Code(s): J44.9 - Chronic obstructive pulmonary disease, unspecified Status: Acute Assessment and Plan: COPD with exacerbation. On Solu-Medrol and nebs. No wheezing appreciated ans probably more CHF then COPD. No wheezing noted on admission exam in ED either. Will stop Solu-Medrol and follow. (4) Chronic respiratory failure: Code(s): J96.10 - Chronic respiratory failure, unspecified whether with hypoxia or hypercapnia Status: Acute Assessment and Plan: Patient on 4L at rest and 6L with exertion. She was on 4L on admission and has remained stable on her current oxygen requirement. Humidify O2. (5) Epistaxis: Code(s): R04.0 - Epistaxis Status: Acute Assessment and Plan: Patient was having epistaxis. ENT was consulted. (6) Obstructive sleep apnea: Onset Date: ~2016 Code(s): G47.33 - Obstructive sleep apnea (adult) (pediatric) Status: Acute Assessment and Plan: BiPAP at bedside. She states she is compliant. Continue the same. (7) Diabetes mellitus: Code(s): E11.9 - Type 2 diabetes mellitus without complications Status: Acute Assessment and Plan: A1c 6.2. The patient's blood glucose was reviewed on 02/11 Glucose uncontrolled related to steroids. Continue AccuCheks covering with sliding scale. Hypoglycemia protocol available as needed. Continue current medications and stop steroids. (8) Pericardial effusion: Code(s): I31.3 - Pericardial effusion (noninflammatory) Status: Acute Assessment and Plan: CTA chest showing moderate-sized pericardial effusion. Echo showing normal pericardium. (9) Morbid obesity: Code(s): E66.01 - Morbid (severe) obesity due to excess calories Status: Acute Assessment and Plan: BMI 52.7. Healthy lifestyle choice recommended. Communications Instructor consult (10) DVT prophylaxis: Code(s): Z29.9 - Encounter for prophylactic measures, unspecified Status: Acute Assessment and Plan: Lovenox Additional Plan Leukocytosis - noted. Elevated frequently while hospitalized but possibly related to steroids. No lymphocytosis to suggest CLL. Follow off steroids and consider further workup if persistent. Subjective Date/time seen: 02/11/22 15:24 Interval history: 61yo female with chronic respiratory failure from COPD, HAO, DM and CHF here for shortness of breath Assuming care. Chart reviewed. Patient was complained dizziness prior to admission that she describes as lightheadedness. This symptom has improved. She also was complaining of pleuritic chest pain which has all but resolved now. Another complaint was increasing lower extremity edema. With the
[2022-02-11 16:20] LABS: Glucose Point of Care 451 mg/dl (65-105)
[2022-02-11] MEDS: PERFLUTREN LIPID MICROSPHERES 1.5 ML VIAL DILUTED TO 10 ML TOTAL VOLUME IV PUSH (16:30)
[2022-02-11] MEDS: INSULIN ASPART (*BKC) 100 UNITS/ML 12 UNITS SUB-Q (16:58)
--- NOTE | 2022-02-11 18:15 | PC.NURSE ---
Called Dr. Kelly at 1640 and reported blood sugar of 451, Dr. Kelly gave verbal telephone order to give Novolog 12 units.
--- NOTE | 2022-02-11 18:30 | WPDPROCEDUR ---
Procedures Other Procedures Procedure 1: Other Procedure: Procedures bilateral nasal endoscopy. Afrin lidocaine applied. 0 degree endoscope utilized. Bilateral nasal passages viewed no telangiectatic Vaseline vessels somewhat dry a folliculitis type appearance. Patient tolerated the procedure well there septal deviation and turbinate hypertrophy which are not necessarily relevant to the patient's issue of epistaxis.
--- NOTE | 2022-02-11 18:31 | WPDCN ---
Assessment and Plan Assessment and plan (1) Right-sided epistaxis: Code(s): R04.0 - Epistaxis Status: Acute Assessment and Plan: Rhino rocket left at bedside. Patient reports if she bleeds she is happy to attempt to place this herself. Recommend mupirocin ointment over Neosporin. Ordered. Patient can use p.r.n. at bedside would encourage frequent usage throughout day. Nasal saline also ordered. Patient should use throughout the day. Follow-up with ENT in clinic for further evaluation treatment better lytes better endoscopic equipment etc.. (2) Nasal folliculitis: Code(s): L73.9 - Follicular disorder, unspecified Status: Acute HPI Data of Consult Date/Time: 02/11/22 18:31 Requesting Physician: Pedro Shipman MD Primary Care Provider: Kalpesh Carr, Consult Narrative Narrative: Ronel Salinas is a 61 year old female with a history of epistaxis patient is on blood thinners utilizes oxygen. Use this reports it is right-sided. ENT consult for further evaluation and treatment. Has not bled in about 36 hours. Review of Systems Review of Systems: All systems reviewed & are unremarkable except as noted in HPI and below PMFSH Past Medical History Medical History (Updated 02/11/22 @ 18:32 by Sebastian Nina MD) Bipolar disorder Chronic respiratory failure with hypoxia and hypercapnia On chronic home O2 since 2012. With history of intubation November 2018 due to influenza associated pneumonia COPD (chronic obstructive pulmonary disease) Severe obstructive ventilatory disease noted on PFTs 02/2021 Diabetes mellitus Diabetic neuropathy Diastolic CHF Essential hypertension GERD (gastroesophageal reflux disease) With distant history of GI bleed Hyperlipidemia Hypothyroidism Kidney stones Major depressive disorder Migraines Moderate pulmonary hypertension Noted on cardiac catheterization April 2020 Normal colonoscopy (~2016) Obesity, morbid, BMI 50 or higher Obstructive sleep apnea (~2017) Uses CPAP of 13 even though her BP polysomnogram in 2016 demonstrated no evidence of obstructive sleep apnea. Oxygen dependent 3L Surgical History Surgical History (Updated 10/03/21 @ 22:46 by Megha Nicole DO) History of History of cardiac catheterization (04/2020) Mild coronary artery disease of ostial and proximal left circumflex, diffuse plaquing of the obtuse marginal 2 History of dilation and curettage History of laparoscopy History of tonsillectomy History of tubal ligation Status post cataract extraction and insertion of intraocular lens of left eye Family History Family History Father Cerebrovascular accident Mother Family history of malignant neoplasm of ovary Social History Social History Social History: She lives in her own apartment with her 19-year-old grandson. She smoked between 1-3 packs of cigarettes per day for 48 years. She quit smoking in November 2015. 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 Primary care physician: Dr. Kalpesh Carr Code status: Full code Surrogate decision maker: Sister Smoking packs per day: 1 Smoking cigarettes per day: 20.0 Years smoked: 48 Smoking pack-years: 48.00 Smoking status: Former smoker Second hand tobacco smoke exposure: Yes Alcohol intake: never Substance use: never Last use: 04/14/20 Gender identity (if verbalized by the patient): Female Spiritual care concerns: No Meds Home Medications and Allergies Home Medications Medication Instructions Recorded Confirmed Type Breo Ellipta 1 inh INHALATION DAILY 04/24/20 02/08/22 History Daliresp 500 mcg PO DAILY 04/24/20 02/08/22 History Excedrin Migraine 2 tab-cap BYMOUTH TID PRN 04/24/20 02/08/22 History Spiriva with HandiHaler 1 cap INHALATION DAILY 04/24/20 02/08/22 His
[2022-02-11] MEDS: VERAPAMIL HCL 180 MG TABLET ER 360 MG PO (20:26)
[2022-02-12] VITALS (13 sets, daily range): BP systolic 119–182; BP diastolic 54–85; PULSE 71–99; RESP 17–22; TEMP 36–36.1; O2SAT 92–97
[2022-02-12 02:10] LABS: Glucose Point of Care 430 mg/dl (65-105)
[2022-02-12 02:10] LABS: Glucose Point of Care > 500 mg/dl (65-105)
[2022-02-12] MEDS: ACETAMINOPHEN/ASPIRIN/CAFFEINE 250-250-65 MG TABLET 2 TABLET BY MOUTH (04:46)
[2022-02-12] MEDS: LEVOTHYROXINE SODIUM 50 MCG TABLET PO (04:51)
[2022-02-12] MEDS: ALPRAZolam (*CRX) 0.5 MG TABLET PO ×3 (05:40→18:43)
[2022-02-12 06:22] LABS: Hematocrit 41.9 % (37.0-47.0); Hemoglobin 13.1 g/dL (12.0-15.0); Mean Corpuscular HGB Conc 31.3 g/dl (32-36); Mean Corpuscular Hemoglobin 29.4 pg (26-34); Mean Corpuscular Volume 93.9 fl (80-100); Mean Platelet Volume 10.9 fl (7.4-10.4); Platelet Count Result 380 k/mm3 (150-375); Red Blood Count 4.46 M/mm3 (4.2-5.4); Red Cell Distribution Width 12.1 % (11.5-14.5); White Blood Count 18.1 K/mm3 (4.5-10.0)
[2022-02-12 06:33] LABS: Anion Gap 4 mmol/L (8-16); Blood Urea Nitrogen 36 mg/dL (7-17); Carbon Dioxide 39 mmol/L (22-30); Chloride 92 mmol/L (98-107); Estimated CRCL calculation 116 ml/min; Estimated Glomerular Filt Rate > 60; Glucose 276 mg/dL (65-110); Potassium 4.2 mmol/L (3.4-5.0); Sodium 135 mmol/L (137-145)
[2022-02-12 07:55] LABS: Glucose Point of Care 243 mg/dl (65-105)
[2022-02-12] MEDS: ALBUTEROL SULFATE NEB 2.5 MG/0.5 ML INH INHALATION ×3 (08:09→19:32)
[2022-02-12] MEDS: IPRATROPIUM BR 0.02% INH SOLN 0.5 MG/2.5 ML VIAL INHALATION ×3 (08:09→19:32)
[2022-02-12] MEDS: FLUTICASONE/SALMETEROL 230-21 MCG INHALER 1 PUFF 2 PUFF INHALATION ×2 (08:10→19:32)
[2022-02-12] MEDS: UMECLIDINIUM BROMIDE 62.5 MCG ELLIPTA 1 PUFF INHALATION (09:00)
[2022-02-12] MEDS: INSULIN ASPART (*BKC) 100 UNITS/ML SUB-Q ×3 (09:54→18:43)
[2022-02-12] MEDS: HYDROcodone/acetaminophen (*CRX) 7.5-325 MG TABLET 1 TAB PO ×3 (09:55→22:10)
--- NOTE | 2022-02-12 09:55 | PCPTNOTE ---
received orders for PT eval: attempted 2x-this AM: 820 refused due to waiting for breakfast and just up to bathroom; at 10- OT with pt;
[2022-02-12] MEDS: ROSUVASTATIN 10 MG TABLET 20 MG PO (09:56)
[2022-02-12] MEDS: LOSARTAN POTASSIUM 100 MG TABLET PO (09:57)
[2022-02-12] MEDS: guaiFENesin 600 MG/DEXTROMETHORPHAN 30 MG SR TAB 12 HR 1 TAB PO ×2 (09:57→20:21)
[2022-02-12] MEDS: PANTOPRAZOLE 40 MG TABLET PO ×2 (09:57→18:45)
[2022-02-12] MEDS: buPROPion HCL XL (24 HR) 150 MG TABCR PO (09:57)
[2022-02-12] MEDS: ROFLUMILAST 500 MCG TABLET PO (09:57)
[2022-02-12] MEDS: FUROSEMIDE INJ 40 MG/4 ML VIAL IV PUSH ×2 (09:57→18:44)
[2022-02-12] MEDS: ASPIRIN 81 MG ENTERIC TABLET PO (09:57)
[2022-02-12] MEDS: ESCITALOPRAM OXALATE 10 MG TABLET PO (09:57)
[2022-02-12] MEDS: ENOXAPARIN 40 MG/0.4 ML SYRINGE SUB-Q (09:58)
--- NOTE | 2022-02-12 11:41 | PCDIET ---
Dietitian consult for obesity, CHF. See nutritional teaching intervention. Thank you for the consult.
[2022-02-12 11:52] LABS: Glucose Point of Care 354 mg/dl (65-105)
[2022-02-12] MEDS: BACLOFEN 10 MG TABLET PO ×2 (13:03→18:43)
--- NOTE | 2022-02-12 14:07 | PM.IMPN ---
Progress Note: A&P Assessment and Plan (1) Chest pain: Qualifiers: Chest pain type: other chest pain Qualified Code(s): R07.89 - Other chest pain Code(s): R07.9 - Chest pain, unspecified Status: Acute Assessment and Plan: Pleuritic in nature. CXR showing CMG. CTA chest showing mild pulmonary edema and moderate-sized pericardial effusion. Troponin x3 negative. EKG with no acute ST segment or T-wave changes. Cardiology consulted and appreciate their input. [place] that the chest pain related to COPD and CHF exacerbation. (2) Diastolic CHF: Qualifiers: Heart failure chronicity: acute on chronic Qualified Code(s): I50.33 - Acute on chronic diastolic (congestive) heart failure Code(s): I50.30 - Unspecified diastolic (congestive) heart failure Status: Acute Assessment and Plan: Patient presents with SOB but no change in her chronic hypoxia. CTA does show mild pulmonary edema and she was also having pedal edema. Echo showing EF 65-70% with Grade I diastolic dysfunction. She is -5.7L but weight is about the same. Renal function okay. Continue IV Lasix today but change to oral tomorrow. (3) COPD (chronic obstructive pulmonary disease): Code(s): J44.9 - Chronic obstructive pulmonary disease, unspecified Status: Acute Assessment and Plan: COPD with exacerbation. She was on Solu-Medrol and nebs. No wheezing appreciated and probably more CHF then COPD. No wheezing noted on admission exam in ED either. We stopped Solu-Medrol. (4) Chronic respiratory failure: Code(s): J96.10 - Chronic respiratory failure, unspecified whether with hypoxia or hypercapnia Status: Acute Assessment and Plan: Patient on 4L at rest and 6L with exertion. She was on 4L on admission and has remained stable on her current oxygen requirement. Follow (5) Epistaxis: Code(s): R04.0 - Epistaxis Status: Acute Assessment and Plan: Patient was having epistaxis. ENT was consulted and appreciate their input. Patient underwent a bilateral nasal endoscopy 02/11/22. No clear etiology of the epistaxis. Follow up in ENT clinic (6) Obstructive sleep apnea: Onset Date: ~2016 Code(s): G47.33 - Obstructive sleep apnea (adult) (pediatric) Status: Acute Assessment and Plan: BiPAPordered here. Continue the same. (7) Diabetes mellitus: Code(s): E11.9 - Type 2 diabetes mellitus without complications Status: Acute Assessment and Plan: A1c 6.2. The patient's blood glucose was reviewed on 02/12 Glucose uncontrolled related to steroids. Continue AccuCheks covering with sliding scale. Hypoglycemia protocol available as needed. Continue current medications. Resume metformin. Glucose should improve with time. Continue Diab diet. (8) Pericardial effusion: Code(s): I31.3 - Pericardial effusion (noninflammatory) Status: Acute Assessment and Plan: CTA chest showing moderate-sized pericardial effusion. Echo showing normal pericardium. (9) Morbid obesity: Code(s): E66.01 - Morbid (severe) obesity due to excess calories Status: Acute Assessment and Plan: BMI 52.7. Healthy lifestyle choice recommended. Field Representative/Health Education consulted (10) DVT prophylaxis: Code(s): Z29.9 - Encounter for prophylactic measures, unspecified Status: Acute Assessment and Plan: Lovenox Subjective Date/time seen: 02/12/22 14:07 Interval history: 61yo female with chronic respiratory failure from COPD, HAO, DM and CHF here for shortness of breath Working with therapy and feels her legs are weak. She still has the cough but SOB better. She checks her glucose at home regularly and it runs 120-160 mostly. Voiding since Howe removed. Exam Narrative: AF 96.8 182/85 82 20 93% 4L Gen - NARD sitting up in bed Chest - clear anteriorly and posteriorly. No wheezing. nml RR CV - RRR
--- NOTE | 2022-02-12 15:10 | PCPTNOTE ---
Attempted initial evaluation at 1510, hold per RN due to blood pressure concerns with out of bed mobility.
[2022-02-12 17:01] LABS: Glucose Point of Care 277 mg/dl (65-105)
[2022-02-12] MEDS: metFORMIN HCL 500 MG TABLET PO (18:44)
[2022-02-12] MEDS: VERAPAMIL HCL 180 MG TABLET ER 360 MG PO (20:20)
[2022-02-13] VITALS (15 sets, daily range): BP systolic 100–132; BP diastolic 69–72; PULSE 54–94; RESP 14–20; TEMP 35.4–36.4; O2SAT 94–98
[2022-02-13 00:28] LABS: Glucose Point of Care 314 mg/dl (65-105)
[2022-02-13] MEDS: HYDROcodone/acetaminophen (*CRX) 7.5-325 MG TABLET 1 TAB PO ×3 (04:42→23:12)
[2022-02-13 06:32] LABS: Hematocrit 43.8 % (37.0-47.0); Hemoglobin 13.2 g/dL (12.0-15.0); Mean Corpuscular HGB Conc 30.1 g/dl (32-36); Mean Corpuscular Hemoglobin 29.8 pg (26-34); Mean Corpuscular Volume 98.9 fl (80-100); Mean Platelet Volume 10.5 fl (7.4-10.4); Platelet Count Result 368 k/mm3 (150-375); Red Blood Count 4.43 M/mm3 (4.2-5.4); Red Cell Distribution Width 12.4 % (11.5-14.5); White Blood Count 12.1 K/mm3 (4.5-10.0)
[2022-02-13 06:57] LABS: Blood Urea Nitrogen 29 mg/dL (7-17); Calcium 8.7 mg/dL (8.4-10.2); Carbon Dioxide > 40 mmol/L (22-30); Chloride 92 mmol/L (98-107); Estimated CRCL calculation 89 ml/min; Estimated Glomerular Filt Rate > 60; Glucose 131 mg/dL (65-110); Sodium 140 mmol/L (137-145)
[2022-02-13] MEDS: LEVOTHYROXINE SODIUM 50 MCG TABLET PO (07:12)
[2022-02-13 08:07] LABS: Glucose Point of Care 115 mg/dl (65-105)
[2022-02-13] MEDS: ALBUTEROL SULFATE NEB 2.5 MG/0.5 ML INH INHALATION ×4 (08:44→20:56)
[2022-02-13] MEDS: FLUTICASONE/SALMETEROL 230-21 MCG INHALER 1 PUFF 2 PUFF INHALATION ×2 (08:45→20:57)
[2022-02-13] MEDS: IPRATROPIUM BR 0.02% INH SOLN 0.5 MG/2.5 ML VIAL INHALATION ×4 (08:45→20:57)
[2022-02-13] MEDS: UMECLIDINIUM BROMIDE 62.5 MCG ELLIPTA 1 PUFF INHALATION (08:45)
[2022-02-13] MEDS: LOSARTAN POTASSIUM 100 MG TABLET PO (09:25)
[2022-02-13] MEDS: ROFLUMILAST 500 MCG TABLET PO (09:25)
[2022-02-13] MEDS: guaiFENesin 600 MG/DEXTROMETHORPHAN 30 MG SR TAB 12 HR 1 TAB PO ×2 (09:25→23:13)
[2022-02-13] MEDS: metFORMIN HCL 500 MG TABLET PO ×3 (09:25→18:21)
[2022-02-13] MEDS: BACLOFEN 10 MG TABLET PO ×3 (09:25→18:21)
[2022-02-13] MEDS: ASPIRIN 81 MG ENTERIC TABLET PO (09:26)
[2022-02-13] MEDS: ROSUVASTATIN 10 MG TABLET 20 MG PO (09:26)
[2022-02-13] MEDS: ESCITALOPRAM OXALATE 10 MG TABLET PO (09:26)
[2022-02-13] MEDS: buPROPion HCL XL (24 HR) 150 MG TABCR PO (09:26)
[2022-02-13] MEDS: PANTOPRAZOLE 40 MG TABLET PO ×2 (09:26→18:22)
[2022-02-13] MEDS: ENOXAPARIN 40 MG/0.4 ML SYRINGE SUB-Q (09:27)
[2022-02-13] MEDS: FUROSEMIDE 40 MG TABLET PO ×2 (09:30→18:21)
[2022-02-13] MEDS: ALPRAZolam (*CRX) 0.5 MG TABLET PO ×3 (09:30→22:59)
[2022-02-13 11:31] LABS: Glucose Point of Care 147 mg/dl (65-105)
[2022-02-13 16:34] LABS: Glucose Point of Care 128 mg/dl (65-105)
--- NOTE | 2022-02-13 16:41 | ECG_ITS ---
Measurements Intervals [place] Rate: 108 P: OK: 0 QRS: 51 QRSD: 104 T: -73 QT: 364 QTc: 489 Interpretive Statements ATRIAL FIBRILLATION WITH RAPID VENTRICULAR RESPONSE NONSPECIFIC ST & T-WAVE ABNORMALITY- DIFFUSE LEADS BASELINE WANDER- AVR, AVL, AVF, V4-V6 ABNORMAL ECG Electronically Signed On 02-13-2022 19:39:18 CDT by Rodrick Magallanes D.O.
--- NOTE | 2022-02-13 17:10 | PM.IMPN ---
Progress Note: A&P Assessment and Plan (1) Atrial fibrillation: Code(s): I48.91 - Unspecified atrial fibrillation Status: Acute Assessment and Plan: Irregular on exam. EKG repeated now showing AFib with tachycardia. CTA negative fo PE on admission (02/08) and she has been on Lovenox so doubt PE. Will check dopplers to exclude DVT that was present on admission. AFib probably related to pulmonary disease. Place on tele. Check TSH. [id number] score 4 which requires anticoagulation. Add Eliquis. Notify Cardiology of the change. Echo already completed. (2) Chest pain: Qualifiers: Chest pain type: other chest pain Qualified Code(s): R07.89 - Other chest pain Code(s): R07.9 - Chest pain, unspecified Status: Acute Assessment and Plan: Pleuritic in nature. CXR showing CMG. CTA chest 02/08 showing no PE but mild pulmonary edema and moderate-sized pericardial effusion. Troponin x3 negative. EKG with no acute ST segment or T-wave changes. Cardiology consulted and appreciate their input. [place] that the chest pain related to COPD and CHF exacerbation; CP possibly related to AFib? (3) Diastolic CHF: Qualifiers: Heart failure chronicity: acute on chronic Qualified Code(s): I50.33 - Acute on chronic diastolic (congestive) heart failure Code(s): I50.30 - Unspecified diastolic (congestive) heart failure Status: Acute Assessment and Plan: Patient presents with SOB but no change in her chronic hypoxia. CTA does show mild pulmonary edema and she was also having pedal edema. Echo showing EF 65-70% with Grade I diastolic dysfunction. Renal function stable. Continue oral Lasix (4) COPD (chronic obstructive pulmonary disease): Code(s): J44.9 - Chronic obstructive pulmonary disease, unspecified Status: Acute Assessment and Plan: COPD with exacerbation. She was on Solu-Medrol and nebs. No wheezing appreciated and probably more CHF then COPD. No wheezing noted on admission exam in ED either. We stopped Solu-Medrol. Stable on her 4L. (5) Chronic respiratory failure: Code(s): J96.10 - Chronic respiratory failure, unspecified whether with hypoxia or hypercapnia Status: Acute Assessment and Plan: Patient on 4L at rest and 6L with exertion. She was on 4L on admission and has remained stable on her current oxygen requirement. Follow (6) Epistaxis: Code(s): R04.0 - Epistaxis Status: Acute Assessment and Plan: Patient was having epistaxis. ENT was consulted and appreciate their input. Patient underwent a bilateral nasal endoscopy 02/11/22. No clear etiology of the epistaxis. Follow up in ENT clinic. Monitor closely for recurrence since will be on antcoagulation. (7) Obstructive sleep apnea: Onset Date: ~2016 Code(s): G47.33 - Obstructive sleep apnea (adult) (pediatric) Status: Acute Assessment and Plan: BiPAP ordered here. Continue the same. (8) Diabetes mellitus: Code(s): E11.9 - Type 2 diabetes mellitus without complications Status: Acute Assessment and Plan: A1c 6.2. The patient's blood glucose was reviewed on 02/13 Glucose was uncontrolled related to steroids but better since steroids stopped. Continue AccuCheks covering with sliding scale. Hypoglycemia protocol available as needed. Continue current medications. (9) Pericardial effusion: Code(s): I31.3 - Pericardial effusion (noninflammatory) Status: Acute Assessment and Plan: CTA chest showing moderate-sized pericardial effusion. Echo showing a moderate to large pericardial effusion up to 1.8 cm anteriorly with fibrous material within the pericardial space. No evidence for tamponade physiology of the limited assessment given poor visualization of the pericardium in several views and right-sided chambers. No invagination of the right atrial free wall noted. Discuss with Cards about potenti
--- NOTE | 2022-02-13 18:23 | PC.NURSE ---
Pt requests to take Xanax closer to bedtime. Dose not given at this time.
[2022-02-13] MEDS: VERAPAMIL HCL 180 MG TABLET ER 360 MG PO (23:13)
[2022-02-14] VITALS (17 sets, daily range): BP systolic 87–162; BP diastolic 59–92; PULSE 61–91; RESP 14–22; TEMP 35.9–36.6; O2SAT 94–100
[2022-02-14] MEDS: APIXABAN 5 MG TABLET PO ×3 (00:59→21:05)
[2022-02-14] MEDS: HYDROcodone/acetaminophen (*CRX) 7.5-325 MG TABLET 1 TAB PO ×4 (02:49→21:53)
[2022-02-14 06:17] LABS: Glucose Point of Care 154 mg/dl (65-105)
[2022-02-14 06:24] LABS: Hematocrit 45.4 % (37.0-47.0); Hemoglobin 14.1 g/dL (12.0-15.0); Mean Corpuscular HGB Conc 31.1 g/dl (32-36); Mean Corpuscular Hemoglobin 29.8 pg (26-34); Mean Platelet Volume 10.4 fl (7.4-10.4); Platelet Count Result 383 k/mm3 (150-375); Red Blood Count 4.73 M/mm3 (4.2-5.4); Red Cell Distribution Width 12.3 % (11.5-14.5); White Blood Count 15.9 K/mm3 (4.5-10.0)
[2022-02-14 06:34] LABS: Alanine Aminotransferase 27 U/L (6-35); Albumin Level 3.4 g/dL (3.5-5.1); Alkaline Phosphatase 78 U/L (38-126); Aspartate Amino Transferase 16 U/L (14-36); Bilirubin,Total 0.3 mg/dL (0.2-1.3); Blood Urea Nitrogen 26 mg/dL (7-17); Calcium 8.3 mg/dL (8.4-10.2); Carbon Dioxide > 40 mmol/L (22-30); Chloride 90 mmol/L (98-107); Estimated CRCL calculation 80 ml/min; Estimated Glomerular Filt Rate > 60; Glucose 128 mg/dL (65-110); Magnesium 2.1 mg/dL (1.6-2.3); Phosphorus 5.3 mg/dL (2.5-4.5); Potassium 3.9 mmol/L (3.4-5.0); Sodium 136 mmol/L (137-145)
[2022-02-14] MEDS: LEVOTHYROXINE SODIUM 50 MCG TABLET PO (06:44)
[2022-02-14 08:27] LABS: Glucose Point of Care 125 mg/dl (65-105)
[2022-02-14] MEDS: PANTOPRAZOLE 40 MG TABLET PO ×2 (08:55→17:42)
[2022-02-14] MEDS: buPROPion HCL XL (24 HR) 150 MG TABCR PO (08:55)
[2022-02-14] MEDS: LOSARTAN POTASSIUM 100 MG TABLET PO (08:55)
[2022-02-14] MEDS: metFORMIN HCL 500 MG TABLET PO ×3 (08:55→17:42)
[2022-02-14] MEDS: ROFLUMILAST 500 MCG TABLET PO (08:55)
[2022-02-14] MEDS: FUROSEMIDE 40 MG TABLET PO ×2 (08:55→17:41)
[2022-02-14] MEDS: ROSUVASTATIN 10 MG TABLET 20 MG PO (08:56)
[2022-02-14] MEDS: guaiFENesin 600 MG/DEXTROMETHORPHAN 30 MG SR TAB 12 HR 1 TAB PO ×2 (08:56→21:06)
[2022-02-14] MEDS: ESCITALOPRAM OXALATE 10 MG TABLET PO (08:56)
[2022-02-14] MEDS: ASPIRIN 81 MG ENTERIC TABLET PO (08:56)
[2022-02-14] MEDS: ALPRAZolam (*CRX) 0.5 MG TABLET PO ×3 (09:00→21:53)
[2022-02-14] MEDS: BACLOFEN 10 MG TABLET PO ×3 (09:00→21:54)
[2022-02-14] MEDS: FLUTICASONE/SALMETEROL 230-21 MCG INHALER 1 PUFF 2 PUFF INHALATION ×2 (09:32→19:40)
[2022-02-14] MEDS: UMECLIDINIUM BROMIDE 62.5 MCG ELLIPTA 1 PUFF INHALATION (09:32)
[2022-02-14] MEDS: ALBUTEROL SULFATE NEB 2.5 MG/0.5 ML INH INHALATION ×3 (09:34→19:40)
[2022-02-14] MEDS: IPRATROPIUM BR 0.02% INH SOLN 0.5 MG/2.5 ML VIAL INHALATION ×3 (09:34→19:43)
--- NOTE | 2022-02-14 10:21 | PM.IMPN ---
Progress Note: A&P Assessment and Plan (1) Atrial fibrillation: Code(s): I48.91 - Unspecified atrial fibrillation Status: Acute Assessment and Plan: Irregular on cardiac exam. EKG repeated now showing AFib with tachycardia. CTA negative fo PE on admission (02/08) and she has been on Lovenox so doubt PE. LE Dopplers ordered to exclude DVT. AFib probably related to pulmonary disease. Continue tele. TSH normal. [id number] score 4 so Diaz added. Echo already completed and reviewed. Cardiology following and apprciate their input. Could be having orthostatic HoTN; she is on the higher dose of Cozaar as well which could be contributing. Check orthostatic vitals. Lower Cozaar to home dose. If not orthostatic, then will walk in [place] (2) Chest pain: Qualifiers: Chest pain type: other chest pain Qualified Code(s): R07.89 - Other chest pain Code(s): R07.9 - Chest pain, unspecified Status: Acute Assessment and Plan: Pleuritic in nature. CXR showing CMG. CTA chest 02/08 showing no PE but mild pulmonary edema and moderate-sized pericardial effusion. Troponin x3 negative. EKG with no acute ST segment or T-wave changes. Cardiology consulted and appreciate their input. Terrell that the chest pain related to COPD and CHF exacerbation; CP possibly related to AFib/RVR? (3) Diastolic CHF: Qualifiers: Heart failure chronicity: acute on chronic Qualified Code(s): I50.33 - Acute on chronic diastolic (congestive) heart failure Code(s): I50.30 - Unspecified diastolic (congestive) heart failure Status: Acute Assessment and Plan: Patient presents with SOB but no change in her chronic hypoxia. CTA does show mild pulmonary edema and she was also having pedal edema. Terrell patient with Acute on Chronic Diastolic CHF. Echo showing EF 65-70% with Grade I diastolic dysfunction. Renal function stable. Treated with IV Lasix but now changed to oral Lasix (4) COPD (chronic obstructive pulmonary disease): Code(s): J44.9 - Chronic obstructive pulmonary disease, unspecified Status: Acute Assessment and Plan: COPD with exacerbation. She was on Solu-Medrol and nebs. Terrell probably more CHF then COPD. Solu-Medrol stopped. Stable on her 4L. (5) Chronic respiratory failure: Code(s): J96.10 - Chronic respiratory failure, unspecified whether with hypoxia or hypercapnia Status: Acute Assessment and Plan: Patient on 4L at rest and 6L with exertion. She was on 4L on admission and has remained stable on her current oxygen requirement. Follow (6) Epistaxis: Code(s): R04.0 - Epistaxis Status: Acute Assessment and Plan: Patient was having epistaxis. ENT was consulted and appreciate their input. Patient underwent a bilateral nasal endoscopy 02/11/22. No clear etiology of the epistaxis. Follow up in ENT clinic. Monitor closely for recurrence since will be on antcoagulation. (7) Obstructive sleep apnea: Onset Date: ~2016 Code(s): G47.33 - Obstructive sleep apnea (adult) (pediatric) Status: Acute Assessment and Plan: BiPAP ordered here. Continue the same. (8) UTI (urinary tract infection): Code(s): N39.0 - Urinary tract infection, site not specified Status: Acute Assessment and Plan: UA noted. UCx growing Proteus sensitive to Rocephin. Continue Rocephin Day 3 (9) Diabetes mellitus: Code(s): E11.9 - Type 2 diabetes mellitus without complications Status: Acute Assessment and Plan: A1c 6.2. The patient's blood glucose was reviewed on 02/14 Glucose was uncontrolled related to steroids but better since steroids stopped. Continue AccuCheks covering with sliding scale. Hypoglycemia protocol available as needed. Continue current medications. (10) Pericardial effusion: Code(s): I31.3 - Pericardial effusion (noninflammatory) Status: Acute Assessment a
--- NOTE | 2022-02-14 10:30 | PM.PNCARD ---
Progress Note: A&P Assessment and Plan (1) Pericardial effusion: Code(s): I31.3 - Pericardial effusion (noninflammatory) <RICH Morfin - Last Filed: 02/14/22 11:56> Status: Acute <RICH Morfin - Last Filed: 02/14/22 11:56> Assessment and Plan: Very unlikely be involved with present admission. History of small pericardial effusion by CT September 2021. Moderate by CTA this admission. Echo showed moderate to large pericardial effusion with no evidence of tamponade. No hemodynamic suggestion of tamponade physiology. Most likely incidental finding with chronic pericardial effusion. 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 <RICH Morfin - Last Filed: 02/14/22 11:56> (2) Acute on chronic respiratory failure with hypoxia and hypercapnia: Code(s): J96.21 - Acute and chronic respiratory failure with hypoxia; J96.22 - Acute and chronic respiratory failure with hypercapnia <RICH Morfin - Last Filed: 02/14/22 11:56> Status: Acute <RICH Morfin - Last Filed: 02/14/22 11:56> Assessment and Plan: Per primary service. Chronic home O2 use with severe underlying COPD, BiPAP with COPD exacerbation <RICH Morfin - Last Filed: 02/14/22 11:56> (3) Acute exacerbation of chronic obstructive pulmonary disease (COPD): Code(s): J44.1 - Chronic obstructive pulmonary disease with (acute) exacerbation <RICH Morfin - Last Filed: 02/14/22 11:56> Status: Acute <RICH Morfin - Last Filed: 02/14/22 11:56> Assessment and Plan: Bronchodilator therapy antibiotics O2 and supportive care per pulmonology and primary service. <RICH Morfin - Last Filed: 02/14/22 11:56> (4) Diastolic CHF: Qualifiers: Heart failure chronicity: acute on chronic Qualified Code(s): I50.33 - Acute on chronic diastolic (congestive) heart failure <RICH Morfin - Last Filed: 02/14/22 11:56> Code(s): I50.30 - Unspecified diastolic (congestive) heart failure <RICH Morfin - Last Filed: 02/14/22 11:56> Status: Acute <RICH Morfin - Last Filed: 02/14/22 11:56> Assessment and Plan: Mild exacerbation. She has been transitioned to p.o. lasix at this point. Looks euvolemic on exam. Lifestyle modification, low-sodium intake. Monitor renal function electrolytes. <RICH Morfin - Last Filed: 02/14/22 11:56> (5) Chest pain: Qualifiers: Chest pain type: other chest pain Qualified Code(s): R07.89 - Other chest pain <RICH Morfin - Last Filed: 02/14/22 11:56> Code(s): R07.9 - Chest pain, unspecified <RICH Morfin - Last Filed: 02/14/22 11:56> Status: Acute <RICH Morfin - Last Filed: 02/14/22 11:56> Assessment and Plan: Atypical most likely musculoskeletal/pleuritic with suggestion of spastic component unlikely to be secondary to myocardial ischemia. She remains on aspirin daily, clinical indication remains uncertain. <RICH Morfin - Last Filed: 02/14/22 11:56> (6) Hypertension: Code(s): I10 - Essential (primary) hypertension <RICH Morfin - Last Filed: 02/14/22 11:56> Status: Acute <RICH Morfin - Last Filed: 02/14/22 11:56> Assessment and Plan: Fair control, variable. Remains on losartan 100 mg daily. Verapamil may be contributing to lower extremity edema as well. <RICH Morfin - Last Filed: 02/14/22 11:56> (7) Atrial fibrillation: Code(s): I48.91 - Unspecified atrial fibrillation <RICH Morfin - Last Filed: 02/14/22 11:56> Status: Acute <RICH Morfin - Last Filed: 02/14/22 11:56> Assessment and Plan: States she has known about a fast/abnormal heart rhythm but never diagnosed with atrial fibrillation. Found to
[2022-02-14 11:54] LABS: Glucose Point of Care 125 mg/dl (65-105)
[2022-02-14 16:50] LABS: Glucose Point of Care 123 mg/dl (65-105)
[2022-02-14] MEDS: METOPROLOL TARTRATE 12.5 MG TABLET PO (17:40)
[2022-02-14 22:27] LABS: Glucose Point of Care 176 mg/dl (65-105)
[2022-02-15] VITALS (12 sets, daily range): BP systolic 128–133; BP diastolic 61–74; PULSE 70–96; RESP 18–20; TEMP 35.8–37.1; O2SAT 94–97
[2022-02-15] MEDS: METOPROLOL TARTRATE 12.5 MG TABLET PO ×2 (01:00→08:51)
[2022-02-15] MEDS: LEVOTHYROXINE SODIUM 50 MCG TABLET PO (05:36)
[2022-02-15] MEDS: HYDROcodone/acetaminophen (*CRX) 7.5-325 MG TABLET 1 TAB PO ×2 (05:36→12:05)
[2022-02-15 08:30] LABS: Glucose Point of Care 120 mg/dl (65-105)
[2022-02-15 08:31] LABS: Basophils Percent Auto 0.2 % (0.2-1.2); Eosinophils Absolute Auto 0.5 K/mm3 (0-0.3); Eosinophils Percent Auto 3.1 % (0-4.4); Hematocrit 45.8 % (37.0-47.0); Hemoglobin 13.6 g/dL (12.0-15.0); Immature Granulocyte Absolute 0.12 K/mm3 (0.00-0.031); Immature Granulocyte Percent A 0.8 % (0-0.5); Lymphocytes Absolute Auto 3.03 K/mm3 (0.9-3.2); Lymphocytes Percent Auto 20.9 % (18.3-44.2); Mean Corpuscular HGB Conc 29.7 g/dl (32-36); Mean Corpuscular Hemoglobin 29.2 pg (26-34); Mean Corpuscular Volume 98.3 fl (80-100); Mean Platelet Volume 10.5 fl (7.4-10.4); Monocytes Absolute Auto 0.7 K/mm3 (0.1-0.6); Neutrophils Absolute Auto 10.1 K/mm3 (1.3-6.7); Platelet Count Result 394 k/mm3 (150-375); Red Blood Count 4.66 M/mm3 (4.2-5.4); Red Cell Distribution Width 12.2 % (11.5-14.5); White Blood Count 14.5 K/mm3 (4.5-10.0)
[2022-02-15] MEDS: FLUTICASONE/SALMETEROL 230-21 MCG INHALER 1 PUFF 2 PUFF INHALATION (08:40)
[2022-02-15] MEDS: ALBUTEROL SULFATE NEB 2.5 MG/0.5 ML INH INHALATION ×2 (08:40→12:51)
[2022-02-15] MEDS: UMECLIDINIUM BROMIDE 62.5 MCG ELLIPTA 1 PUFF INHALATION (08:40)
[2022-02-15] MEDS: IPRATROPIUM BR 0.02% INH SOLN 0.5 MG/2.5 ML VIAL INHALATION ×2 (08:40→12:51)
[2022-02-15] MEDS: metFORMIN HCL 500 MG TABLET PO ×2 (08:51→12:06)
[2022-02-15] MEDS: ALPRAZolam (*CRX) 0.5 MG TABLET PO ×2 (08:51→13:10)
[2022-02-15] MEDS: buPROPion HCL XL (24 HR) 150 MG TABCR PO (08:52)
[2022-02-15] MEDS: guaiFENesin 600 MG/DEXTROMETHORPHAN 30 MG SR TAB 12 HR 1 TAB PO (08:52)
[2022-02-15] MEDS: ROFLUMILAST 500 MCG TABLET PO (08:52)
[2022-02-15] MEDS: ROSUVASTATIN 10 MG TABLET 20 MG PO (08:52)
[2022-02-15] MEDS: PANTOPRAZOLE 40 MG TABLET PO (08:53)
[2022-02-15] MEDS: APIXABAN 5 MG TABLET PO (08:53)
[2022-02-15] MEDS: ASPIRIN 81 MG ENTERIC TABLET PO (08:53)
[2022-02-15] MEDS: ESCITALOPRAM OXALATE 10 MG TABLET PO (08:53)
[2022-02-15 08:54] LABS: Blood Urea Nitrogen 24 mg/dL (7-17); Calcium 8.5 mg/dL (8.4-10.2); Carbon Dioxide > 40 mmol/L (22-30); Chloride 92 mmol/L (98-107); Estimated CRCL calculation 101 ml/min; Estimated Glomerular Filt Rate > 60; Glucose 113 mg/dL (65-110); Sodium 137 mmol/L (137-145)
[2022-02-15] MEDS: LOSARTAN POTASSIUM 50 MG TABLET PO (08:54)
[2022-02-15] MEDS: CEPHALEXIN 500 MG CAPSULE PO (09:21)
[2022-02-15] MEDS: BACLOFEN 10 MG TABLET PO ×2 (09:21→13:10)
[2022-02-15 09:35] LABS: Hypochromasia 1+ (NORMAL)
[2022-02-15] MEDS: FUROSEMIDE 40 MG TABLET PO (10:45)
--- NOTE | 2022-02-15 11:40 | PM.DS ---
DS: Admitting Diagnosis Discharge Date 02/15/22 Admitting Diagnosis Chest pain DS: Discharge Diagnosis Discharge Diagnosis (1) Atrial fibrillation: Code(s): I48.91 - Unspecified atrial fibrillation Status: Acute Assessment and Plan: EKG on admission showing sinus tachycardia and PACs and PVCs. During her hospital course, she was noted to have an irregular rhythm on cardiac exam so EKG repeated showing AFib with tachycardia. CTA negative fo PE on admission (02/08) and she has been on Lovenox so doubt PE. LE Dopplers negative for DVT. AFib probably related to pulmonary disease. TSH normal. [id number] score 4 so Eliquis added. Echo already completed and reviewed. Cardiology following and appreciate their input. When walking, she was noted to have elevated heart rate so Metoprolol added after discussion with Cardiology. Walking in halls today showed heart rate controlled. (2) Chest pain: Qualifiers: Chest pain type: other chest pain Qualified Code(s): R07.89 - Other chest pain Code(s): R07.9 - Chest pain, unspecified Status: Acute Assessment and Plan: Chest pain was pleuritic in nature. CTA chest 02/08 showing no PE but mild pulmonary edema and moderate-sized pericardial effusion. Troponin x3 negative. EKG on admission with no acute ST segment or T-wave changes. Cardiology consulted and appreciate their input. Benton that the chest pain related to COPD and CHF exacerbation. (3) Diastolic CHF: Qualifiers: Heart failure chronicity: acute on chronic Qualified Code(s): I50.33 - Acute on chronic diastolic (congestive) heart failure Code(s): I50.30 - Unspecified diastolic (congestive) heart failure Status: Acute Assessment and Plan: Patient presents with SOB but no change in her chronic hypoxia. CTA does show mild pulmonary edema and she was also having pedal edema. Benton patient with Acute on Chronic Diastolic CHF. Echo showing EF 65-70% with Grade I diastolic dysfunction. Treated with IV Lasix and renal function remained stable. She was changed back to oral Lasix (4) COPD (chronic obstructive pulmonary disease): Code(s): J44.9 - Chronic obstructive pulmonary disease, unspecified Status: Acute Assessment and Plan: COPD with exacerbation. She was on Solu-Medrol and nebs. Benton probably more CHF then COPD. No wheezing so Solu-Medrol stopped. She remained stable on her 4L. (5) Chronic respiratory failure: Code(s): J96.10 - Chronic respiratory failure, unspecified whether with hypoxia or hypercapnia Status: Acute Assessment and Plan: Patient on 4L at rest and 6L with exertion. She was on 4L on admission and has remained stable on her current oxygen requirement. (6) Epistaxis: Code(s): R04.0 - Epistaxis Status: Acute Assessment and Plan: Patient was having epistaxis. ENT was consulted and appreciate their input. Patient underwent a bilateral nasal endoscopy 02/11/22. No clear etiology of the epistaxis. She is to follow up in ENT clinic. Monitor closely for recurrence since she is on anticoagulation. (7) Obstructive sleep apnea: Onset Date: ~2016 Code(s): G47.33 - Obstructive sleep apnea (adult) (pediatric) Status: Acute Assessment and Plan: BiPAP ordered here which she tolerated. (8) UTI (urinary tract infection): Code(s): N39.0 - Urinary tract infection, site not specified Status: Acute Assessment and Plan: UA noted. UCx growing Proteus sensitive to Rocephin. Treated with Rocephin (9) Diabetes mellitus: Code(s): E11.9 - Type 2 diabetes mellitus without complications Status: Acute Assessment and Plan: A1c 6.2. The patient's blood glucose was monitored closely with AccuCheks covering with sliding scale. Hypoglycemia protocol was available as needed. Glucose was uncontrolled related to steroids but better since stero
--- NOTE | 2022-02-15 11:54 | PCPTNOTE ---
Attempted to see patient for Physical Therapy this afternoon. RN stated to come back later so she could give patient pain medicine first.
[2022-02-15 11:55] LABS: Glucose Point of Care 130 mg/dl (65-105)
== END 2022-02-15 16:15 | disposition home health service (06) | DRG 291 ==
LOC: ANHED 17:33 → ANHIMU 19:28 → ANH3MEDSUR 02-10 15:21
PROVIDERS: Physician Assistant; Student in an Organized Health Care Education/Training Program; Admitting Provider Internal Medicine; Emergency Provider Emergency Medicine; PCP Emergency Medicine; Visit Provider Internal Medicine
DX: I11.0 Hypertensive heart disease with heart failure (principal); I50.33 Acute on chronic diastolic (congestive) heart failure; J96.22 Acute and chronic respiratory failure with hypercapnia; J96.21 Acute and chronic respiratory failure with hypoxia; Z68.43 Body mass index [BMI] 50.0-59.9, adult; I31.3 Pericardial effusion (noninflammatory); N39.0 Urinary tract infection, site not specified; B96.4 Proteus (mirabilis) (morganii) as the cause of diseases classified elsewhere; Z20.822 Contact with and (suspected) exposure to COVID-19; E11.42 Type 2 diabetes mellitus with diabetic polyneuropathy; R04.0 Epistaxis; J34.3 Hypertrophy of nasal turbinates; J34.2 Deviated nasal septum; L73.8 Other specified follicular disorders; K21.9 Gastro-esophageal reflux disease without esophagitis; E03.9 Hypothyroidism, unspecified; J43.9 Emphysema, unspecified; G47.33 Obstructive sleep apnea (adult) (pediatric); F31.9 Bipolar disorder, unspecified; E66.01 Morbid (severe) obesity due to excess calories; Z96.1 Presence of intraocular lens; E78.5 Hyperlipidemia, unspecified; Z86.16 Personal history of COVID-19; Z99.81 Dependence on supplemental oxygen; Z98.49 Cataract extraction status, unspecified eye; Z87.891 Personal history of nicotine dependence; Z79.01 Long term (current) use of anticoagulants
CPT/HCPCS: 36415; 71046; 71275; 80048; 80053; 81001; 82948; 83036; 83690; 83735; 83880; 84100; 84443; 84484; 85025; 85027; 85380; 85610; 85730; 87077; 87086; 87088; 87186; 93005; 93970; 94640; 96372; 96374; 96375; 96376; 97162; 97165; 99285; A9270; C8929; C9803; G0378; J0696; J1650; J1815; J1940; J2270; J2930; Q9957; Q9967; U0003; U0005

== ENCOUNTER 2022-02-23 04:07 | Emergency (ER) | payer MEDICARE, MEDICAID, SELFPAY ==
--- NOTE | 2022-02-23 | ECG_ITS ---
Measurements Intervals [place] Rate: 76 P: TN: 0 QRS: -42 QRSD: 133 T: 104 QT: 385 QTc: 435 Interpretive Statements ECTOPIC ATRIAL OR ACCELERATED JUNCTIONAL RHYTHM ATRIAL PREMATURE COMPLEXES LEFT BUNDLE BRANCH BLOCK BASELINE WANDER- V1-V6 ABNORMAL ECG Electronically Signed On 02-26-2022 7:56:42 CDT by Rodrick Magallanes D.O.
[2022-02-23 04:04] VITALS: PULSE 83; RESP 26; O2SAT 96
--- NOTE | 2022-02-23 04:26 | PC.NURSE ---
ERP and respiratory at bedside to intubate pt. Verbal order for 30 of etomidate adn 100 of succcholyne. RSI kit utilized. Meds pulled up by this RN. RN Joseline and RN Edith verified dose. ERP went to prepare for intubation. Pt noted to have no pulse. Pt began to be bagged and CPR started 0428. EPI started 0429. Pt being bagged. Cardiac pads applied. 1amp of bi carb given at 0431. Pulse check at 0432 no pulse, PEA, compressions resumed. 2nd dose of EPI given at 0432. 0435 PUlse check, asystole noted. 3rd dose of EPI at 0435. 0439 Pulse check, asystole, compressions resumed. 1mg of atropine pushed at 0439. US at bedside with ERP no pulse noted. PUlse check at 0441 pulse noted. COmpressions resumed. 4th EPI given at 0442. 1mg of atropin given at 0443. 0445 5th EPI given, Pulse check noted. NO pulse. CPR resumed. 0448 6th EPI, 0449 pulse check no pulse noted. Asystole on monitor, compressions resumed. 0451 PUlse check, no pulse, Compressions resumed. 0451 7th EPI given. Pt continues to be bagged by respiratory. No family at this time. 0454 pulse check, faint irregular bradycardiac pulse noted. COmpressions resumed. 8th epi given at 0455. 0458 9th epi given. 0500 pulse check, asystole noted with one beat, no pulse noted, compressions resumed. 0501 10th EPI given. 0504 11th EPI given 0504. 0505 Pulse and rhythm check. Asystole noted no cardiac activity. TOD 0505.
[2022-02-23 05:10] VITALS: TEMP 37.7
--- NOTE | 2022-02-23 05:24 | ED.AMS ---
HPI - Altered Mental Status General Chief Complaint: Cardiac Arrest/CPR Stated Complaint: unresponsive Time Seen by Provider: 02/23/22 04:18 Source: EMS and other History of Present Illness HPI narrative: Patient brought in unresponsive. Approximately 30 minutes prior to ER arrival son heard a loud noise in the house went to evaluate the patient and she was unresponsive they called EMS. EMS noted hypoxia started patient on a nonrebreather and transported to the ER for further evaluation. EMS reported giving Narcan in route with no significant response Review of Systems Review of Systems: ROS unobtainable: Yes unobtainable due to mental status PMFSH Comments Unable to obtain Exam Narrative: GENERAL: Obese chronically ill appearing HEAD: Normocephalic, atraumatic. EYES: Pupils small minimally reactive ENT: Nares clear, no rhinorrhea or epistaxis. Mucous membranes moist. NECK: Supple. No masses. CHEST: Increased work of breathing with diffuse rhonchi in all lung shipman HEART: Irregular rhythm normal rate ABDOMEN: Soft, nontender, nondistended, EXTREMITIES: Symmetric pitting edema bilateral lower extremities SKIN: Skin is cool and wet NEURO: Patient localizes to sternal rub Course Vital Signs Vital signs: Vital Signs Pulse Rate 83 02/23/22 04:04 Respiratory Rate 26 H 02/23/22 04:04 Pulse Oximetry 96 02/23/22 04:04 Temperature 37.7 C H 02/23/22 05:10 Pulse Rate 83 02/23/22 04:04 Respiratory Rate 26 H 02/23/22 04:04 Pulse Oximetry 96 02/23/22 04:04 MDM - Altered Mental Status MDM Narrative Medical decision making narrative: Patient was brought in unresponsive patient was placed on the monitor IV access was obtained labs and imaging were initiated. ABG was obtained and showed severe acidosis as well as hypercarbia. Concerning for acute respiratory failure. We were preparing for an emergent intubation when the patient's breathing changed became agonal no pulse was appreciated and monitor showed asystole. CPR was initiated. Please see code sheet for details. Patient was given multiple rounds of epinephrine with monitor showing PEA and asystole. Patient did have an electrical activity that occasionally translated to a pulse at a rate that was not compatible with life however atropine was attempted. CPR was continued with continued efforts epinephrine bicarb. CPR was performed for greater than 30 minutes without significant change in her cardiac activity. Given the duration the continued PEA and asystole continued resuscitative efforts were discontinued as further treatments would likely be unsuccessful. Patient's pupils were fixed and dilated at time of there is no card activity seen on ultrasound at time of . the sister/POA of the patient was made aware during the very code. She was enroute when patient . ABG Data ABG results: 02/23/22 04:18 Puncture Site Right brachial ABG pH 7.071 L* ABG pCO2 89.6 H* ABG pO2 70.7 L ABG PO2/FiO2 Ratio 1.18 ABG HCO3 25.4 ABG O2 Saturation 85.6 L* ABG O2 Content 16.9 ABG Base Excess -6.8 A-a Gradient 258.5 Oxyhemoglobin 86.9 L* Total Hemoglobin 13.8 O2 Delivery Device Non-rebreather mask O2 Liters/Min 15.0 FiO2 90 ECG Data EKG #1: Attestation: I personally reviewed and interpreted this ECG as follows: ECG completion date: 02/23/22 ECG completion time: 04:12 Interpretation: Atrial fibrillation, normal axis, rate 76, QRS 129, QTc 411. NO significant ST elevation/depression, no significant t wave changes. NO acute ischemia or electrolyte disturbance. Discharge Plan Discharge Clinical Impression: Cardiac arrest Patient Disposition: Condition: Follow-up/Referrals: Bruno,Kalpesh Almaraz MD [Primary Care Provider] - Time of Disposition: 05:55
[2022-02-23 06:04] LABS: pH ABG 7.071 (7.350-7.450)
[2022-02-23 06:05] LABS: HCO3 ABG 25.4 mEq/l (22.0-26.0); PCO2 ABG 89.6 mmHg (35.0-45.0); PO2 ABG 70.7 mmHg (80.0-100.0)
[2022-02-23 06:06] LABS: Base Excess ABG -6.8 mEq/l (+/-2.0); Oxygen Saturation ABG 85.6 % (95.0-100.0); Total Hemoglobin 13.8 g/dL (12.0-18.0)
[2022-02-23 06:07] LABS: Alveolar/Arterial O2 Gradient 258.5 mmHg; Oxygen Content ABG 16.9 %vol (16.0-22.0); Oxyhemoglobin 86.9 % THb (90.0-100.0)
[2022-02-23 06:08] LABS: Device NON-REBREATHER MASK; Fractional Inspired Oxygen 90 %; PO2 FiO2 Ratio Arterial Blood 1.18 %; Site Drawn RIGHT BRACHIAL
--- NOTE | 2022-02-23 06:37 | PC.NURSE ---
[facility] released pt. [place] attempting to reach PCP DR. HERNANDEZ. Family provided home and returned home. Pts ring was given to family. Pt does not have any other belongings. [place] released [place] [facility] [place].
--- NOTE | 2022-02-23 07:48 | PC.NURSE ---
physical education professor notified that dr hampton will sign certificate. physical education professor will release to home/[facility].
== END 2022-02-23 06:50 | disposition expired ==
PROVIDERS: Emergency Provider Emergency Medicine; PCP Emergency Medicine
DX: I46.9 Cardiac arrest, cause unspecified (principal); I44.7 Left bundle-branch block, unspecified; I49.1 Atrial premature depolarization
CPT/HCPCS: 36600; 82805; 92950; 93005; 99285; J0171; J0330; J0461